=== PATIENT | male | born 1955 | race Caucasian/White ===

== ENCOUNTER 2020-03-30 03:39 | Inpatient (IN) | payer OTHER ==
[~2020-03-30] VITALS: Ht 182.9 cm; Wt 80.0 kg
[2020-03-30] MEDS ORDERED: MORPHINE SULFATE 4 MG/ML SYR/VIAL IV ONE ×2 (04:15→07:00)
[2020-03-30] MEDS ORDERED: ONDANSETRON HCL 4 MG/2 ML VIAL IV ONE ×2 (04:15→07:00)
[2020-03-30 04:54] LABS: Eosinophils # (auto) 0 10 ^3/uL (0-0.8); Eosinophils % (auto) 0.2 % (0.0-7.0); Hemoglobin 17.8 g/dL (13.5-17.5); Monocytes # (auto) 0.7 10 ^3/uL (0-1.3)
[2020-03-30 04:56] LABS: Basophils # (auto) 0 10 ^3/uL (0-0.2); Basophils % (auto) 0.3 % (0.0-2.0); Hematocrit 51.7 % (41.0-53.0); Lymphocytes % (auto) 6.1 % (10.0-50.0); Mean Corpuscular Hemoglobin 30.9 pg (28.0-32.0); Mean Corpuscular Hgb Conc. 34.5 g/dL (32.0-36.0); Mean Corpuscular Volume 89.6 fL (80.0-100.0); Monocytes % (auto) 4.6 % (0.0-12.0); Neutrophils # (auto) 14.4 10 ^3/uL (1.6-8.6); Neutrophils % (auto) 88.8 % (37.0-80.0); Nucleated Red Blood Cells % 0.1 %; Platelet Count (auto) 241 10^3/uL (140-450); Red Blood Cells 5.77 10^6/uL (4.5-5.90); Red Cell Distribution Width 14.4 % (11.8-14.3); White Blood Cell 16.2 10^3/uL (4.4-10.8)
[2020-03-30 05:17] LABS: Albumin 4.4 g/dL (3.4-5.0); Calcium 10.1 mg/dL (8.5-10.1); Potassium 4.3 mmol/L (3.5-5.1)
[2020-03-30 05:21] LABS: BUN/Creatinine Ratio 12.9
[2020-03-30 05:39] LABS: Bilirubin, Total 0.7 mg/dL (0.2-1.0); Total Protein 8.1 g/dL (6.4-8.2)
[2020-03-30] MEDS ORDERED: CLINDAMYCIN 900MG IV 50 ML IV ONE (09:30)
[2020-03-30] MEDS ORDERED: MORPHINE SULF INJ 2 MG/ML SYRINGE 1ML IV PRN ×3 (09:30→10:45)
[2020-03-30] MEDS ORDERED: PIPERACILLIN-TAZOB 3.375GM 100 ML IV ONE (09:30)
[2020-03-30] MEDS ORDERED: SODIUM CHLORIDE 0.9% 3,000 ML IV ONE (09:30)
[2020-03-30] MEDS ORDERED: NITROGLYCERIN 0.4 MG SL TAB SL PRN (09:30)
[2020-03-30] MEDS ORDERED: GASTROGRAFIN 120 ML SOL ONE (10:03)
[2020-03-30] MEDS ORDERED: DEXTROSE (50%) 50ML SYRG IV PRN (10:45)
[2020-03-30] MEDS ORDERED: cefTRIAXone 1GM/50ML D5W 50 ML IV ONE (10:45)
[2020-03-30] MEDS ORDERED: PROMETHAZINE HCL 25 MG/ML 1ML IV PRN (10:45)
[2020-03-30] MEDS ORDERED: BENZOCAINE (DENTAL) 20 % SPRAY 60ML MT ONE ×2 (10:50→11:00)
[2020-03-30] MEDS ORDERED: FAMOTIDINE (10MG/ML) 2ML VL IV ONE (11:15)
[2020-03-30] MEDS: FAMOTIDINE (10MG/ML) 2ML VL IV SCH ×2 (11:40→23:03)
[2020-03-30] MEDS: ACCU-CHEK COMFORT CURVE STRIP VI SCH ×2 (12:55→18:32)
[2020-03-30 15:09] VITALS: BP 130/73
--- NOTE | 2020-03-30 15:09 | NUR ---
Telemetry admit from ER ITZ WHITAKER admitted to Telemetry unit after SBAR received. Patient oriented to LASHAE GAMEZ RN primary RN, unit, room, bed, and unit policies regarding patient care.Patient now on continuous telemetry monitoring, tele box # 13 and telemetry reading on arrival to unit is 87. Patient placed on bedside oxygen 2L NC, respirations even and unlabored. Patient has NG tube to right nares, currently not on suction at this time. Reviewed plan of care with patient, patient verbalized understanding. Patient is NPO at this time. Bed in low and locked position, call light within reach. Will continue to monitor Q1 hour and PRN.
[2020-03-30] MEDS: metroNIDAZOLE 500MG/100ML 100 ML IV SCH ×2 (15:10→23:03)
[2020-03-30] MEDS: SODIUM CHLORIDE 0.9% 1,000 ML IV SCH ×5 (15:10→22:50)
--- NOTE | 2020-03-30 16:13 | NUR ---
Call from Dr. Nikia BANSAL instructed this RN to keep patient NPO, keep NG tube in place and off of suction. Will implement orders. Patient updated on plan of care, verbalized understanding. Will continue to monitor Q1 hour and PRN.
[2020-03-30 16:49] LABS: Urine Bacteria NONE SEEN /hpf (None Seen); Urine Blood 1+ /uL (Negative); Urine Mucus MANY (None Seen); Urine Specific Gravity 1.029 (1.001-1.035); Urine WBC 12 /hpf (0 - 3)
--- NOTE | 2020-03-30 18:50 | NUR ---
Bowel movements Patient has had multiple bowel movements, liquid brown stool. Patient denies pain at this time. Will continue to monitor Q1 hour and PRN.
--- NOTE | 2020-03-30 19:05 | NUR ---
Closing Note Report given to retail shift manager RN. No signs or symptoms of distress noted at this time.
--- NOTE | 2020-03-30 19:20 | NUR ---
Opening Shift Note Assumed care of patient after receiving report from EMMA Arizmendi. Patient awake and alert with no S/S of distress/SOB or pain. Call light within reach, bed in lowest position x2 side rails, HOB low fowlers Instructed on POC and to call for assist PRN, will continue to monitor for changes Q1hr and PRN.
[2020-03-30 21:30] VITALS: BP 114/64
[2020-03-31] MEDS: ACCU-CHEK COMFORT CURVE STRIP VI SCH ×4 (00:22→18:00)
[2020-03-31 04:30] VITALS: BP 111/54
[2020-03-31] MEDS: SODIUM CHLORIDE 0.9% 1,000 ML IV SCH ×4 (05:30→16:45)
[2020-03-31] MEDS: metroNIDAZOLE 500MG/100ML 100 ML IV SCH ×2 (05:52→14:00)
[2020-03-31 06:32] LABS: Basophils # (auto) 0 10 ^3/uL (0-0.2); Basophils % (auto) 0.4 % (0.0-2.0); Eosinophils # (auto) 0.2 10 ^3/uL (0-0.8); Eosinophils % (auto) 2.5 % (0.0-7.0); Hematocrit 41.8 % (41.0-53.0); Hemoglobin 14.1 g/dL (13.5-17.5); Lymphocytes # (auto) 1.5 10 ^3/uL (0.4-5.4); Lymphocytes % (auto) 18.1 % (10.0-50.0); Mean Corpuscular Hemoglobin 30.5 pg (28.0-32.0); Mean Corpuscular Hgb Conc. 33.8 g/dL (32.0-36.0); Mean Corpuscular Volume 90.1 fL (80.0-100.0); Monocytes # (auto) 0.6 10 ^3/uL (0-1.3); Monocytes % (auto) 7.7 % (0.0-12.0); Neutrophils # (auto) 5.9 10 ^3/uL (1.6-8.6); Neutrophils % (auto) 71.3 % (37.0-80.0); Platelet Count (auto) 173 10^3/uL (140-450); Red Blood Cells 4.64 10^6/uL (4.5-5.90); Red Cell Distribution Width 14.4 % (11.8-14.3); White Blood Cell 8.3 10^3/uL (4.4-10.8)
[2020-03-31 06:56] LABS: Potassium 3.9 mmol/L (3.5-5.1)
[2020-03-31 06:59] LABS: BUN/Creatinine Ratio 27.3
[2020-03-31 07:01] LABS: Bilirubin, Total 0.5 mg/dL (0.2-1.0); Total Protein 5.6 g/dL (6.4-8.2)
--- NOTE | 2020-03-31 07:30 | NUR ---
Opening Note Received report from forming tube selector RN. Patient is awake, alert and oriented x4. No signs or symptoms of distress noted at this time. Patient denies pain at this time. Patient has NG tube to right nares, clamped at this time. Patient is on 2L NC, respirations even and unlabored. Reviewed plan of care with patient, patient verbalized understanding. Bed in low and locked position, call light within reach. Will continue to monitor Q1 hour and PRN.
[2020-03-31 09:00] VITALS: BP 98/55
[2020-03-31] MEDS ORDERED: cefTRIAXone 1GM/50ML D5W 50 ML IV SCH (09:00)
--- NOTE | 2020-03-31 10:20 | NUR ---
Patient refusing NG Tube Patient requesting to have NG tube removed at this time. Patient educated on importance of having NG tube in place, patient continues to request to have it removed. NG tube removed. Patient tolerated well. Will continue to monitor Q1 hour and PRN.
[2020-03-31] MEDS: FAMOTIDINE (10MG/ML) 2ML VL IV SCH (10:24)
[2020-03-31 13:00] VITALS: BP 109/56
--- NOTE | 2020-03-31 13:08 | NUR ---
Dr. Nguyễn at bedside Discussing plan of care with patient and this RN. Instructed this RN to advanced diet, he can discharge home later today if he tolerates diet. Patient verbalized understanding. Will continue to monitor Q1 hour and PRN.
[2020-03-31] MEDS ORDERED: ATO40T PO (15:09)
[2020-03-31] MEDS ORDERED: TICA1TAB PO (15:11)
[2020-03-31 16:10] VITALS: BP 109/56
--- NOTE | 2020-03-31 18:48 | NUR ---
Discharge Discharge instructions given as ordered. Encourage to follow up with PMD as instructed. All questions and concerns addressed. Patient verbalized understanding. Medication reconciliation form completed and copy given to patient. IV removed with catheter intact, pressure dressing applied. Telemetry unit returned to ICU. Patient ambulated to private vehicle with all personal belongings. No signs or symptoms of distress noted at this time.
== END 2020-03-31 18:40 | disposition home or self-care (01) | DRG 390 ==
LOC: EDBD 03:39 → ER 03:42 → TELE 03:43 → TELE-EAST 15:25
PROVIDERS: ADMIT Internal Medicine; ATTEND Hospitalist
DX: K56.609 Unspecified intestinal obstruction, unspecified as to partial versus complete obstruction (principal); E66.9 Obesity, unspecified; R73.9 Hyperglycemia, unspecified; F17.210 Nicotine dependence, cigarettes, uncomplicated; I25.10 Atherosclerotic heart disease of native coronary artery without angina pectoris; Z83.3 Family history of diabetes mellitus; Z85.038 Personal history of other malignant neoplasm of large intestine; Z95.5 Presence of coronary angioplasty implant and graft; Z68.29 Body mass index [BMI] 29.0-29.9, adult; D72.829 Elevated white blood cell count, unspecified
CPT/HCPCS: 36415; 71045; 74176; 74250; 80053; 81001; 82962; 83036; 83690; 85025; 93005; 96365; 96367; 96368; 96375; 96376; G0378; J0696; J2405; J2543; J3490

== ENCOUNTER → 2022-12-16 | Outpatient (CLI) | payer OTHER ==
[~2022-12-16] MED LIST: ATO40T PO; TICA1TAB PO
[2022-12-16 10:31] LABS: Basophils # (auto) 0 10 ^3/uL (0-0.2); Basophils % (auto) 0.4 % (0.0-2.0); Eosinophils # (auto) 0.1 10 ^3/uL (0-0.8); Eosinophils % (auto) 1.6 % (0.0-7.0); Hematocrit 47.7 % (41.0-53.0); Hemoglobin 16.5 g/dL (13.5-17.5); Lymphocytes # (auto) 1.2 10 ^3/uL (0.4-5.4); Lymphocytes % (auto) 14.6 % (10.0-50.0); Mean Corpuscular Hemoglobin 30.8 pg (28.0-32.0); Mean Corpuscular Hgb Conc. 34.7 g/dL (32.0-36.0); Mean Corpuscular Volume 88.9 fL (80.0-100.0); Monocytes # (auto) 0.6 10 ^3/uL (0-1.3); Monocytes % (auto) 7.4 % (0.0-12.0); Neutrophils # (auto) 6.5 10 ^3/uL (1.6-8.6); Nucleated Red Blood Cells % 0.1 %; Red Blood Cells 5.36 10^6/uL (4.5-5.90); Red Cell Distribution Width 14.1 % (11.8-14.3); White Blood Cell 8.5 10^3/uL (4.4-10.8)
[2022-12-16 10:42] LABS: Urine Bacteria NONE SEEN /hpf (None Seen); Urine Blood TRACE /uL (Negative); Urine Hyaline Cast FEW /lpf (0 - 2); Urine Mucus FEW (None Seen); Urine Specific Gravity 1.021 (1.001-1.035); Urine WBC 2 /hpf (0 - 3)
[2022-12-16 12:18] LABS: Albumin 4.2 g/dL (3.4-5.0); BUN/Creatinine Ratio 18.1; Calcium 9.4 mg/dL (8.5-10.1); Potassium 4.7 mmol/L (3.5-5.1)
[2022-12-16 12:25] LABS: Bilirubin, Total 0.6 mg/dL (0.2-1.0); Total Protein 7.1 g/dL (6.4-8.2)
== END | disposition home or self-care (01) ==
LOC: LAB 09:47
PROVIDERS: ATTEND Internal Medicine
DX: E55.9 Vitamin D deficiency, unspecified (principal); E79.0 Hyperuricemia without signs of inflammatory arthritis and tophaceous disease; E61.2 Magnesium deficiency; R73.09 Other abnormal glucose; R94.6 Abnormal results of thyroid function studies; D51.9 Vitamin B12 deficiency anemia, unspecified; R82.79 Other abnormal findings on microbiological examination of urine; R82.90 Unspecified abnormal findings in urine
CPT/HCPCS: 36415; 80053; 80061; 81001; 82306; 82607; 83036; 83735; 84443; 84550; 85025

== ENCOUNTER 2023-11-12 09:45 | Emergency (ER) | payer OTHER ==
[~2023-11-12] VITALS: Ht 185.4 cm; Wt 87.5 kg
[2023-11-12 10:13] LABS: Basophils # (auto) 0 10 ^3/uL (0-0.2); Basophils % (auto) 0.1 % (0.0-2.0); Eosinophils # (auto) 0.2 10 ^3/uL (0-0.8); Eosinophils % (auto) 1.4 % (0.0-7.0); Hematocrit 48.2 % (41.0-53.0); Hemoglobin 16.3 g/dL (13.5-17.5); Lymphocytes # (auto) 1.6 10 ^3/uL (0.4-5.4); Lymphocytes % (auto) 13.9 % (10.0-50.0); Mean Corpuscular Hgb Conc. 33.7 g/dL (32.0-36.0); Mean Corpuscular Volume 91.9 fL (80.0-100.0); Monocytes # (auto) 0.9 10 ^3/uL (0-1.3); Monocytes % (auto) 7.4 % (0.0-12.0); Neutrophils # (auto) 8.9 10 ^3/uL (1.6-8.6); Neutrophils % (auto) 77.2 % (37.0-80.0); Nucleated Red Blood Cells % 0.1 %; Red Blood Cells 5.25 10^6/uL (4.5-5.90); Red Cell Distribution Width 14.7 % (11.8-14.3); White Blood Cell 11.5 10^3/uL (4.4-10.8)
[2023-11-12 10:19] VITALS: TEMP 98.1
[2023-11-12 10:20] VITALS: PULSE 63; RESP 15; O2SAT 97
[2023-11-12] MEDS ORDERED: NITROGLYCERIN 2% OINT 1GM PKG TD STA (10:22)
[2023-11-12] MEDS ORDERED: ASPirin 81 mg TAB PO ONE (10:30)
[2023-11-12 10:37] LABS: Alanine Aminotransferase 50 U/L (7-40); Albumin 4.6 g/dL (3.2-4.8); Alkaline Phosphatase 101 U/L (46-116); Anion Gap 6 (5-15); Aspartate Aminotransferase 28 U/L (13-40); BUN/Creatinine Ratio 18.4 (10.0-20.0); Blood Urea Nitrogen 19 mg/dL (9-23); Calcium 9.8 mg/dL (8.5-10.1); Carbon Dioxide 24 mmol/L (20-30); Chloride 108 mmol/L (98-107); Glucose 134 mg/dL (74-106); Potassium 4.6 mmol/L (3.5-5.1); Sodium 138 mmol/L (136-145)
[2023-11-12 10:38] LABS: Bilirubin, Total 0.6 mg/dL (0.2-1.0); Total Protein 6.8 g/dL (5.7-8.2)
[2023-11-12 11:11] LABS: INR 0.99 (0.9-1.15); Partial Thromboplastin Time 25.1 SEC (24.5-34.5); Prothrombin Time 10.4 sec (9.3-11.8)
[2023-11-12] MEDS ORDERED: IOHEXOL 350 MG/ML 100ML IJ ONE (11:28)
[2023-11-12 12:21] LABS: Urine Bacteria NONE SEEN /hpf (None Seen); Urine Blood Negative /uL (Negative); Urine Clarity Clear (Clear); Urine Color Yellow (Yellow); Urine Protein, UAD Negative (Negative); Urine Specific Gravity 1.015 (1.001-1.035); Urine Urobilinogen Normal (Negative); Urine WBC <1 /hpf (0 - 3)
[2023-11-12] MEDS ORDERED: MORPHINE SULFATE INJ 2 MG/ml SYRG IV ONE (13:45)
[2023-11-12] MEDS ORDERED: ONDANSETRON HCL 4 MG/2 ML VIAL IV ONE (13:45)
[2023-11-12 15:20] VITALS: BP 106/55; PULSE 66; RESP 15; O2SAT 96
== END 2023-11-12 15:17 | disposition left against medical advice (07) ==
LOC: ER 09:45
DX: R07.89 Other chest pain (principal); I25.2 Old myocardial infarction; I25.10 Atherosclerotic heart disease of native coronary artery without angina pectoris; F17.210 Nicotine dependence, cigarettes, uncomplicated; Z85.9 Personal history of malignant neoplasm, unspecified; Z79.899 Other long term (current) drug therapy
CPT/HCPCS: 36415; 71045; 71275; 80053; 81001; 83735; 83880; 84484; 85025; 85379; 85610; 85730; 93005; 99285; Q9967

== ENCOUNTER → 2024-02-27 | Day surgery (SDC) | payer OTHER ==
[2024-02-24 12:12] LABS: Basophils # (auto) 0 10 ^3/uL (0-0.2); Basophils % (auto) 0.3 % (0.0-2.0); Eosinophils # (auto) 0.1 10 ^3/uL (0-0.8); Hematocrit 50.5 % (41.0-53.0); Hemoglobin 16.7 g/dL (13.5-17.5); Lymphocytes # (auto) 1.4 10 ^3/uL (0.4-5.4); Lymphocytes % (auto) 13.8 % (10.0-50.0); Mean Corpuscular Hemoglobin 30.5 pg (28.0-32.0); Mean Corpuscular Hgb Conc. 33.1 g/dL (32.0-36.0); Mean Corpuscular Volume 92.3 fL (80.0-100.0); Monocytes # (auto) 0.8 10 ^3/uL (0-1.3); Monocytes % (auto) 7.7 % (0.0-12.0); Neutrophils # (auto) 7.9 10 ^3/uL (1.6-8.6); Neutrophils % (auto) 77.2 % (37.0-80.0); Nucleated Red Blood Cells % 0.3 %; Red Blood Cells 5.47 10^6/uL (4.5-5.90); Red Cell Distribution Width 14.7 % (11.8-14.3); White Blood Cell 10.3 10^3/uL (4.4-10.8)
[2024-02-24 12:27] LABS: INR 0.96 (0.9-1.15); Partial Thromboplastin Time 24.9 SEC (24.5-34.5); Prothrombin Time 10.2 sec (9.3-11.8)
[2024-02-24 12:32] LABS: Alanine Aminotransferase 57 U/L (7-40); Albumin 4.9 g/dL (3.2-4.8); Alkaline Phosphatase 106 U/L (46-116); Anion Gap 3 (5-15); Aspartate Aminotransferase 19 U/L (13-40); BUN/Creatinine Ratio 13.2 (10.0-20.0); Bilirubin, Total 0.7 mg/dL (0.2-1.0); Blood Urea Nitrogen 14 mg/dL (9-23); Calcium 10.6 mg/dL (8.5-10.1); Carbon Dioxide 28 mmol/L (20-30); Chloride 108 mmol/L (98-107); Glucose 104 mg/dL (74-106); Potassium 4.5 mmol/L (3.5-5.1); Sodium 139 mmol/L (136-145); Total Protein 7.2 g/dL (5.7-8.2)
[~2024-02-27] VITALS: Ht 188 cm; Wt 88.5 kg
[~2024-02-27] MED LIST changes: -ATO40T PO; +ATOR-507 PO; +DexAMETHasone SOD PHOS 10MG/1ML VIAL INJ ONE; +EZET10TA22 PO; +MEPERIDINE HCL (25 MG/ML) 1ML VIAL ONE; +MIDAZOLAM HCL 2MG/2ML 2ml VIAL (1mg/ml) ONE; +fentaNYL CITRATE 100 MCG/2 ML VL ONE
[2024-02-27 14:35] VITALS: PULSE 66; RESP 16; TEMP 97.8; O2SAT 98
[2024-02-27 15:20] VITALS: BP 130/67; PULSE 69; RESP 15; O2SAT 91
== END | disposition home or self-care (01) ==
LOC: GI 09:28
PROVIDERS: ATTEND Internal Medicine Gastroenterology
DX: R19.4 Change in bowel habit (principal); K44.9 Diaphragmatic hernia without obstruction or gangrene; K29.50 Unspecified chronic gastritis without bleeding; D12.3 Benign neoplasm of transverse colon; K25.9 Gastric ulcer, unspecified as acute or chronic, without hemorrhage or perforation; K63.5 Polyp of colon; K64.8 Other hemorrhoids; F17.210 Nicotine dependence, cigarettes, uncomplicated; J44.9 Chronic obstructive pulmonary disease, unspecified; I25.2 Old myocardial infarction; Z93.4 Other artificial openings of gastrointestinal tract status; Z86.010 Personal history of colon polyps; Z85.038 Personal history of other malignant neoplasm of large intestine; Z95.5 Presence of coronary angioplasty implant and graft; Z80.8 Family history of malignant neoplasm of other organs or systems; Z79.899 Other long term (current) drug therapy; Z98.890 Other specified postprocedural states
CPT/HCPCS: 36415; 43239; 45380; 80053; 85025; 85610; 85730; 88305; 88312; 88342; J1100; J2175; J2250; J3010; J7030

== ENCOUNTER → 2024-08-31 | Outpatient (CLI) | payer OTHER ==
[~2024-08-31] MED LIST changes: -DexAMETHasone SOD PHOS 10MG/1ML VIAL INJ ONE; -MEPERIDINE HCL (25 MG/ML) 1ML VIAL ONE; -MIDAZOLAM HCL 2MG/2ML 2ml VIAL (1mg/ml) ONE; -fentaNYL CITRATE 100 MCG/2 ML VL ONE
[2024-08-31 08:59] LABS: Urine Bacteria None Seen /hpf (None Seen)
[2024-08-31 10:06] LABS: Basophils # (auto) 0 10 ^3/uL (0-0.2); Basophils % (auto) 0.4 % (0.0-2.0); Eosinophils # (auto) 0.3 10 ^3/uL (0-0.8); Eosinophils % (auto) 4.1 % (0.0-7.0); Hematocrit 47.5 % (41.0-53.0); Hemoglobin 16.2 g/dL (13.5-17.5); Lymphocytes # (auto) 1.4 10 ^3/uL (0.4-5.4); Mean Corpuscular Hemoglobin 31.4 pg (28.0-32.0); Mean Corpuscular Hgb Conc. 34.2 g/dL (32.0-36.0); Mean Corpuscular Volume 91.8 fL (80.0-100.0); Monocytes # (auto) 0.6 10 ^3/uL (0-1.3); Monocytes % (auto) 8.3 % (0.0-12.0); Neutrophils % (auto) 68.2 % (37.0-80.0); Nucleated Red Blood Cells % 0.1 %; Platelet Count (auto) 189 10^3/uL (140-450); Red Blood Cells 5.18 10^6/uL (4.5-5.90); White Blood Cell 7.3 10^3/uL (4.4-10.8)
[2024-08-31 10:18] LABS: Urine Blood Negative /uL (Negative); Urine Clarity Clear (Clear); Urine Color Yellow (Yellow); Urine Protein, UAD Negative (Negative); Urine Specific Gravity 1.021 (1.001-1.035); Urine Urobilinogen Normal (Negative); Urine WBC 1 /hpf (0 - 3); Urine pH 5.5 (5.0-9.0)
[2024-08-31 10:25] LABS: Alanine Aminotransferase 50 U/L (7-40); Albumin 4.4 g/dL (3.2-4.8); Alkaline Phosphatase 99 U/L (46-116); Anion Gap 9 (5-15); BUN/Creatinine Ratio 16.5 (10.0-20.0); Blood Urea Nitrogen 17 mg/dL (9-23); Carbon Dioxide 24 mmol/L (20-31); Chloride 112 mmol/L (98-107); Glucose 111 mg/dL (74-106); LDL Cholesterol 52 mg/dL (< 100); Magnesium 2.1 mg/dL (1.6-2.6); Potassium 4.3 mmol/L (3.5-5.1); Sodium 145 mmol/L (136-145); Triglycerides 102 mg/dL (< 150)
[2024-08-31 10:26] LABS: Aspartate Aminotransferase 22 U/L (13-40)
[2024-08-31 10:27] LABS: Bilirubin, Total 0.6 mg/dL (0.2-1.0); Cholesterol 112 mg/dL (< 200); HDL Cholesterol 43 mg/dL (40-59); Total Protein 6.6 g/dL (5.7-8.2)
[2024-08-31 11:45] LABS: Uric Acid 5.7 mg/dL (3.7-9.2)
[2024-08-31 12:15] LABS: Folate (Folic Acid) 12.78 ng/mL (>5.38)
== END | disposition home or self-care (01) ==
LOC: LAB 08:33
PROVIDERS: ATTEND Internal Medicine
DX: C44.92 Squamous cell carcinoma of skin, unspecified (principal); E55.9 Vitamin D deficiency, unspecified; E78.2 Mixed hyperlipidemia; R73.03 Prediabetes; I25.118 Atherosclerotic heart disease of native coronary artery with other forms of angina pectoris; F17.200 Nicotine dependence, unspecified, uncomplicated; Z79.899 Other long term (current) drug therapy
CPT/HCPCS: 36415; 80053; 80061; 81001; 82306; 82607; 82746; 83036; 83735; 84443; 84550; 85025; 87086

== ENCOUNTER 2024-10-08 15:05 | Emergency (ER) | payer OTHER ==
[~2024-10-08] VITALS: Ht 185.4 cm; Wt 89.3 kg
--- NOTE | 2024-10-08 15:48 | ED.PDOC ---
General HPI Comments 68 y.o male presents to the ED for a chief complaint of ongoing chronic intermittent hematuria that started one year ago. Patient reports following up with multiple PCP's and Dr. Canada for evaluation and has had US and urine tests done which came out normal. Patient mentions he was scheduled for a cystogram on 09/27/24 but it got cancelled and is now experiencing suprapubic discomfort. No dysuria, fever, or chills reported. Vital signs were stable on arrival. Chief Complaint: Urinary Time Seen by MD: 15:26 Primary Care Provider: IBETH Reviewed notes: Nurses Notes, Medications, Allergies Allergies: Coded Allergies: NO KNOWN ALLERGIES (Unverified , 03/30/20) Home Meds Active Scripts Acetaminophen (Acetaminophen) 500 Mg Tab, 500 MG PO Q4HP PRN, #30 TAB Prov:DIONI CHEUNG PAC 10/08/24 Levofloxacin Hemihydrate (LEVAQUIN 500 MG) 500 Mg Tab, 1 TAB PO DAILY, #7 TAB Prov:DIONI CHEUNG PAC 10/08/24 Reported Medications Ezetimibe (Zetia) 10 Mg Tab, 10 MG PO DAILY, TAB 02/24/24 Ticagrelor Base (Brilinta) 60 Mg Tab, 60 MG PO BID, TAB 03/31/20 Atorvastatin Calcium (Lipitor) 40 Mg Tab, 1 TAB PO QPM, #90 TAB 1 Refill 03/31/20 Information Source: Patient Mode of Arrival: Ambulatory Severity: Moderate Timing: Other Onset: Spontaneous Symptoms: Hematuria History of: Kidney stone Location: Suprapubic Modifying factors: None associated signs and symptoms: Abdominal Pain, Hematuria Past Medical History PAST MEDICAL HISTORY: CAD, Cancer, Kidney Stones, [place] Surgical History: PTCA Family History Family History: Unknown Social History Smoker: Cigarettes Alcohol: Denies ETOH Use Drugs: Denies Drug Use Lives In: Home Constitutional: denies: chills, diaphoresis, fatigue, fever, malaise, sweats, weakness, others EENTM: denies: blurred vision, double vision, ear bleeding, ear discharge, ear drainage, ear pain, ear ringing, eye pain, eye redness, hearing loss, mouth pain, mouth swelling, nasal discharge, nose bleeding, nose congestion, nose pain, photophobia, tearing, throat pain, throat swelling, voice changes, others Respiratory: denies: cough, hemoptysis, orthopnea, SOB at rest, shortness of breath, SOB with excertion, stridor, wheezing, others Cardiovascular: denies: chest pain, dizzy spells, diaphoresis, Dyspnea on exertion, edema, irregular heart beat, left arm pain, lightheadedness, palpitations, PND, syncope, others Gastrointestinal: reports: abdominal pain; denies: abdomen distended, blood streaked bowels, constipated, diarrhea, dysphagia, difficulty swallowing, hematemesis, melena, nausea, poor appetite, poor fluid intake, rectal bleeding, rectal pain, vomiting, others Genitourinary: reports: hematuria; denies: burning, dysuria, flank pain, frequency, incontinence, penile discharge, penile sore, pain, testicle pain, testicle swelling, urgency, others Neurological: denies: dizziness, fainting, headache, left sided numbness, left sided weakness, numbness, paresthesia, pre-existing deficit, right sided numbness, right sided weakness, seizure, speech problems, tingling, tremors, weakness, others Musculoskeletal: denies: back pain, gout, joint pain, joint swelling, muscle pain, muscle stiffness, neck pain, others Integumetry: denies: bruises, change in color, change in hair/nails, dryness, laceration, lesions, lumps, rash, wounds, others Allergic/Immunocompromised: denies: Difficulty Healing, Frequent Infections, Hives, Itching, others Hematologic/Lymphatic: denies: anemia, blood clots, easy bleeding, easy bruising, swollen glands, others Endocrine: denies: excessive hunger, excessive sweating, excessive thirst, excessive urination, flushing, intolerance to cold, intolerance to heat, unexpl ained weight gain, unexplained weight loss, others Psychiatric: denies: anxiety, bipolar disorder, depression, hopeless, panic disorder, schizophrenia, sleepless, suicidal, others All Other Systems: Reviewed and Negative Physical Exam General Appearance: No Apparent Distress, Normal HEENT: Normal ENT Inspection, Pharynx Normal, TMs Normal Neck: Full Range of Motion, Non-Tender, Normal, Normal Inspection Respiratory: Chest Non-Tender, Lungs Clear, No Accessory Muscle Use, No Respiratory Distress, Normal Breath Sounds Cardiovascular: No Edema, No JVD, No Murmur, No Gallop, Normal Peripheral Pulses, Regular Rate/Rhythm Breast Exam: Deferred Gastrointestinal: Suprapubic, Tenderness Genitalia: Deferred Pelvic: Deferred Rectal: Deferred Extremities: No calf tenderness, Normal capillary refill, Normal inspection, Normal range of motion, Non-tender, No pedal edema Musculoskeletal : Apperance: Normal Neurologic: Alert, ct manager II-XII nml as Tested, No Motor Deficits, Normal Affect, Normal Mood, No Sensory Deficits Cerebellar Function: Normal Reflexes: Normal Skin: Dry, Normal Color, Warm Lymphatic: No Adenopathy Was a procedure done? Was a procedure done?: No Differential Diagnosis Kidney stone (Female): N/A Urinary Problem (Male): Prostatitis, Urethritis, Urolithiasis, UTI, Other (Bladder mass) X-Ray, Labs, Meds, VS Vital Signs Date Time Temp Pulse Resp B/P (MAP) Pulse Ox O2 Delivery O2 Flow Rate FiO2 10/08/24 17:36 97.5 80 20 114/69 (84) 99 97.5 10/08/24 17:36 20 98 Room Air 10/08/24 15:18 98.3 91 18 133/86 (102) 97 Lab Test 10/08/24 16:00 10/08/24 15:12 Range/Units White Blood Count 8.3 4.4-10.8 10^3/uL Red Blood Count 5.37 4.5-5.90 10^6/uL Hemoglobin 16.7 13.5-17.5 g/dL Hematocrit 49.7 41.0-53.0 % Mean Corpuscular Volume 92.5 80.0-100.0 fL Mean Corpuscular Hemoglobin 31.1 28.0-32.0 pg Mean Corpuscular Hemoglobin Concent 33.7 32.0-36.0 g/dL Red Cell Distribution Width 14.6 H 11.8-14.3 % Platelet Count 191 140-450 10^3/uL Mean Platelet Volume 8.1 6.9-10.8 fL Neutrophils (%) (Auto) 67.8 37.0-80.0 % Lymphocytes (%) (Auto) 21.1 10.0-50.0 % Monocytes (%) (Auto) 8.9 0.0-12.0 % Eosinophils (%) (Auto) 1.8 0.0-7.0 % Basophils (%) (Auto) 0.4 0.0-2.0 % Neutrophils # (Auto) 5.6 1.6-8.6 10 ^3/uL Lymphocytes # (Auto) 1.7 0.4-5.4 10 ^3/uL Monocytes # (Auto) 0.7 0-1.3 10 ^3/uL Eosinophils # (Auto) 0.2 0-0.8 10 ^3/uL Basophils # (Auto) 0 0-0.2 10 ^3/uL Nucleated Red Blood Cells 0.3 % Sodium Level 142 136-145 mmol/L Potassium Level 4.2 3.5-5.1 mmol/L Chloride Level 109 H 98-107 mmol/L Carbon Dioxide Level 27 20-31 mmol/L Anion Gap 6 5-15 Blood Urea Nitrogen 15 9-23 mg/dL Creatinine 1.06 0.700-1.30 mg/dL Glomerular Filtration Rate Calc 76 >90 mL/min BUN/Creatinine Ratio 14.2 10.0-20.0 Serum Glucose 91 74-106 mg/dL Lactic Acid Level 1.7 0.4-2.0 mmol/L Calcium Level 10.6 H 8.7-10.4 mg/dL Total Bilirubin 0.6 0.2-1.0 mg/dL Aspartate Amino Transferase (AST) 25 13-40 U/L Alanine Aminotransferase (ALT) 51 H 7-40 U/L Alkaline Phosphatase 120 H 46-116 U/L Total Protein 7.0 5.7-8.2 g/dL Albumin 4.7 3.2-4.8 g/dL Urine Color Colorless Yellow Urine Clarity Turbid H Clear Urine pH 6.5 5.0-9.0 Urine Specific Wynne 1.010 1.001-1.035 Urine Protein Trace H Negative Urine Ketones Negative Negative Urine Blood 3+ H Negative /uL Urine Nitrite Negative Negative Urine Bilirubin Negative Negative Urine Urobilinogen Normal Negative mg/dL Urine Leukocyte Esterase 1+ Negative /uL Urine RBC 2448 0 - 3 /hpf Urine WBC 12 0 - 3 /hpf Urine Squamous Epithelial Cells None seen <5 /hpf Urine Bacteria Few H None Seen /hpf Urine Mucus Few None Seen Urine Glucose Normal Normal mg/dL Current Medications Medications (Trade) Dose Ordered Sig/Jon Route Start Time Stop Time Status Last Admin Levofloxacin (Levaquin Tablet) 750 mg ONCE ONCE PO 10/08/24 18:00 10/08/24 18:01 DC 12/27/24 18:08 X-Ray, Labs, Meds, VS Comment All studies performed the ED today were evaluated by me personally. Laboratories showed a urinary tract infection with significant blood deposition in the urine. CT of the abdomen and pelvis with contrast revealed a 1.1 x 1.1 x 1.6 cm density within the left posterior urinary bladder at the level of the ureterovesicular junction concerning for mass. Punctate nonobstructing left renal calculus. 2.2 cm left renal cyst. Mild wall thickening of the proximal small bowel. Minimal wall edema of the ascending colon. Patient appears to have a bladder mass that is causing his hematuria event. Patient will need to be seen by a specialist and oncologist for long-term evaluation and management. Time of 1ST Reevaluation: 18:12 Reevaluation 1ST: Improved Consultation: PCP, Urology, Other (Oncology) Patient Education/Counseling: Diagnosis, Treatment, Prognosis Family Education/Counseling: Diagnosis, Treatment, Prognosis Departure 1 Departure Time of Disposition: 18:12 Impression: Primary Impression: UTI (urinary tract infection) Additional Impression: Bladder mass Disposition: 01 HOME / SELF CARE / HOMELESS Condition: Stable Additional Instructions: Advised patient utilize antibiotics as directed until completion additionally, patient will need to follow up with the primary care provider for urologic specialty as well as Oncology to address his bladder mass concerns. e-Prescriptions Acetaminophen (Acetaminophen) 500 Mg Tab 500 MG PO Q4HP PRN, #30 TAB Prov: DIONI CHEUNG PAC 10/08/24 Levofloxacin Hemihydrate (LEVAQUIN 500 MG) 500 Mg Tab 1 TAB PO DAILY, #7 TAB Prov: DIONI CHEUNG PAC 10/08/24 Discharged With: Self, Spouse Critical Care Note Critical Care Time?: No Stability Stability form required: No I personally scribed for DIONI CHEUNG PAC ([email or web address]) on 10/08/24 at 15:48. Electronically submitted by Lena Stafford ([facility]). DIONI CHEUNG PAC Oct 08, 2024 15:48 LASHANDA OWENS MD Oct 08, 2024 18:38
[2024-10-08 16:15] LABS: Basophils # (auto) 0 10 ^3/uL (0-0.2); Basophils % (auto) 0.4 % (0.0-2.0); Eosinophils # (auto) 0.2 10 ^3/uL (0-0.8); Eosinophils % (auto) 1.8 % (0.0-7.0); Hematocrit 49.7 % (41.0-53.0); Hemoglobin 16.7 g/dL (13.5-17.5); Lymphocytes # (auto) 1.7 10 ^3/uL (0.4-5.4); Lymphocytes % (auto) 21.1 % (10.0-50.0); Mean Corpuscular Hemoglobin 31.1 pg (28.0-32.0); Mean Corpuscular Hgb Conc. 33.7 g/dL (32.0-36.0); Mean Corpuscular Volume 92.5 fL (80.0-100.0); Monocytes # (auto) 0.7 10 ^3/uL (0-1.3); Monocytes % (auto) 8.9 % (0.0-12.0); Neutrophils # (auto) 5.6 10 ^3/uL (1.6-8.6); Neutrophils % (auto) 67.8 % (37.0-80.0); Nucleated Red Blood Cells % 0.3 %; Platelet Count (auto) 191 10^3/uL (140-450); Red Blood Cells 5.37 10^6/uL (4.5-5.90); Red Cell Distribution Width 14.6 % (11.8-14.3); White Blood Cell 8.3 10^3/uL (4.4-10.8)
[2024-10-08 16:24] LABS: Urine Bacteria FEW /hpf (None Seen); Urine Blood 3+ /uL (Negative); Urine Clarity Turbid (Clear); Urine Color Colorless (Yellow); Urine Mucus FEW (None Seen); Urine Protein, UAD TRACE (Negative); Urine Urobilinogen Normal (Negative); Urine WBC 12 /hpf (0 - 3); Urine pH 6.5 (5.0-9.0)
[2024-10-08 16:29] LABS: Albumin 4.7 g/dL (3.2-4.8); Anion Gap 6 (5-15); Aspartate Aminotransferase 25 U/L (13-40); BUN/Creatinine Ratio 14.2 (10.0-20.0); Blood Urea Nitrogen 15 mg/dL (9-23); Carbon Dioxide 27 mmol/L (20-31); Glucose 91 mg/dL (74-106); Potassium 4.2 mmol/L (3.5-5.1); Sodium 142 mmol/L (136-145)
[2024-10-08 16:30] LABS: Bilirubin, Total 0.6 mg/dL (0.2-1.0)
[2024-10-08 16:44] LABS: Alanine Aminotransferase 51 U/L (7-40); Alkaline Phosphatase 120 U/L (46-116); Calcium 10.6 mg/dL (8.7-10.4); Chloride 109 mmol/L (98-107)
[2024-10-08 17:36] VITALS: BP 114/69; PULSE 80; RESP 20; TEMP 97.5; O2SAT 98
--- NOTE | 2024-10-08 17:52 | DVH ---
Exam: CT CT AB PEL WITH IV CON ONLY History: Alberto hematuria Comparison Study: 03/30/2020 TECHNIQUE: Multidetector CT of the and pelvis with contrast. Axial, coronal and sagittal multiplanar reformats were obtained from the axial data set by the technologist. Radiation Dose Information: CT Dose: CTDI volume is 24.84 mGy. Dose-length product is 1303.58 mGy*cm FINDINGS: Bibasilar atelectasis. Partially visualized heart is unremarkable. Liver, spleen, gallbladder, pancreas and left adrenal gland are unremarkable. 2.2 x 1 cm right adrena l nodule measuring up to 26 Hounsfield units. Punctate nonobstructing left renal lower pole calculus. 2.2 cm left renal upper pole cyst. Mild bilat eral pelviectasis. Bilateral ureters unremarkable. There is 1.1 x 1.1 x 1.6 cm density within the lef t posterior urinary bladder level of the left ureteral vesicle junction. Prostate is normal in size w ith multiple coarse calcifications. Stomach is unremarkable. Mild wall thickening of proximal small bowel loops. The remainder of the sm all bowel loops unremarkable. Appendix is unremarkable. Minimal wall edema of the ascending colon. Mo derate amount of fecal material within the colon. No evidence of intraperitoneal free air or free fluid. Dilatation of the infrarenal aorta up to 3 cm. [id number] atherosclerotic calcification of the aorta and bilateral iliacs. No significant lymphadenopathy. Redemonstration of presacral soft tissue thickening and calcification ; relatively unchanged from chano or imaging of 03/30/2020. Small fat containing bilateral inguinal hernias. The soft tissues unremarkable. Diffuse demineraliza tion. No destructive osseous lesions are noted. Mild loss of vertebral body height of L5. 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 IMPRESSION: 1.1 x 1.1 x 1.6 cm density within the left posterior urinary bladder at the level of the ureterovesic al junction concerning for mass. Punctate nonobstructing left renal calculus. 2.2 cm left renal cyst. Mild wall thickening of proximal small bowel loops which may be due to inadequate distention with ent eritis not excluded. Minimal wall edema of the ascending colon. Correlate for mild colitis. Moderate amount of fecal mat erial within the colon. Additional findings as above.
[2024-10-08] MEDS: levoFLOXacin 250 MG TAB PO ONE (18:08)
[2024-10-08] MEDS ORDERED: LEVO500T91 PO (18:13)
[2024-10-08] MEDS ORDERED: ACET500T58 PO (18:13)
[2024-10-08] MEDS: IOHEXOL 300 MG/ML 100ML BOTTLE IJ ONE (18:27)
== END 2024-10-08 18:25 | disposition home or self-care (01) ==
LOC: ER 15:05
DX: N39.0 Urinary tract infection, site not specified (principal); N32.9 Bladder disorder, unspecified; F17.210 Nicotine dependence, cigarettes, uncomplicated; I25.10 Atherosclerotic heart disease of native coronary artery without angina pectoris; N28.1 Cyst of kidney, acquired; R31.0 Gross hematuria; Z98.890 Other specified postprocedural states
CPT/HCPCS: 36415; 74177; 80053; 81001; 83605; 85025; 99285; Q9967

== ENCOUNTER 2024-10-14 12:02 | Inpatient (IN) | payer OTHER ==
[2024-10-14] VITALS (8 sets, daily range): BP systolic 115–156; BP diastolic 50–61; PULSE 68–98; RESP 11–20; TEMP 97.3–98.1; O2SAT 94–100
[~2024-10-14] VITALS: Ht 185.4 cm; Wt 94.2 kg
[~2024-10-14 12:02] MED LIST changes: +ACET500T58 PO; +LEVO500T91 PO
[2024-10-14] MEDS ORDERED: MIDAZOLAM HCL 2MG/2ML 2ml VIAL (1mg/ml) ONE (13:15)
[2024-10-14] MEDS ORDERED: fentaNYL CITRATE 100 MCG/2 ML VL ONE (13:15)
[2024-10-14] MEDS ORDERED: PROPOFOL 10 MG/ML 20 ML IV ONE (13:15)
[2024-10-14] MEDS ORDERED: METOCLOPRAMIDE HCL 5MG/ml INJ 2ml VIAL ONE (13:17)
[2024-10-14] MEDS ORDERED: ONDANSETRON HCL 4 MG/2 ML VIAL ONE (13:17)
[2024-10-14] MEDS ORDERED: ONDANSETRON HCL 4 MG/2 ML VIAL IV ONE (13:30)
[2024-10-14] MEDS ORDERED: HYDROmorphone HCL 2 MG/ML VL/or syr IV PRN (13:30)
[2024-10-14] MEDS ORDERED: CIPROFLOXACIN 400MG/200ML 200 ML IV ONE (14:42)
[2024-10-14] MEDS ORDERED: MEPERIDINE HCL (25 MG/ML) 1ML VIAL ONE (15:01)
[2024-10-14] MEDS: HYDROmorphone HCL 2 MG/ML VL/or syr IV ONE ×2 (16:10→16:40)
[2024-10-14] MEDS ORDERED: MORPHINE SULFATE 4 MG/ML SYR/VIAL ONE (16:57)
--- NOTE | 2024-10-14 18:49 | POSTOP ---
Post-Operative Note Post-Operative Note Preop Diagnosis Gross hematuria Bladder mass on CT scan Positive smoking history Postop Diagnosis: Same Operation performed Trans urethral resection of bladder tumor Specimen Left trigone/posterior bladder mass Anesthesia: General Anesthesiologist: Dr. Dave Surgeon Yanci Goff Date 10/14/24 Time 18:47 YANCI GOFF MD Oct 14, 2024 18:49
[2024-10-14] MEDS: MORPHINE SULFATE 4 MG/ML SYR/VIAL IV PRN (21:13)
[2024-10-15] VITALS (7 sets, daily range): BP systolic 103–112; BP diastolic 43–62; PULSE 64–75; RESP 17–19; TEMP 97.8–98.1; O2SAT 90–94
--- NOTE | 2024-10-15 09:29 | DVHDS2 ---
New Physician D'charge PN Admitting Diagnosis Admitting Diagnosis Gross hematuria Bladder mass on CT scan Positive smoking history Discharge Diagnosis Same Operations or Procedures Trans urethral resection of bladder tumor Reason(s) For Hospitalization Surgery Treatment Plan Discharge Condition of Discharge Fair Disposition Home Discharge Instructions Diet: Regular Activity: Light activity Activity comment: as tolerated Avoid ASA and any other blood thinners Medications: given Follow Up Care Follow Up/Referral: 2 weeks Discharge Statement: "Patient was advised to return to the ER or call 911 if any headaches, dizziness, shortness of breath, chest pain, abdominal pain, bleeding, fevers, or worsening of medical condition. Patient was counseled about treatment plan, medications, possible side effects, patientverbalized understanding. All questions were answered to the best of my ability. This discharge took greater then 30 minutes in planning, reviewing documentation, counseling the patient, and discussing with other team members." YANCI GOFF MD Oct 15, 2024 09:29
--- NOTE | 2024-10-15 10:04 | ECG ---
[facility] Test Date: 2024-10-14 Test Time: 14:16:21 Pat Name: ITZ WHITAKER Department: Room: 0285 B Gender: M [employer] Lead: fernando : 1955 Requested By: YANCI GOFF Order Number: [id number] Reading MD: Ankit Gipson Measurements Intervals [place] Rate: 67 P: 62 NC: 205 QRS: -66 QRSD: 105 T: 58 QT: 414 QTc: 437 Interpretive Statements Sinus rhythm Multiple ventricular premature complexes Left anterior fascicular block Poor R wave progrssion, precordial leads Electronically Signed On 10-15-2024 10:49:37 PST by Ankit Gipson Please click the below link to view image of tracing.
== END 2024-10-15 14:00 | disposition home or self-care (01) | DRG 670 ==
LOC: OVERFLOW 12:02 → WEST WING 13:00
PROVIDERS: ADMIT Internal Medicine; ATTEND Internal Medicine
PROC: 0TBB8ZZ Excision of Bladder, Via Natural or Artificial Opening Endoscopic (ICD-10-PCS; principal; 2024-10-14 14:44)
DX: D49.4 Neoplasm of unspecified behavior of bladder (principal); R31.0 Gross hematuria; Z87.891 Personal history of nicotine dependence; Z79.899 Other long term (current) drug therapy
CPT/HCPCS: 93005; G0378; J2250; J2405; J2704

== ENCOUNTER → 2024-10-29 | Outpatient (CLI) | payer OTHER ==
[2024-10-29 08:34] LABS: Urine Bacteria None Seen /hpf (None Seen)
[2024-10-29 08:46] LABS: Urine Blood 1+ /uL (Negative); Urine Clarity Clear (Clear); Urine Color Light-Yellow (Yellow); Urine Mucus FEW (None Seen); Urine Protein, UAD TRACE (Negative); Urine Specific Gravity 1.019 (1.001-1.035); Urine Squamous Epithelial Cell FEW /hpf (<5); Urine Urobilinogen Normal (Negative); Urine WBC 24 /hpf (0 - 3)
[2024-10-29 09:21] LABS: Albumin 4.8 g/dL (3.2-4.8); Anion Gap 8 (5-15); Aspartate Aminotransferase 31 U/L (13-40); BUN/Creatinine Ratio 16.5 (10.0-20.0); Blood Urea Nitrogen 18 mg/dL (9-23); Carbon Dioxide 27 mmol/L (20-31); Cholesterol 126 mg/dL (< 200); HDL Cholesterol 43 mg/dL (40-59); LDL Cholesterol 69 mg/dL (< 100); Sodium 144 mmol/L (136-145); Triglycerides 109 mg/dL (< 150)
[2024-10-29 09:22] LABS: Alanine Aminotransferase 67 U/L (7-40); Alkaline Phosphatase 123 U/L (46-116); Bilirubin, Total 0.7 mg/dL (0.2-1.0); Calcium 10.5 mg/dL (8.7-10.4); Chloride 109 mmol/L (98-107); Glucose 116 mg/dL (74-106)
[2024-10-29 09:23] LABS: Folate (Folic Acid) 12.65 ng/mL (>5.38)
[2024-10-29 09:24] LABS: Free T4 (Free Thyroxine) 1.1 ng/dL (0.89-1.76)
[2024-10-29 10:23] LABS: Uric Acid 4.8 mg/dL (3.7-9.2)
== END | disposition home or self-care (01) ==
LOC: LAB 08:12
PROVIDERS: ATTEND Internal Medicine
DX: E61.2 Magnesium deficiency (principal); E79.0 Hyperuricemia without signs of inflammatory arthritis and tophaceous disease; D51.9 Vitamin B12 deficiency anemia, unspecified; E55.9 Vitamin D deficiency, unspecified; E78.49 Other hyperlipidemia; R73.09 Other abnormal glucose; R94.6 Abnormal results of thyroid function studies; R82.90 Unspecified abnormal findings in urine; R68.89 Other general symptoms and signs
CPT/HCPCS: 36415; 80053; 80061; 81001; 82306; 82607; 82746; 83036; 84439; 84550; 87086

== ENCOUNTER → 2025-01-03 | Outpatient (CLI) | payer OTHER | END | disposition home or self-care (01) | LOC: LAB 06:01 | PROVIDERS: ATTEND Urology | DX: C61 Malignant neoplasm of prostate (principal) | CPT/HCPCS: 87086; 87088; 87186 ==

== ENCOUNTER → 2025-01-04 | Outpatient (CLI) | payer OTHER ==
[2025-01-04 13:33] LABS: Urine Bacteria None Seen /hpf (None Seen)
[2025-01-04 13:48] LABS: Urine Blood TRACE /uL (Negative); Urine Clarity Clear (Clear); Urine Color Light-Yellow (Yellow); Urine Protein, UAD Negative (Negative); Urine Specific Gravity 1.011 (1.001-1.035); Urine Squamous Epithelial Cell FEW /hpf (<5); Urine Urobilinogen Normal (Negative); Urine WBC 50 /HPF (0-3); Urine pH 6.5 (5.0-9.0)
== END | disposition home or self-care (01) ==
LOC: LAB 13:30
PROVIDERS: ATTEND Urology
DX: C61 Malignant neoplasm of prostate (principal)
CPT/HCPCS: 81001; 87086

== ENCOUNTER → 2025-03-03 | Outpatient (CLI) | payer OTHER ==
[~2025-03-03] VITALS: Ht 185.4 cm; Wt 89.4 kg
[2025-03-03] MEDS: REGADENOSON 0.4 MG/5 ML SYRG IV ONE ×2 (11:44→11:48)
--- NOTE | 2025-03-03 14:53 | DVHSR ---
APPROVED REPORT Exam: Nuclear Stress Test BMI: 0 Stress Test Details HR Max Heart Rate (APMHR): 149.314879 bpm Target HR (85% APMHR): 126.153524 bpm BP ECG Stress ECG Conclusion lvef 65% inferior wall ischemia is noted LAD on ecg NM EXAM: Myocardial Perfusion REST/STRESS Imaging Protocol: Rest Tc-99m/Stress Tc-99m 1 day Resting Data Rest SPECT myocardial perfusion imaging was performed in supine position 60 minutes following the int ravenous injection of 14.2 mCi of Tc-99m Sestamibi. Time of rest injection: 10:30 Date: 03/03/2025 Time of rest imagin:30 Date: 03/03/2025 Administration Route: IV Administration Site: Right Hand Pharmacologic Stress Pharmacologic stress test was performed by injecting Regadenoson 0.4 mg IV push followed by the intra venous injection of 32.5 mCi of Tc-99m Sestamibi. Time of stress injection: 11:45 Date: 03/03/2025 Time of stress imagin:30 Date: 03/03/2025 Administration Route: IV Administration Site: Right Hand Gated Stress SPECT was performed 45 minutes after stress injection. The images were gated to evaluate regional wall motion and calculate left ventricular ejection fracti on. Stress only was performed in the Supine position. Nuclear Conclusion Nuclear Findings: positive for ischemia lvef 65% inferior wall ischemia is noted LAD on ecg
== END | disposition home or self-care (01) ==
LOC: XYW 10:02
PROVIDERS: ATTEND Student in an Organized Health Care Education/Training Program
DX: I25.110 Atherosclerotic heart disease of native coronary artery with unstable angina pectoris (principal); R06.02 Shortness of breath; R94.31 Abnormal electrocardiogram [ECG] [EKG]
CPT/HCPCS: 78452; 93017; A9500; J2785

== ENCOUNTER → 2025-04-04 | Outpatient (CLI) | payer OTHER ==
[~2025-04-04] VITALS: Ht 182.9 cm; Wt 88.5 kg
[~2025-04-04] MED LIST changes: +ATOR40TA52 PO; +CLOP75TA70 PO; +HYDR-4902 PO; +NAP500T GT; +NAP500T PO; +TAMS0.4C39 PO; +mitoMYcin 40 MG in STERILE WATER 80 ML IS ONE
== END | disposition home or self-care (01) ==
LOC: LAB 12:38 → EDSTATUS 04-05 13:15
PROVIDERS: ATTEND Urology
DX: C67.9 Malignant neoplasm of bladder, unspecified (principal); Z53.8 Procedure and treatment not carried out for other reasons
CPT/HCPCS: J9280

== ENCOUNTER 2025-04-06 07:08 | Day surgery (SDC) | payer OTHER ==
[2025-04-05 11:25] LABS: Urine Bacteria None Seen /hpf (None Seen)
[2025-04-05 11:30] LABS: Basophils # (auto) 0 10 ^3/uL (0-0.2); Basophils % (auto) 0.4 % (0.0-2.0); Eosinophils # (auto) 0.2 10 ^3/uL (0-0.8); Eosinophils % (auto) 2.4 % (0.0-7.0); Hematocrit 47.2 % (41.0-53.0); Hemoglobin 16.2 g/dL (13.5-17.5); Lymphocytes # (auto) 1.6 10 ^3/uL (0.4-5.4); Mean Corpuscular Hemoglobin 30.5 pg (28.0-32.0); Mean Corpuscular Hgb Conc. 34.3 g/dL (32.0-36.0); Mean Corpuscular Volume 88.8 fL (80.0-100.0); Monocytes # (auto) 0.8 10 ^3/uL (0-1.3); Monocytes % (auto) 9.6 % (0.0-12.0); Neutrophils # (auto) 5.5 10 ^3/uL (1.6-8.6); Neutrophils % (auto) 67.6 % (37.0-80.0); Nucleated Red Blood Cells % 0.2 %; Platelet Count (auto) 198 10^3/uL (140-450); Red Blood Cells 5.31 10^6/uL (4.5-5.90); Red Cell Distribution Width 14.5 % (11.8-14.3); White Blood Cell 8.1 10^3/uL (4.4-10.8)
[2025-04-05 11:34] LABS: Urine Blood Negative /uL (Negative); Urine Clarity Clear (Clear); Urine Color Light-Yellow (Yellow); Urine Protein, UAD Negative (Negative); Urine Squamous Epithelial Cell FEW /hpf (<5); Urine Urobilinogen Normal (Negative); Urine WBC 2 /HPF (0-3); Urine pH 5.5 (5.0-9.0)
[2025-04-05 11:49] LABS: INR 0.96 (0.9-1.15); Partial Thromboplastin Time 25.1 SEC (24.5-34.5); Prothrombin Time 10.2 sec (9.3-11.8)
[2025-04-05 11:53] LABS: Alanine Aminotransferase 38 U/L (7-40); Anion Gap 9 (5-15); Aspartate Aminotransferase 22 U/L (<34); BUN/Creatinine Ratio 16.5 (10.0-20.0); Bilirubin, Total 0.6 mg/dL (0.2-1.0); Blood Urea Nitrogen 18 mg/dL (9-23); Carbon Dioxide 27 mmol/L (20-31); Potassium 4.2 mmol/L (3.5-5.1); Sodium 145 mmol/L (136-145); Total Protein 7.1 g/dL (5.7-8.2)
[2025-04-05 11:54] LABS: Albumin 4.9 g/dL (3.2-4.8); Alkaline Phosphatase 119 U/L (46-116); Calcium 10.8 mg/dL (8.7-10.4); Chloride 109 mmol/L (98-107); Glucose 68 mg/dL (74-106)
[~2025-04-06] VITALS: Ht 185.4 cm; Wt 88.5 kg
[2025-04-06] VITALS (8 sets, daily range): BP systolic 106–131; BP diastolic 60–69; PULSE 61–68; RESP 14; TEMP 97.9; O2SAT 94–95
[~2025-04-06 07:08] MED LIST changes: -ACET500T58 PO; -ATOR40TA52 PO; -HYDR-4902 PO; -LEVO500T91 PO; -NAP500T PO; -TAMS0.4C39 PO; -TICA1TAB PO; -mitoMYcin 40 MG in STERILE WATER 80 ML IS ONE
[2025-04-06] MEDS: IODIXANOL 320MG/ML 100ML BTL IV ONE ×2 (12:11→12:17)
[2025-04-06] MEDS: LIDOCAINE 2%HCL (LOCAL ANESTH.) INJ 20ML MDV ONE (12:11)
[2025-04-06] MEDS: HEPARIN IN NS 1000Units/500mL 1,500 ML ONE (12:12)
[2025-04-06] MEDS: VERAPAMIL 2.5MG/ML INJ 2ML VIAL IV ONE (12:13)
[2025-04-06] MEDS: HEPARIN SODIUM (PORCINE) 5000 UNITS/ML 1ML VIAL ONE (12:13)
[2025-04-06] MEDS: ANGIOMAX 250 MG VIAL IV ONE (12:13)
[2025-04-06] MEDS: fentaNYL CITRATE 100 MCG/2 ML VL ONE (12:15)
[2025-04-06] MEDS: MIDAZOLAM HCL 2MG/2ML 2ml VIAL (1mg/ml) ONE (12:16)
[2025-04-06] MEDS: SODIUM CHL 0.9% 0 ML ONE (12:51)
--- NOTE | 2025-04-06 13:06 | DVHOP2 ---
Operative Report - 2 Report Details Date: 04/06/25 Preop Diagnosis: CAD Postop Diagnosis: Normal coronaries. Normal ejection fraction. Normal end-diastolic pressures at rest. Surgeon: Radha Estrella MD Anesthesiologist: Conscious sedation Anesthesia: Mac, Local Consent: The patient was informed of the risks and benefits of the procedure. These include but are not limited to complications of anesthesia, postoperative infection, incomplete relief of symptoms, recurrence of symptoms, damage to blood vessels, nerves and tendons, deep venous thrombosis, pulmonary embolism and possible need for repeat surgery in the future. Complications: No complications Findings: Normal coronaries. No CAD. Indications for Surgery: Chest pain. Abnormal stress test. Name of Procedure Performed Left heart catheterization. Bilateral cine coronary angiography. Left ventriculography. Procedure Details Procedure Details: Prior local anesthesia with 2% lidocaine to the right wrist and full informed consent obtained the patient was prepped and draped in usual fashion followed by placement of a six Occitan sheath into the radial artery through which six Occitan Blayne catheter was used to cannulate both right and left coronary ostia and ve ntriculography without complications. Hemodynamics aortic blood pressure was 110/70 end-diastolic pressure was 12. No gradient across the aortic valve on pullback. Coronary anatomy: The RCA is a large vessel it is nondominant. No stenosis in his proximal mid or distal segments. Left main is large and normal. Left anterior descending is a large vessel it is normal in its proximal mid and distal segments. The circumflex is a large vessel it is dominant. It is normal in its proximal and mid section. The marginals are normal. PDA and posterolateral branches are normal. Ventriculography in the ACOSTA projection shows an EF of 60% no significant anomaly present. Impression: Normal left ventricular end-diastolic pressure at rest. Normal ejection fraction. No CAD. Recommendations: Medical therapy is warranted continue risk factor modification. Condition Good Disposition Home Date of Service: Apr 06, 2025 Billing Provider: RADHA ESTRELLA Sr., MD Cardiology Common Codes: 04881-QRULJFL INP/OBS CARE (High) Cardiology Procedure Codes: 11331-BSBN HEART CATH W/INTRA INJ RADHA ESTRELLA Sr., MD Apr 06, 2025 13:06
== END 2025-04-06 15:16 | disposition home or self-care (01) ==
LOC: CATH 07:08
PROVIDERS: ATTEND Internal Medicine
DX: R94.39 Abnormal result of other cardiovascular function study (principal); J44.9 Chronic obstructive pulmonary disease, unspecified; F17.210 Nicotine dependence, cigarettes, uncomplicated; Z95.5 Presence of coronary angioplasty implant and graft; Z79.01 Long term (current) use of anticoagulants
CPT/HCPCS: 36415; 80053; 81001; 85025; 85610; 85730; 93458; C1887; C1894; J1644; J2250; J3010; Q9967; 99152

== ENCOUNTER → 2025-04-19 | Day surgery (SDC) | payer OTHER ==
[2025-04-18 14:15] LABS: Hematocrit 47.8 % (41.0-53.0); Hemoglobin 16.5 g/dL (13.5-17.5); Mean Corpuscular Hemoglobin 30.9 pg (28.0-32.0); Mean Corpuscular Volume 89.5 fL (80.0-100.0); Nucleated Red Blood Cells % 0.1 %
[2025-04-18 14:18] LABS: Urine Protein, UAD Negative (Negative)
[2025-04-18 14:26] LABS: INR 0.97 (0.9-1.15); Partial Thromboplastin Time 24.2 SEC (24.5-34.5); Prothrombin Time 10.3 sec (9.3-11.8)
[2025-04-18 14:34] LABS: Alkaline Phosphatase 113 U/L (46-116)
[2025-04-18 14:35] LABS: Anion Gap 8 (5-15); BUN/Creatinine Ratio 14.2 (10.0-20.0); Bilirubin, Total 0.7 mg/dL (0.2-1.0); Blood Urea Nitrogen 17 mg/dL (9-23); Carbon Dioxide 26 mmol/L (20-31); Potassium 4.0 mmol/L (3.5-5.1); Sodium 142 mmol/L (136-145); Total Protein 7.1 g/dL (5.7-8.2)
[2025-04-18 14:36] LABS: Alanine Aminotransferase 53 U/L (7-40); Albumin 4.9 g/dL (3.2-4.8); Calcium 11.1 mg/dL (8.7-10.4); Chloride 108 mmol/L (98-107); Glucose 139 mg/dL (74-106)
[~2025-04-19] VITALS: Ht 185.4 cm; Wt 88.5 kg
[~2025-04-19] MED LIST changes: +ATOR40TA52 PO; +CIPROFLOXACIN 400MG/200ML 200 ML IV ONE; +ETOMIDATE (2MG/ML) 10ML VIAL IV ONE; +HYDROmorphone HCL 2 MG/ML VL/or syr IV PRN; +MIDAZOLAM HCL 2MG/2ML 2ml VIAL (1mg/ml) IV PRN; +MIDAZOLAM HCL 2MG/2ML 2ml VIAL (1mg/ml) ONE; +MORPHINE SULFATE 4 MG/ML SYR/VIAL IV PRN; +NAP500T PO; +ONDANSETRON HCL 4 MG/2 ML VIAL IV ONE; +PROPOFOL 10 MG/ML 20 ML IV ONE; +TAMS0.4C39 PO; +fentaNYL CITRATE 100 MCG/2 ML VL ONE; +hydrALAZINE HCL 20 MG/ML VL IV PRN; +mitoMYcin 40 MG in STERILE WATER 80 ML IS ONE
[2025-04-19 09:47] VITALS: TEMP 98.6
[2025-04-19 12:15] VITALS: PULSE 69; RESP 12; O2SAT 95
--- NOTE | 2025-04-19 12:18 | DVHNC2 ---
Procedure - OPERATIVE REPORT Pre-op. Diagnosis: Bladder tumor/mass Post-op. Diagnosis: Urethral stricture Bladder stones Bladder tumors Operation: Transurethral resection of bladder tumor Intravesical instillation of Mitomycin C Urethral dilation Anesthesia: General Indications: Patient has recurrent bladder tumors/mass on recent ultrasound Indications, risks, complications, alternatives and benefits of transurethral resection of bladder tumor(s) are discusse with the patient. All questions were encouraged and answered. Patient is aware of risks/complications including but not limited to infection, bleeding, bladder injury requiring additional procedures, urinary incontinence and possible need for additional procedures. Patient consented to proceed. Details of Procedure: Patient is taken to the operating room and underwent appropriate anesthesia. After positioning in lithotomy, area of the genitalia is prepped and draped in usual sterile fashion. Resecting element on the resectoscope with 30 degree lens is used to access the bladder and remove the identified bladder tumors. Proximal urethral stricture is found and dilated with the resectoscope. There are bladder stones embedded on the prior tumor resection site. Stones are removed with Band Electrode. NS irrigation is used with bipolar cautery unit for hemostasis. The resecting element and resectoscope are removed in entirety. [address] catheter is inserted and Mitomycin C 40 mg in 80 ml Sterile water instillation is performed. Specimens: Bladder tumors on left trigone involving the left ureteral orifice Bladder stones remeoved Complications: None Findings: Notes: Unclamp Ward catheter after 30 minutes of instillation of chemotherapeutic agent. YANCI GOFF MD Apr 19, 2025 12:18
--- NOTE | 2025-04-19 12:20 | DVHDS2 ---
New Physician D'charge PN Admitting Diagnosis Admitting Diagnosis Bladder tumor Discharge Diagnosis Urethral stricture Bladder stone Bladder tumor Operations or Procedures Trans urethral resection of bladder tumor Bladder stone removal Urethral dilation Intravesical mitomycin C instillation Reason(s) For Hospitalization Surgery Treatment Plan Discharge Condition of Discharge Good Disposition Home Discharge Instructions Diet: Regular Activity: Light activity Activity comment: Ward care Medications: Given Follow Up Care Follow Up/Referral: Return to clinic in three days for voiding trial Discharge Statement: "Patient was advised to return to the ER or call 911 if any headaches, dizziness, shortness of breath, chest pain, abdominal pain, bleeding, fevers, or worsening of medical condition. Patient was counseled about treatment plan, medications, possible side effects, patientverbalized understanding. All questions were answered to the best of my ability. This discharge took greater then 30 minutes in planning, reviewing documentation, counseling the patient, and discussing with other team members." YANCI GOFF MD Apr 19, 2025 12:20
[2025-04-19 14:00] VITALS: BP 145/53; PULSE 65; RESP 14; O2SAT 95
== END | disposition home or self-care (01) ==
LOC: SUR 09:40
PROVIDERS: ATTEND Urology
DX: N21.0 Calculus in bladder (principal); C67.0 Malignant neoplasm of trigone of bladder; N32.89 Other specified disorders of bladder; N35.919 Unspecified urethral stricture, male, unspecified site; I10 Essential (primary) hypertension; I25.10 Atherosclerotic heart disease of native coronary artery without angina pectoris; J44.9 Chronic obstructive pulmonary disease, unspecified; F17.210 Nicotine dependence, cigarettes, uncomplicated; I25.119 Atherosclerotic heart disease of native coronary artery with unspecified angina pectoris; Z79.899 Other long term (current) drug therapy; Z95.5 Presence of coronary angioplasty implant and graft; Z98.890 Other specified postprocedural states; Z80.8 Family history of malignant neoplasm of other organs or systems
CPT/HCPCS: 36415; 51720; 52234; 80053; 81001; 85025; 85610; 85730; 87086; 88305; 88342; A4315; A4344; J0744; J1100; J2250; J2704; J3010; J9280

== ENCOUNTER 2025-04-28 15:54 | Inpatient (IN) | payer OTHER ==
[~2025-04-28] VITALS: Ht 185.4 cm; Wt 92.4 kg
[~2025-04-28 15:54] MED LIST changes: -ATOR40TA52 PO; -CIPROFLOXACIN 400MG/200ML 200 ML IV ONE; -ETOMIDATE (2MG/ML) 10ML VIAL IV ONE; -HYDROmorphone HCL 2 MG/ML VL/or syr IV PRN; -MIDAZOLAM HCL 2MG/2ML 2ml VIAL (1mg/ml) IV PRN; -MIDAZOLAM HCL 2MG/2ML 2ml VIAL (1mg/ml) ONE; -MORPHINE SULFATE 4 MG/ML SYR/VIAL IV PRN; -NAP500T PO; -ONDANSETRON HCL 4 MG/2 ML VIAL IV ONE; -PROPOFOL 10 MG/ML 20 ML IV ONE; -TAMS0.4C39 PO; -fentaNYL CITRATE 100 MCG/2 ML VL ONE; -hydrALAZINE HCL 20 MG/ML VL IV PRN; -mitoMYcin 40 MG in STERILE WATER 80 ML IS ONE
--- NOTE | 2025-04-28 16:31 | ED.PDOC ---
GI ASSESSMENT HPI Comments 69-year-old male presents with a chief complaint of abdominal pain x onset last night with associated nausea, vomiting, and diarrhea. Patient states that his pain is localized diffusely, nonradiating, nonexertional, describes as aching, and rates his pain a 7/10. Patient mentions that he ate a sandwich last night then had onset of symptoms. Patient reports that potentially it was spoiled. However, patient mentions that he has an extensive history of Bowel Cancer, Colon Cancer, and a bowel resection. No other symptoms or modifying factors present at this time. Vital signs were stable. Chief Complaint: Abdominal Pain Time Seen by MD: 16:25 Primary Care Provider: IBETH Reviewed Notes: Nurses Notes, Medications, Allergies Allergies: Coded Allergies: NO KNOWN ALLERGIES (Unverified , 03/30/20) Home Meds Reported Medications Clopidogrel Bisulfate (CLOPIDOGREL) 75 Mg Tab, 75 MG PO DAILY, TAB 04/04/25 Naproxen (NAPROSYN TABLET) 500 Mg Tb, 500 MG GT DAILYP PRN for prn, TAB 04/04/25 Ezetimibe (Zetia) 10 Mg Tab, 10 MG PO DAILY, TAB 02/24/24 Atorvastatin Calcium (Lipitor) 40 Mg Tab, 1 TAB PO QPM, #90 TAB 1 Refill 03/31/20 Information Source: Patient Mode of Arrival: Ambulatory Timing: Hours Duration: Since onset Prehospital treatment: None Quality: Aching, Cramping, Sharp Vomitus: Food Particles Stool: Watery, Brown Severity: Moderate Recent: Possible spoiled food Recent Hx of: Abdominal Surgery Pain Location: Diffuse Associated sign and symptoms: Nausea, Vomiting, Diarrhea, Abdominal Pain Past Medical History PAST MEDICAL HISTORY: CAD, Cancer, Kidney Stones, DC Surgical History: PTCA Surgical History (Other): Bowel resection Family History Family History: Unknown Social History Smoker: Cigarettes Alcohol: Denies ETOH Use Drugs: Denies Drug Use Lives In: Home Constitutional: denies: chills, diaphoresis, fatigue, fever, malaise, sweats, weakness, others EENTM: denies: blurred vision, double vision, ear bleeding, ear discharge, ear drainage, ear pain, ear ringing, eye pain, eye redness, hearing loss, mouth pain, mouth swelling, nasal discharge, nose bleeding, nose congestion, nose pain, photophobia, tearing, throat pain, throat swelling, voice changes, others Respiratory: denies: cough, hemoptysis, orthopnea, SOB at rest, shortness of breath, SOB with excertion, stridor, wheezing, others Cardiovascular: denies: chest pain, dizzy spells, diaphoresis, Dyspnea on exertion, edema, irregular heart beat, left arm pain, lightheadedness, palpitations, PND, syncope, others Gastrointestinal: reports: abdominal pain, diarrhea, nausea, vomiting; denies: abdomen distended, blood streaked bowels, constipated, dysphagia, difficulty swallowing, hematemesis, melena, poor appetite, poor fluid intake, rectal bleeding, rectal pain, others Genitourinary: denies: burning, dysuria, flank pain, frequency, hematuria, incontinence, penile discharge, penile sore, pain, testicle pain, testicle swelling, urgency, others Neurological: denies: dizziness, fainting, headache, left sided numbness, left sided weakness, numbness, paresthesia, pre-existing deficit, right sided numbness, right sided weakness, seizure, speech problems, tingling, tremors, weakness, others Musculoskeletal: denies: back pain, gout, joint pain, joint swelling, muscle pain, muscle stiffness, neck pain, others Integumetry: denies: bruises, change in color, change in hair/nails, dryness, laceration, lesions, lumps, rash, wounds, others Allergic/Immunocompromised: denies: Difficulty Healing, Frequent Infections, Hives, Itching, others Hematologic/Lymphatic: denies: anemia, blood clots, easy bleeding, easy bruising, swollen glands, others Endocrine: denies: excessive hunger, excessive sweating, excessive thirst, excessive urination, flushing, intolerance to cold, intolerance to heat, unexplained weight gain, unexplained weight loss, others Psychiatric: denies: anxiety, bipolar disorder, depression, hopeless, panic disorder, schizophrenia, sleepless, suicidal, others All Other Systems: Reviewed and Negative Physical Exam General Appearance: Moderate Distress (Moderate distress due to belly pain concerns. Patient was pale and appears to be in poor overall health.), Normal HEENT: Normal ENT Inspection, Pharynx Normal, TMs Normal Neck: Full Range of Motion, Non-Tender, Normal, Normal Inspection Respiratory: Chest Non-Tender, Lungs Clear, No Accessory Muscle Use, No Respiratory Distress, Normal Breath Sounds Cardiovascular: No Edema, No JVD, No Murmur, No Gallop, Normal Peripheral Pulses, Regular Rate/Rhythm Breast Exam: Deferred Gastrointestinal: Tenderness (Diffuse tenderness to palpation throughout the epigastric region extending into the lower abdomen. Reduced bowel sounds noted. No pulsatile masses. Abdomen was mildly rigid.) Genitalia: Deferred Pelvic: Deferred Rectal: Deferred Extremities: No calf tenderness, Normal capillary refill, Normal inspection, Normal range of motion, Non-tender, No pedal edema Musculoskeletal : Apperance: Normal Neurologic: Alert, No Motor Deficits, Normal Affect, Normal Mood, No Sensory Deficits Cerebellar Function: Normal Reflexes: Normal Skin: Dry, Normal Color, Warm Lymphatic: No Adenopathy Was a procedure done? Was a procedure done?: No GI differential Dx Differential Diagnosis: Appendicitis, Bowel Obstruction, Cholangitis, Cholecystitis, Constipation, Diverticular disease, Gastritis/PUD, Gastroenteritis, Pancreatitis X-Ray, Labs, Meds, VS Vital Signs Date Time Temp Pulse Resp B/P (MAP) Pulse Ox O2 Delivery O2 Flow Rate FiO2 04/28/25 20:30 69 17 142/70 04/28/25 20:00 Room Air* 0 21 04/28/25 20:00 98.0 68 24 141/73 (95) 95 98.0 04/28/25 19:30 71 20 136/64 04/28/25 18:55 75 19 133/63 (86) 89 04/28/25 17:27 72 20 95 Room Air* 0 21 04/28/25 17:05 96 18 112/80 04/28/25 16:52 97.7 89 16 112/80 (91) 89 97.7 04/28/25 16:52 89 16 96 Room Air 04/28/25 16:08 97.7 97 18 128/58 (81) 95 97.7 Lab Test 04/28/25 17:30 04/28/25 16:33 Range/Units Troponin I High Sensitivity < 3 L < 3 L </=54 ng/L White Blood Count 14.7 H 4.4-10.8 10^3/uL Red Blood Count 5.76 4.5-5.90 10^6/uL Hemoglobin 17.6 H 13.5-17.5 g/dL Hematocrit 54.5 H 41.0-53.0 % Mean Corpuscular Volume 94.5 80.0-100.0 fL Mean Corpuscular Hemoglobin 30.5 28.0-32.0 pg Mean Corpuscular Hemoglobin Concent 32.3 32.0-36.0 g/dL Red Cell Distribution Width 16.0 H 11.8-14.3 % Platelet Count 224 140-450 10^3/uL Mean Platelet Volume 8.3 6.9-10.8 fL Neutrophils (%) (Auto) 88.0 H 37.0-80.0 % Lymphocytes (%) (Auto) 6.5 L 10.0-50.0 % Monocytes (%) (Auto) 5.2 0.0-12.0 % Eosinophils (%) (Auto) 0.2 0.0-7.0 % Basophils (%) (Auto) 0.1 0.0-2.0 % Neutrophils # (Auto) 13.0 H 1.6-8.6 10 ^3/uL Lymphocytes # (Auto) 1.0 0.4-5.4 10 ^3/uL Monocytes # (Auto) 0.8 0-1.3 10 ^3/uL Eosinophils # (Auto) 0 0-0.8 10 ^3/uL Basophils # (Auto) 0 0-0.2 10 ^3/uL Nucleated Red Blood Cells 0.1 % Sodium Level 141 136-145 mmol/L Potassium Level 4.0 3.5-5.1 mmol/L Chloride Level 104 98-107 mmol/L Carbon Dioxide Level 25 20-31 mmol/L Anion Gap 12 5-15 Blood Urea Nitrogen 25 H 9-23 mg/dL Creatinine 1.16 0.700-1.30 mg/dL Glomerular Filtration Rate Calc 67 >90 mL/min BUN/Creatinine Ratio 21.6 H 10.0-20.0 Serum Glucose 137 H 74-106 mg/dL Calcium Level 10.1 8.7-10.4 mg/dL Lipase 26 12-53 U/L Current Medications Medications (Trade) Dose Ordered Sig/Jon Route Start Time Stop Time Status Last Admin Metoclopramide HCl (Reglan Injection) 10 mg ONCE ONCE IV 04/28/25 16:15 04/28/25 16:16 DC 04/28/25 17:04 Hydromorphone HCl (Dilaudid Injection) 0.5 mg ONCE ONCE IV 04/28/25 16:15 7/17/25 16:16 DC 04/28/25 17:05 Hydromorphone HCl (Dilaudid Injection) 0.5 mg ONCE ONCE IV 04/28/25 20:15 04/28/25 20:16 DC 04/28/25 20:30 Metoclopramide HCl (Reglan Injection) 10 mg ONCE ONCE IV 04/28/25 20:15 04/28/25 20:16 DC 04/28/25 20:28 X-Ray, Labs, Meds, VS Comment All studies performed the ED were evaluated by me personally. Serum laborat ories revealed a mild leukocytosis and what appears to be a macrocytic anemia. Imaging studies confirmed a fatty liver and more importantly, a small bowel obstruction. Patient will be admitted for pain management and possible surgical evaluation. Time of 1ST Reevaluation: 21:27 Reevaluation 1ST: Improved Consultation: PCP, Surgery Patient Education/Counseling: Diagnosis, Treatment, Need For Follow Up Family Education/Counseling: Diagnosis, Treatment, No Family Present SEPSIS Sepsis Screen Date sepsis recognized/suspect: Apr 28, 2025 Time Sepsis recognized/suspect: 1602 Recent Procedure: No On Antibiotic Therapy: No Respiratory Rate >20: No Heart Rate >90: Yes Temp<36 C (96.8 F) or >38.3 C: No SBP <90 or MAP <65 mmHG: No New Acute Mental Status Change: No Is the patient on CPAP, BIPAP,: No Physician Orders Troponin-I Hs (04/29/25 00:00) Troponin-I Hs (04/29/25 03:00) Urinalysis (04/28/25 16:10) Ct Ab Pel With Iv Con Only (04/28/25 16:10) Heplock Iv (04/28/25 16:10) Vital Signs Date Time Temp Pulse Resp B/P (MAP) Pulse Ox O2 Delivery O2 Flow Rate FiO2 04/28/25 20:30 69 17 142/70 04/28/25 20:00 Room Air* 0 21 04/28/25 20:00 98.0 68 24 141/73 (95) 95 98.0 04/28/25 19:30 71 20 136/64 04/28/25 18:55 75 19 133/63 (86) 89 04/28/25 17:27 72 20 95 Room Air* 0 21 04/28/25 17:05 96 18 112/80 04/28/25 16:52 97.7 89 16 112/80 (91) 89 97.7 04/28/25 16:52 89 16 96 Room Air 04/28/25 16:08 97.7 97 18 128/58 (81) 95 97.7 Laboratory Tests Test 04/28/25 16:33 White Blood Count 14.7 10^3/uL (4.4-10.8) H Medications Medications Dose Ordered Sig/Jon Route Start Time Stop Time Status Last Admin Dose Admin Hydromorphone HCl 0.5 mg ONCE ONCE IV 04/28/25 16:15 04/28/25 16:16 DC 04/28/25 17:05 Hydromorphone HCl 0.5 mg ONCE ONCE IV 04/28/25 20:15 04/28/25 20:16 DC 04/28/25 20:30 Metoclopramide HCl 10 mg ONCE ONCE IV 04/28/25 16:15 04/28/25 16:16 DC 04/28/25 17:04 Metoclopramide HCl 10 mg ONCE ONCE IV 04/28/25 20:15 04/28/25 20:16 DC 04/28/25 20:28 Departure 1 Departure Time of Disposition: 21:28 Impression: Primary Impression: Small bowel obstruction Additional Impressions: Hepatic steatosis Leukocytosis Disposition: 09 ADMITTED INPATIENT Condition: Fair Discharged With: Self Critical Care Note Critical Care Time?: No Stability Stability form required: No Heart Score Heart Score: Heart Score Response (Comments) Value History N/A 0 EKG N/A 0 Age N/A 0 Risk Factors N/A 0 Troponin N/A 0 Total 0 I personally scribed for DIONI CHEUNG PAC ([email or web address]) on 04/28/25 at 16:31. Electronically submitted by Kei Pavon ([email or web address]). DIONI CHEUNG PAC Apr 28, 2025 16:31
[2025-04-28 16:52] LABS: Hematocrit 54.5 % (41.0-53.0); Hemoglobin 17.6 g/dL (13.5-17.5); Mean Corpuscular Hemoglobin 30.5 pg (28.0-32.0); Mean Corpuscular Volume 94.5 fL (80.0-100.0); Nucleated Red Blood Cells % 0.1 %
[2025-04-28] MEDS: METOCLOPRAMIDE HCL 5MG/ml INJ 2ml VIAL IV ONE ×2 (17:04→20:28)
[2025-04-28] MEDS: HYDROmorphone HCL 2 MG/ML VL/or syr IV ONE ×2 (17:05→20:30)
[2025-04-28 17:27] VITALS: PULSE 72; RESP 20; O2SAT 95
[2025-04-28 18:38] LABS: Chloride 104 mmol/L (98-107); Potassium 4.0 mmol/L (3.5-5.1); Sodium 141 mmol/L (136-145)
[2025-04-28 18:39] LABS: Anion Gap 12 (5-15); Calcium 10.1 mg/dL (8.7-10.4); Carbon Dioxide 25 mmol/L (20-31)
[2025-04-28 18:44] LABS: BUN/Creatinine Ratio 21.6 (10.0-20.0); Lipase 26 U/L (12-53)
[2025-04-28 18:57] LABS: Blood Urea Nitrogen 25 mg/dL (9-23); Glucose 137 mg/dL (74-106)
[2025-04-28] MEDS: IOHEXOL 300 MG/ML 100ML BOTTLE IJ ONE (20:44)
--- NOTE | 2025-04-28 21:17 | DVH ---
Exam: CT CT AB PEL WITH IV CON ONLY History: Abdominal pain Comparison Study: CT CT AB PEL WITH IV CON ONLY on DOS: 10/08/24 TECHNIQUE: A digital sack sorter image was obtained. During the uneventful, intravenous administration of c ontrast material, multislice data acquisition was obtained through the abdomen and pelvis. The data s et was subsequently reconstructed into axial images. Images reviewed on a wrist examination is an exa mination of axial and multiplanar reformations using a variety of window levels and settings. RADIATION DOSE: DLP 696.69 mGy.cm; CTDI vol 11.16 mGy. Findings: Lungs: Bibasilar atelectasis. Heart: No cardiomegaly or pericardial effusion. Moderate to severe coronary atherosclerosis. Liver: Fatty infiltration of the liver. Gallbladder: Unremarkable. Spleen: Unremarkable Pancreas: Unremarkable Adrenals: 1.9 x 0.8 cm right adrenal nodule. Kidneys: Left renal cysts. Mild left hydroureteronephrosis. No definite evidence of ureterolithiasis . GI tract: Multiple dilated loops of small bowel with transition point in the right lower quadrant at the level of the distal ileum (axial image 75). Postsurgical changes of the bowel. : Unremarkable. Vasculature: Mild aortoiliac atherosclerosis. Lymphadenopathy: Absent Peritoneum: No ascites or pneumoperitoneum Musculoskeletal: Mild multilevel degenerative changes of the thoracolumbar spine. Bilateral pars defe cts of L5. Soft tissues: Unremarkable Impression: 1. Small bowel obstruction with transition point in the right lower quadrant at the distal ileum. 2. Hepatic steatosis. 3. Mild left hydroureteronephrosis without definite evidence of ureterolithiasis. Critical Result: Bowel obstruction Findings discussed with Dr. Castro, at 04/28/2025 09:14 PM, and acknowledged receipt and understanding of the findings.
[2025-04-28 22:12] LABS: Urine Protein, UAD 1+ (Negative)
[2025-04-28] MEDS ORDERED: ACETAMINOPHEN 325 MG TAB PO PRN (22:15)
[2025-04-28] MEDS ORDERED: HYDROcodone-ACET 5/325MG TAB PO PRN (22:15)
[2025-04-28] MEDS ORDERED: MORPHINE SULFATE INJ 2 MG/ml SYRG IV PRN (22:15)
[2025-04-28] MEDS ORDERED: NITROGLYCERIN 0.4 MG SL TAB SL PRN (22:15)
--- NOTE | 2025-04-28 22:23 | DVHHP2 ---
History of Present Illness Reason for Visit: Small-bowel obstruction History of Present Illness The patient is a 69-year-old male with past medical history of Coronary artery disease, cancer, kidney stones, and VA who presented to [facility] ED with complaint of abdominal pain. Patient reports he has been experiencing localized abdominal pain, nonradiating, aching, rating 7/10 numeric scale, associated with nausea, vomiting, diarrhea, getting worse that prompted this visit. Patient was seen and evaluated in the ED, laboratory data shows WBC 14.7, platelets 224, sodium 141, potassium 4.0, BUN 25, creatinine 1.16, glucose 137, calcium 10.1, troponin < 3, lipase 26, blood pressure 144/60, heart rate 70, temperature 98.0 F, O2 saturation 94% on oxygen. Abdomen/pelvis CT revealing small bowel obstruction. Patient was started on IV antibiotic regimen Rocephin, please see medication orders section in the computer. On my assessment, patient denied chest pain, no headache, no dizziness, no shortness of breaths, no abdominal pain, nausea, or vomiting at this moment, no fever, no chills. Patient was admitted for further evaluation and medical management. Past Medical History CAD, Cancer, Kidney Stones, VA Past Surgical History PTCA, Bowel resection Family History Reviewed, noncontributory to the management of this case. Past Social History The patient lives at home, denies smoking, alcohol or illicit drugs abuse. Review of Systems Constitutional: No: Fever, Chills, Sweats, Weakness, Malaise, Other Eyes: No: Pain, Vision change, Conjunctivae inflammation, Eyelid inflammation, Other, Redness ENT: No: Ear pain, Ear discharge, Nose pain, Nose discharge, Nose congestion, Mouth pain, Mouth swelling, Throat pain, Throat swelling, Other Respiratory: No: Cough, Dry, Shortness of breath, SOB with excertion, Wheezing, Hemoptysis, Pleuritic Pain, Sputum, Wheezing, Other Cardiovascular: No: Chest Pain, Palpitations, Orthopnea, Paroxysmal Noc. Dyspnea, Edema, Lt Headedness, Other Gastrointestinal: Nausea, Vomiting, Abdominal Pain, Diarrhea; No: Constipation, Melena, Hematochezia, Other Genitourinary: No Dysuria, No Frequency, No Incontinence, No Hematuria, No Ret ention, No Other Musculoskeletal: No: other, neck pain, shoulder pain, arm pain, back pain, hand pain, leg pain, foot pain Skin: No: Rash, Lesions, Jaundice, Bruising, Other Neurological: No: Weakness, Numbness, Incoordination, Change in speech, Confusion, Seizures, Other Allergies: Coded Allergies: NO KNOWN ALLERGIES (Unverified , 03/30/20) Medications Current Medications Medications Dose Ordered Sig/Jon Route Start Time Stop Time Status Last Admin Dose Admin Ceftriaxone Sodium 50 ml @ 100 mls/hr DAILY@09 IV 04/29/25 09:00 UNV Sodium Chloride 1,000 ml @ 60 mls/hr [id number] IV 04/28/25 22:15 UNV Acetaminophen/ Hydrocodone Bitart 1 tab Q4HP PRN PO 04/28/25 22:15 UNV Ondansetron HCl 4 mg Q4HP PRN IV 04/28/25 22:15 UNV Acetaminophen 650 mg Q6HP PRN PO 04/28/25 22:15 UNV Morphine Sulfate 2 mg Q4HPRN PRN IV 04/28/25 22:15 UNV Nitroglycerin 0.4 mg Q5MINP PRN SL 04/28/25 22:15 UNV Morphine Sulfate 2 mg Q30M PRN IV 04/28/25 22:15 UNV Exam Vital Signs Vital Signs Date Time Temp Pulse Resp B/P (MAP) Pulse Ox O2 Delivery O2 Flow Rate FiO2 04/28/25 21:02 20 93 04/28/25 21:00 70 144/60 (88) 04/28/25 20:00 Room Air* 0 21 04/28/25 20:00 98.0 98.0 General Appearance: Alert, Oriented X3, Cooperative, No acute distress HEENT: Atraumatic, PERRLA, EOMI, Mucous membr. moist/pink Respiratory: Clear to auscultation, Normal air movement Cardiovascular: Regular rate, Normal S1, Normal S2, No murmurs Abdominal: Normal bowel sounds, Soft, No hepatospenomegaly, No masses, Other (Reports tenderness) Extremities: No clubbing, No cyanosis, No edema, Normal pulses, No tenderness/swelling Skin: No rashes, No breakdown, No significant lesion Neuro: Normal speech, Normal tone, Sensation intact, Cranial nerves 3-12 NL, Reflexes 2+, Other (Generalized weakness) Psych/Mental Status: Mental status NL, Mood NL Labs/Xrays Labs Test 04/28/25 21:42 04/28/25 17:30 04/28/25 16:33 Range/Units Urine Color Yellow Yellow Urine Clarity Turbid H Clear Urine pH 7.5 5.0-9.0 Urine Specific [place] 1.025 1.001-1.035 Urine Protein 1+ H Negative Urine Ketones Negative Negative Urine Blood 2+ H Negative /uL Urine Nitrite Negative Negative Urine Bilirubin Negative Negative Urine Urobilinogen Normal Negative mg/dL Urine Leukocyte Esterase Trace Negative /uL Urine RBC 45 0 - 3 /hpf Urine Microscopic WBC 20 H 0-3 /HPF Urine Squamous Epithelial Cells Few <5 /hpf Urine Bacteria None seen None Seen /hpf Urine Mucus Few None Seen Urine Glucose Normal Normal mg/dL Troponin I High Sensitivity < 3 L </=54 ng/L White Blood Count 14.7 H 4.4-10.8 10^3/uL Red Blood Count 5.76 4.5-5.90 10^6/uL Hemoglobin 17.6 H 13.5-17.5 g/dL Hematocrit 54.5 H 41.0-53.0 % Mean Corpuscular Volume 94.5 80.0-100.0 fL Mean Corpuscular Hemoglobin 30.5 28.0-32.0 pg Mean Corpuscular Hemoglobin Concent 32.3 32.0-36.0 g/dL Red Cell Distribution Width 16.0 H 11.8-14.3 % Platelet Count 224 140-450 10^3/uL Mean Platelet Volume 8.3 6.9-10.8 fL Neutrophils (%) (Auto) 88.0 H 37.0-80.0 % Lymphocytes (%) (Auto) 6.5 L 10.0-50.0 % Monocytes (%) (Auto) 5.2 0.0-12.0 % Eosinophils (%) (Auto) 0.2 0.0-7.0 % Basophils (%) (Auto) 0.1 0.0-2.0 % Neutrophils # (Auto) 13.0 H 1.6-8.6 10 ^3/uL Lymphocytes # (Auto) 1.0 0.4-5.4 10 ^3/uL Monocytes # (Auto) 0.8 0-1.3 10 ^3/uL Eosinophils # (Auto) 0 0-0.8 10 ^3/uL Basophils # (Auto) 0 0-0.2 10 ^3/uL Nucleated Red Blood Cells 0.1 % Sodium Level 141 136-145 mmol/L Potassium Level 4.0 3.5-5.1 mmol/L Chloride Level 104 98-107 mmol/L Carbon Dioxide Level 25 20-31 mmol/L Anion Gap 12 5-15 Blood Urea Nitrogen 25 H 9-23 mg/dL Creatinine 1.16 0.700-1.30 mg/dL Glomerular Filtration Rate Calc 67 >90 mL/min BUN/Creatinine Ratio 21.6 H 10.0-20.0 Serum Glucose 137 H 74-106 mg/dL Calcium Level 10.1 8.7-10.4 mg/dL Lipase 26 12-53 U/L PATIENT: ITZ WHITAKER ACCT: [id number] UNIT: [id number] : 1955 LOC: ER ROOM / BED: / AGE / SEX: 69 / M ADM STATUS: REG ER SERVICE 1610 ORDERING PHYSICIAN: DIONI CHEUNG PAC PROCEDURE(s): ABPLIV - CT AB PEL WITH IV CON ONLY REASON: Abdominal pain ORDER NUMBER(s): [id number], ACCESSION NUMBER(s): [id number] Exam: CT CT AB PEL WITH IV CON ONLY History: Abdominal pain Comparison Study: CT CT AB PEL WITH IV CON ONLY on DOS: 10/08/24 TECHNIQUE: A digital campaign analyst image was obtained. During the uneventful, intravenous administration of contrast material, multislice data acquisition was obtained through the abdomen and pelvis. The data set was subsequently reconstructed into axial images. Images reviewed on a wrist examination is an examination of axial and multiplanar reformations using a variety of window levels and settings. RADIATION DOSE: DLP 696.69 mGy.cm; CTDI vol 11.16 mGy. Findings: Lungs: Bibasilar atelectasis. Heart: No cardiomegaly or pericardial effusion. Moderate to severe coronary atherosclerosis. Liver: Fatty infiltration of the liver. Gallbladder: Unremarkable. Spleen: Unremarkable Pancreas: Unremarkable Adrenals: 1.9 x 0.8 cm right adrenal nodule. Kidneys: Left renal cysts. Mild left hydroureteronephrosis. No definite evidence of ureterolithiasis. GI tract: Multiple dilated loops of small bowel with transition point in the right lower quadrant at the level of the distal ileum (axial image 75). Postsurgical changes of the bowel. : Unremarkable. Vasculature: Mild aortoiliac atherosclerosis. Lymphadenopathy: Absent Peritoneum: No ascites or pneumoperitoneum Musculoskeletal: Mild multilevel degenerative changes of the thoracolumbar spine. Bilateral pars defects of L5. Soft tissues: Unremarkable Impression: 1. Small bowel obstruction with transition point in the right lower quadrant at the distal ileum. 2. Hepatic steatosis. 3. Mild left hydroureteronephrosis without definite evidence of ureterolithiasis. Critical Result: Bowel obstruction SEPSIS Sepsis Screen Date sepsis recognized/suspect: Apr 28, 2025 Time Sepsis recognized/suspect: 1999 Recent Procedure: Yes On Antibiotic Therapy: No Respiratory Rate >20: Yes Heart Rate >90: No Temp<36 C (96.8 F) or >38.3 C: No SBP <90 or MAP <65 mmHG: No New Acute Mental Status Change: No Is the patient on CPAP, BIPAP,: No Physician Orders Troponin-I Hs (04/29/25 00:00) Troponin-I Hs (04/29/25 03:00) Ct Ab Pel With Iv Con Only (04/28/25 16:10) Heplock Iv (04/28/25 16:10) Lactic Acid W/ Reflex Order (04/28/25 22:11) * Surgical Consult (04/28/25 ) Ceftriaxone 1gm/50ml D5w (Rocephin) (04/29/25 09:00) Ceftriaxone 1gm/50ml D5w (Rocephin) (04/28/25 22:15) Blood Culture (04/28/25 22:15) Admit (04/28/25 22:15) Allergies (04/28/25 22:15) Code Status (04/28/25 22:15) Sodium Chloride 0.9% (04/28/25 22:15) Oxygen Per Hour (04/28/25 22:15) Hydrocodone-Acet 5/325mg Tab ([place] 5/32 (04/28/25 22:15) Ondansetron Hcl (Zofran) (04/28/25 22:15) Complete Blood Count (04/29/25 04:00) Comprehensive Metabolic Panel (04/29/25 04:00) Condition: Serious (04/28/25 22:15) Acetaminophen Tablet (Tylenol Tablet) (04/28/25 22:15) Bedrest With Bathroom Privileg (04/28/25 22:15) Morphine Sulfate Injection (04/28/25 22:15) Sequential Compression Device (04/28/25 ) Nitroglycerin Sublingual (Ntrostat Subli (04/28/25 22:15) Morphine Sulfate Injection (04/28/25 22:15) Stat Ekg For Chest Pain (04/28/25 22:15) Notify Md Of Changes From Base (04/28/25 22:15) Color Room Attendant For 24 Hours (04/28/25 22:15) Emergency Dysrhythmia Protocol (04/28/25 22:15) Rhythm Strips Once Every Shift (04/28/25 22:15) Oxygen By Nasal Cannula (04/28/25 22:15) Ng To Lis (04/28/25 22:15) Npo Except For Medications (04/28/25 22:21) Vital Signs Date Time Temp Pulse Resp B/P (MAP) Pulse Ox O2 Delivery O2 Flow Rate FiO2 04/28/25 21:02 20 93 04/28/25 21:00 70 24 144/60 (88) 88 04/28/25 21:00 70 24 144/60 04/28/25 20:30 69 17 142/70 04/28/25 20:00 Room Air* 0 21 04/28/25 20:00 98.0 68 24 141/73 (95) 95 98.0 04/28/25 19:30 71 20 136/64 04/28/25 18:55 75 19 133/63 (86) 89 04/28/25 17:27 72 20 95 Room Air* 0 21 04/28/25 17:05 96 18 112/80 04/28/25 16:52 97.7 89 16 112/80 (91) 89 97.7 04/28/25 16:52 89 16 96 Room Air 04/28/25 16:08 97.7 97 18 128/58 (81) 95 97.7 Laboratory Tests Test 04/28/25 16:33 White Blood Count 14.7 10^3/uL (4.4-10.8) H Medications Medications Dose Ordered Sig/Jon Route Start Time Stop Time Status Last Admin Dose Admin Hydromorphone HCl 0.5 mg ONCE ONCE IV 04/28/25 16:15 04/28/25 16:16 DC 04/28/25 17:05 0.5 MG Hydromorphone HCl 0.5 mg ONCE ONCE IV 04/28/25 20:15 04/28/25 20:16 DC 04/28/25 20:30 0.5 MG Metoclopramide HCl 10 mg ONCE ONCE IV 04/28/25 16:15 04/28/25 16:16 DC 04/28/25 17:04 10 MG Metoclopramide HCl 10 mg ONCE ONCE IV 04/28/25 20:15 04/28/25 20:16 DC 04/28/25 20:28 10 MG Assessment/Plan Assessment/Plan Acute abdominal pain Small bowel obstruction Hepatic steatosis Leukocytosis, unspecified Generalized weakness Plan 1. Admit to telemetry units 2. Breathing treatment 3. Pain control management 4. IV antibiotic management 5. Management of fluids and electrolytes 6. Consultation for surgery 7. Diagnostic test abdomen/pelvis CT 8. DVT prophylaxis-on SCDs 9. Repeat labs CBC, CMP in a.m. 10. Home medication reviewed and reconciled 11. Continue with current medical management 12. Treatment plan discussed with patient and RN. Patient verbalized understanding. Plan discussed with: Patient, Other (RN) My Orders Orders - ELMER MONET DNP Procedure Category Date Status Time * Surgical Consult CONS 04/28/25 Transmitted Ceftriaxone 1gm/50ml PHA 04/29/25 Logged D5w (Rocephin) 09:00 Ceftriaxone 1gm/50ml PHA 04/28/25 Logged D5w (Rocephin) 22:15 Blood Culture KAT 04/28/25 Logged 22:15 Admit ADMIT 04/28/25 Transmitted 22:15 Allergies WERO 04/28/25 In Process 22:15 Code Status CODE 04/28/25 Transmitted 22:15 Sodium Chloride 0.9% PHA 04/28/25 Logged 22:15 Oxygen Per Hour RT 04/28/25 Transmitted 22:15 Hydrocodone-Acet PHA 04/28/25 Logged 5/325mg Tab ([facility] 22:15 Ondansetron Hcl PHA 04/28/25 Logged (Zofran) 22:15 Complete Blood Count LAB 04/29/25 Verified 04:00 Comprehensive LAB 04/29/25 Verified Metabolic Panel 04:00 Condition: Serious WERO 04/28/25 In Process 22:15 Acetaminophen Tablet [facility] 04/28/25 Logged (Tylenol Tablet) 22:15 Bedrest With Bathroom [facility] 04/28/25 In Process Privileg 22:15 Morphine Sulfate [facility] 04/28/25 Logged Injection 22:15 Sequential [facility] 04/28/25 In Process Compression Device Nitroglycerin [facility] 04/28/25 Logged Sublingual (Ntrostat 22:15 Morphine Sulfate [facility] 04/28/25 Logged Injection 22:15 Stat Ekg For Chest [facility] 04/28/25 In Process Pain 22:15 Notify Md Of Changes [facility] 04/28/25 In Process From Base 22:15 Color Room Attendant For [facility] 04/28/25 In Process 24 Hours 22:15 Emergency Dysrhythmia [facility] 04/28/25 In Process Protocol 22:15 Rhythm Strips Once [facility] 04/28/25 In Process Every Shift 22:15 Oxygen By Nasal 04/28/25 Transmitted Cannula 22:15 Ng To Lis [facility] 04/28/25 In Process 22:15 Npo Except For [facility] 04/28/25 Verified Medications 22:21 Problem List: (1) Acute abdominal pain (2) Small bowel obstruction (3) Hepatic steatosis (4) Leukocytosis, unspecified (5) Generalized weakness Date of Service: Apr 28, 2025 Billing Provider: ELMER MONET DNP Common Visit Codes: [id number] INP/OBS CARE (HIGH) ELMER MONET DNP Apr 28, 2025 22:23
[2025-04-28] MEDS: cefTRIAXone 1GM/50ML D5W 50 ML IV SCH (22:37)
[2025-04-28] MEDS: SODIUM CHLORIDE 0.9% 1,000 ML IV SCH (22:46)
[2025-04-28] MEDS: cefTRIAXone 1GM/50ML D5W 50 ML IV ONE (23:02)
[2025-04-28] MEDS: MORPHINE SULFATE INJ 2 MG/ml SYRG IV PRN (23:11)
[2025-04-28] MEDS: ONDANSETRON HCL 4 MG/2 ML VIAL IV PRN (23:11)
[2025-04-29] VITALS (8 sets, daily range): BP systolic 110–146; BP diastolic 50–94; PULSE 69–93; RESP 16–19; TEMP 97.2–98.5; O2SAT 90–97
[2025-04-29] MEDS ORDERED: ATOR40TA52 PO (01:02)
[2025-04-29] MEDS ORDERED: TAMS0.4C39 PO (01:02)
[2025-04-29] MEDS ORDERED: NAP500T PO (01:03)
[2025-04-29 07:56] LABS: Albumin 4.6 g/dL (3.2-4.8); Alkaline Phosphatase 108 U/L (46-116); Anion Gap 11 (5-15); BUN/Creatinine Ratio 22.0 (10.0-20.0); Bilirubin, Total 0.7 mg/dL (0.2-1.0); Blood Urea Nitrogen 22 mg/dL (9-23); Carbon Dioxide 26 mmol/L (20-31); Chloride 105 mmol/L (98-107); Potassium 3.7 mmol/L (3.5-5.1); Sodium 142 mmol/L (136-145); Total Protein 6.6 g/dL (5.7-8.2)
[2025-04-29 08:01] LABS: Alanine Aminotransferase 47 U/L (7-40); Calcium 10.6 mg/dL (8.7-10.4); Glucose 121 mg/dL (74-106)
[2025-04-29 11:49] LABS: Hematocrit 49.4 % (41.0-53.0); Hemoglobin 16.7 g/dL (13.5-17.5); Mean Corpuscular Hemoglobin 30.7 pg (28.0-32.0); Mean Corpuscular Volume 90.6 fL (80.0-100.0); Nucleated Red Blood Cells % 0.1 %
--- NOTE | 2025-04-29 16:35 | DVH ---
CHEST RADIOGRAPH Indication: NGT PLACEMENT Technique: Single frontal view of the chest was obtained COMPARISON: XY CHEST XRAY 1 VIEW on DOS: 11/12/23, CHEST PORTABLE on DOS: 03/30/20 FINDINGS: Lines and Tubes: Enteric catheter in satisfactory position. Lungs: Mild increased interstitial prominence Pleura: No effusion. No pneumothorax. Cardiomediastinal contours: Unremarkable Bones: Unremarkable IMPRESSION: Enteric catheter in satisfactory position.
--- NOTE | 2025-04-29 18:45 | DVHPN2 ---
Subjective Has NGT in place Reviewed: H&P, Labs Changes from previous H/P or p: No Changes Eyes: No Pain, No Vision change, No Conjunctivae inflammation, No Eyelid inflammation, No Other, No Redness ENT: No Ear pain, No Ear discharge, No Nose pain, No Nose discharge, No Nose congestion, No Mouth pain, No Mouth swelling, No Throat pain, No Throat swelling, No Other Cardiovascular: No Chest Pain, No Palpitations, No Orthopnea, No Paroxysmal Noc. Dyspnea, No Edema, No Lt Headedness, No Other Respiratory: No Cough, No Dry, No Shortness of breath, No SOB with excertion, No Wheezing, No Hemoptysis, No Pleuritic Pain, No Sputum, No Other Gastrointestinal: Nausea, Vomiting, Abdominal Pain, Diarrhea; No Constipation, No Melena, No Hematochezia, No Other Genitourinary: No Dysuria, No Frequency, No Incontinence, No Hematuria, No Retention, No Other Musculoskeletal: No other, No neck pain, No shoulder pain, No arm pain, No back pain, No hand pain, No leg pain, No foot pain Skin: No Rash, No Lesions, No Jaundice, No Bruising, No Other Objective Vitals Vital Signs Date Time Temp Pulse Resp B/P (MAP) Pulse Ox O2 Delivery O2 Flow Rate FiO2 04/29/25 17:41 73 18 136/67 04/29/25 17:02 98.2 90 98.2 04/29/25 08:00 Room Air* 0 21 Intake/Output Intake and Output 04/29/25 07:00 Intake Total 480 ml Output Total 750 ml Balance -270 ml Intake Oral 0 ml IV Total 480 ml Output Urine Total 100 ml Gastric Drainage Total 650 ml General Appearance: Alert, Oriented X3 HEENT: Atraumatic, PERRLA Cardiovascular: Regular rate, Normal S1, Normal S2 Abdomen: Normal bowel sounds Medications Current Medications Medications Dose Ordered Sig/Jon Route Start Time Stop Time Status Last Admin Dose Admin Ceftriaxone Sodium 50 ml @ 100 mls/hr DAILY@2100 IV 04/29/25 21:00 Sodium Chloride 1,000 ml @ 60 mls/hr [id number] IV 04/28/25 22:15 04/29/25 16:51 60 MLS/HR Acetaminophen/ Hydrocodone Bitart 1 tab Q4HP PRN PO 04/28/25 22:15 Ondansetron HCl 4 mg Q4HP PRN IV 04/28/25 22:15 04/28/25 23:11 4 MG Acetaminophen 650 mg Q6HP PRN PO 04/28/25 22:15 Morphine Sulfate 2 mg Q4HPRN PRN IV 04/28/25 22:15 04/29/25 17:41 2 MG Nitroglycerin 0.4 mg Q5MINP PRN SL 04/28/25 22:15 Morphine Sulfate 2 mg Q30M PRN IV 04/28/25 22:15 Laboratory Results Laboratory Tests 04/29/25 03:20 04/29/25 11:00 Chemistry Test 04/29/25 03:20 Albumin 4.6 g/dL (3.2-4.8) Calcium Level 10.6 mg/dL (8.7-10.4) H Total Protein 6.6 g/dL (5.7-8.2) LFT Test 04/29/25 03:20 Alanine Aminotransferase (ALT) 47 U/L (7-40) H Alkaline Phosphatase 108 U/L (46-116) Aspartate Amino Transferase (AST) 27 U/L (13-40) Total Bilirubin 0.7 mg/dL (0.2-1.0) Urinalysis Test 04/28/25 21:42 Urine Color Yellow (Yellow) Urine Clarity Turbid (Clear) H Urine pH 7.5 (5.0-9.0) Urine Specific [place] 1.025 (1.001-1.035) Urine Protein 1+ (Negative) H Urine Ketones Negative (Negative) Urine Blood 2+ /uL (Negative) H Urine Nitrite Negative (Negative) Urine Bilirubin Negative (Negative) Urine Urobilinogen Normal mg/dL (Negative) Urine Leukocyte Esterase Trace /uL (Negative) Urine RBC 45 /hpf (0 - 3) Urine Microscopic WBC 20 /HPF (0-3) H Urine Squamous Epithelial Cells Few /hpf (<5) Urine Bacteria None seen /hpf (None Seen) Urine Mucus Few (None Seen) Urine Glucose Normal mg/dL (Normal) Microbiology Microbiology Date/Time Source Procedure Growth Status 04/29/25 06:48 Nose MRSA Screen - Final Complete Assessment/Plan Assessment/Plan Acute abdominal pain Small bowel obstruction Hepatic steatosis Leukocytosis, unspecified Generalized weakness Continue NGT IVF Surgery on consult labs daily Plan discussed with: Patient Date of Service: Apr 29, 2025 Billing Provider: REBECCA NEGRETE MD Common Visit Codes: [id number] INP/OBS CARE(HIGH) REBECCA NEGRETE MD Apr 29, 2025 18:45
[2025-04-30] VITALS (8 sets, daily range): BP systolic 122–141; BP diastolic 61–83; PULSE 64–91; RESP 17–18; TEMP 97.6–98.2; O2SAT 89–100
[2025-04-30] MEDS: SODIUM CHLORIDE 0.9% 1,000 ML IV SCH (11:49)
--- NOTE | 2025-04-30 11:54 | DVHINCON2 ---
Date of service: Apr 30, 2025 History of Present Illness 69-year-old male with a history of colon cancer status post partial colectomy 25 years ago with multiple episodes of partial small bowel obstruction all resolved with conservative treatment now complaining of four day history of diffuse abdominal pain associated with nausea. Past Medical History CAD with a history of RI. history of kidney stones. Past Surgical History Colon cancer status post partial colectomy. Bladder cancer status post TURP Family History: FH: cancer G8 MOTHER G8 FATHER Family History Noncontributory Social History Still smokes half a pack a day. Denies any alcohol or tobacco. Allergies: Coded Allergies: NO KNOWN ALLERGIES (Unverified , 03/30/20) Home Meds Reported Medications Naproxen (NAPROSYN TABLET) 500 Mg Tb, 1 TAB PO BID, #60 TAB 1 Refill 04/29/25 Tamsulosin Hcl (Tamsulosin Hcl) 0.4 Mg Cap, 1 CAP PO DAILY 04/29/25 Atorvastatin Calcium (ATORVASTATIN CALCIUM) 40 Mg Tab, 1 TAB PO DAILY 04/29/25 Clopidogrel Bisulfate (CLOPIDOGREL) 75 Mg Tab, 75 MG PO DAILY, TAB 04/04/25 Naproxen (NAPROSYN TABLET) 500 Mg Tb, 500 MG GT DAILYP PRN for prn, TAB 04/04/25 Ezetimibe (Zetia) 10 Mg Tab, 10 MG PO DAILY, TAB 02/24/24 Atorvastatin Calcium (Lipitor) 40 Mg Tab, 1 TAB PO QPM, #90 TAB 1 Refill 03/31/20 Current Medications Current Medications Medications (Trade) Dose Ordered Sig/Jon Route PRN Reason Start Time Stop Time Status Last Admin Ceftriaxone Sodium 50 ml @ 100 mls/hr DAILY@2100 IV 04/29/25 21:00 Sodium Chloride 1,000 ml @ 75 mls/hr [id number] IV 04/30/25 11:00 Vital Signs Vital Signs Date Time Temp Pulse Resp B/P (MAP) Pulse Ox O2 Delivery O2 Flow Rate FiO2 04/30/25 10:17 75 12 125/80 04/30/25 09:00 97.7 92 97.7 04/30/25 08:00 Room Air* 0 21 Physical Exam GEN: Age-appropriate male in no acute distress. Alert. HEENT: Normocephalic atraumatic. Moist mucous membranes. Anicteric sclerae. CV: RRR RESP: CTAB ABD: Large midline incisional scar. Diffuse tenderness to palpation with minimal guarding. Moderate distention. CT of the abdomen and pelvis: Small bowel obstruction with transition point in the right lower quadrant at the distal ileum. Labs/Diagnostic Data Labs Test 04/29/25 11:00 04/29/25 03:20 04/28/25 22:23 04/28/25 21:42 Range/Units White Blood Count 13.4 H 4.4-10.8 10^3/uL Red Blood Count 5.45 4.5-5.90 10^6/uL Hemoglobin 16.7 13.5-17.5 g/dL Hematocrit 49.4 41.0-53.0 % Mean Corpuscular Volume 90.6 # 80.0-100.0 fL Mean Corpuscular Hemoglobin 30.7 28.0-32.0 pg Mean Corpuscular Hemoglobin Concent 33.8 32.0-36.0 g/dL Red Cell Distribution Width 14.9 H 11.8-14.3 % Platelet Count 177 140-450 10^3/uL Mean Platelet Volume 8.6 6.9-10.8 fL Neutrophils (%) (Auto) 77.6 37.0-80.0 % Lymphocytes (%) (Auto) 11.5 10.0-50.0 % Monocytes (%) (Auto) 9.9 0.0-12.0 % Eosinophils (%) (Auto) 0.3 0.0-7.0 % Basophils (%) (Auto) 0.7 0.0-2.0 % Neutrophils # (Auto) 10.4 H 1.6-8.6 10 ^3/uL Lymphocytes # (Auto) 1.5 0.4-5.4 10 ^3/uL Monocytes # (Auto) 1.3 0-1.3 10 ^3/uL Eosinophils # (Auto) 0 0-0.8 10 ^3/uL Basophils # (Auto) 0.1 0-0.2 10 ^3/uL Nucleated Red Blood Cells 0.1 % Sodium Level 142 136-145 mmol/L Potassium Level 3.7 3.5-5.1 mmol/L Chloride Level 105 98-107 mmol/L Carbon Dioxide Level 26 20-31 mmol/L Anion Gap 11 5-15 Blood Urea Nitrogen 22 9-23 mg/dL Creatinine 1.00 0.700-1.30 mg/dL Glomerular Filtration Rate Calc 80 >90 mL/min BUN/Creatinine Ratio 22.0 H 10.0-20.0 Serum Glucose 121 H 74-106 mg/dL Calcium Level 10.6 H 8.7-10.4 mg/dL Total Bilirubin 0.7 0.2-1.0 mg/dL Aspartate Amino Transferase (AST) 27 13-40 U/L Alanine Aminotransferase (ALT) 47 H 7-40 U/L Alkaline Phosphatase 108 46-116 U/L Troponin I High Sensitivity < 3 L </=54 ng/L Total Protein 6.6 5.7-8.2 g/dL Albumin 4.6 3.2-4.8 g/dL Lactic Acid Level 1.4 0.4-2.0 mmol/L Urine Color Yellow Yellow Urine Clarity Turbid H Clear Urine pH 7.5 5.0-9.0 Urine Specific [place] 1.025 1.001-1.035 Urine Protein 1+ H Negative Urine Ketones Negative Negative Urine Blood 2+ H Negative /uL Urine Nitrite Negative Negative Urine Bilirubin Negative Negative Urine Urobilinogen Normal Negative mg/dL Urine Leukocyte Esterase Trace Negative /uL Urine RBC 45 0 - 3 /hpf Urine Microscopic WBC 20 H 0-3 /HPF Urine Squamous Epithelial Cells Few <5 /hpf Urine Bacteria None seen None Seen /hpf Urine Mucus Few None Seen Urine Glucose Normal Normal mg/dL Test 04/28/25 16:33 Range/Units Lipase 26 12-53 U/L Microbiology Date/Time Source Procedure Growth Status 04/29/25 06:48 Nose MRSA Screen - Final Complete 04/28/25 22:43 Blood Blood Culture - Preliminary NO GROWTH AFTER 24 HOURS OF INCUBATION. Resulted Assessment 1. Small-bowel obstruction Plan/Recommendation 1. Small-bowel follow-through with Gastrografin Plan discussed with: Patient, Spouse, Son DEXPRANEETH BobPaulino Arenas MD Apr 30, 2025 11:54
[2025-04-30] MEDS: GASTROGRAFIN 120 ML SOL ONE (12:01)
--- NOTE | 2025-04-30 16:00 | DVHPN2 ---
Subjective Has NGT in place Reviewed: H&P, Labs Changes from previous H/P or p: No Changes Eyes: No Pain, No Vision change, No Conjunctivae inflammation, No Eyelid inflammation, No Other, No Redness ENT: No Ear pain, No Ear discharge, No Nose pain, No Nose discharge, No Nose congestion, No Mouth pain, No Mouth swelling, No Throat pain, No Throat swelling, No Other Cardiovascular: No Chest Pain, No Palpitations, No Orthopnea, No Paroxysmal Noc. Dyspnea, No Edema, No Lt Headedness, No Other Respiratory: No Cough, No Dry, No Shortness of breath, No SOB with excertion, No Wheezing, No Hemoptysis, No Pleuritic Pain, No Sputum, No Other Gastrointestinal: Nausea, Vomiting, Abdominal Pain, Diarrhea; No Constipation, No Melena, No Hematochezia, No Other Genitourinary: No Dysuria, No Frequency, No Incontinence, No Hematuria, No Retention, No Other Musculoskeletal: No other, No neck pain, No shoulder pain, No arm pain, No back pain, No hand pain, No leg pain, No foot pain Skin: No Rash, No Lesions, No Jaundice, No Bruising, No Other Objective Vitals Vital Signs Date Time Temp Pulse Resp B/P (MAP) Pulse Ox O2 Delivery O2 Flow Rate FiO2 04/30/25 15:50 79 20 131/96 04/30/25 13:00 97.9 100 97.9 04/30/25 08:00 Room Air* 0 21 Intake/Output Intake and Output 04/30/25 07:00 Intake Total 0 ml Output Total 960 ml Balance -960 ml Intake Oral 0 ml Output Urine Total 450 ml Gastric Drainage Total 510 ml General Appearance: Alert, Oriented X3 HEENT: Atraumatic, PERRLA Cardiovascular: Regular rate, Normal S1, Normal S2 Abdomen: Normal bowel sounds Medications Current Medications Medications Dose Ordered Sig/Jon Route Start Time Stop Time Status Last Admin Dose Admin Ceftriaxone Sodium 50 ml @ 100 mls/hr DAILY@2100 IV 04/29/25 21:00 Acetaminophen/ Hydrocodone Bitart 1 tab Q4HP PRN PO 04/28/25 22:15 Ondansetron HCl 4 mg Q4HP PRN IV 04/28/25 22:15 04/30/25 15:49 4 MG Acetaminophen 650 mg Q6HP PRN PO 04/28/25 22:15 Morphine Sulfate 2 mg Q4HPRN PRN IV 04/28/25 22:15 04/30/25 15:50 2 MG Nitroglycerin 0.4 mg Q5MINP PRN SL 04/28/25 22:15 Morphine Sulfate 2 mg Q30M PRN IV 04/28/25 22:15 Sodium Chloride 1,000 ml @ 75 mls/hr [id number] IV 04/30/25 11:00 04/30/25 11:49 75 MLS/HR Laboratory Results Laboratory Tests 04/29/25 03:20 04/29/25 11:00 Urinalysis Test 04/28/25 21:42 Urine Color Yellow (Yellow) Urine Clarity Turbid (Clear) H Urine pH 7.5 (5.0-9.0) Urine Specific [place] 1.025 (1.001-1.035) Urine Protein 1+ (Negative) H Urine Ketones Negative (Negative) Urine Blood 2+ /uL (Negative) H Urine Nitrite Negative (Negative) Urine Bilirubin Negative (Negative) Urine Urobilinogen Normal mg/dL (Negative) Urine Leukocyte Esterase Trace /uL (Negative) Urine RBC 45 /hpf (0 - 3) Urine Microscopic WBC 20 /HPF (0-3) H Urine Squamous Epithelial Cells Few /hpf (<5) Urine Bacteria None seen /hpf (None Seen) Urine Mucus Few (None Seen) Urine Glucose Normal mg/dL (Normal) Microbiology Microbiology Date/Time Source Procedure Growth Status 04/29/25 06:48 Nose MRSA Screen - Final Complete 04/28/25 22:43 Blood Blood Culture - Preliminary NO GROWTH AFTER 24 HOURS OF INCUBATION. Resulted Assessment/Plan Assessment/Plan Acute abdominal pain Small bowel obstruction Hepatic steatosis Leukocytosis, unspecified Generalized weakness Continue NGT IVF Surgery on consult labs daily Plan discussed with: Patient Date of Service: Apr 30, 2025 Billing Provider: REBECCA NEGRETE MD Common Visit Codes: [id number] INP/OBS CARE(HIGH) REBECCA NEGRETE MD Apr 30, 2025 16:00
--- NOTE | 2025-04-30 16:45 | DVH ---
Procedure: XY SMALL BOWEL SERIES-W GASTROGRA Reason for study/Clinical History: SBO patient has history of bowel resection 25 years ago Comparison Study: SMALL BOWEL SERIES-W GASTROGRA on DOS: 03/30/20 Technique: Single contrast small bowel series performed. 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 Otherwise, no acute process identified. On early films contrast is seen within dilated small bowel loops. On later films small amount of cont rast is seen within the colon. IMPRESSION: 1. Findings suggest partial distal small-bowel obstruction, probably in the ileum
[2025-05-01] VITALS (7 sets, daily range): BP systolic 124–143; BP diastolic 74–86; PULSE 53–72; RESP 16–18; TEMP 97.2–98.3; O2SAT 86–93
--- NOTE | 2025-05-01 11:48 | DVH ---
ABDOMINAL RADIOGRAPH Indication: SBO Technique: Single frontal view of the abdomen was obtained Comparison: None FINDINGS: Lines and tubes: None There there are multiple dilated small bowel loops throughout the abdomen. There is colon seen throug hout the entire colon down to the rectum. IMPRESSION: 1. Dilated small bowel loops. 2. Enteric contrast seen throughout the entire colon down to the rectum.
--- NOTE | 2025-05-01 13:06 | DVHPN2 ---
Progress Note - Dictate Date Seen: May 01, 2025 Medical Necessity Reason Pt with a Central, PICC or Fol: No Subjective E: no major events o/n. feels much better. +BM vital signs Vital Sign Date Time Temp Pulse Resp B/P (MAP) Pulse Ox O2 Delivery O2 Flow Rate FiO2 05/01/25 09:00 97.2 53 16 124/78 (93) 86 97.2 05/01/25 08:00 Room Air* 0 21 Total Intake and Output 04/30/25 04/30/25 05/01/25 15:00 23:00 07:00 Intake Total 50 ml 0 ml Output Total 600 ml 220 ml Balance -550 ml -220 ml medications Current Medications Medications Dose Ordered Sig/Jon Route Start Time Stop Time Status Last Admin Dose Admin Ceftriaxone Sodium 50 ml @ 100 mls/hr DAILY@2100 IV 04/29/25 21:00 04/30/25 20:24 100 MLS/HR Acetaminophen/ Hydrocodone Bitart 1 tab Q4HP PRN PO 04/28/25 22:15 Ondansetron HCl 4 mg Q4HP PRN IV 04/28/25 22:15 04/30/25 15:49 4 MG Acetaminophen 650 mg Q6HP PRN PO 04/28/25 22:15 Morphine Sulfate 2 mg Q4HPRN PRN IV 04/28/25 22:15 05/01/25 01:25 2 MG Nitroglycerin 0.4 mg Q5MINP PRN SL 04/28/25 22:15 Morphine Sulfate 2 mg Q30M PRN IV 04/28/25 22:15 Sodium Chloride 1,000 ml @ 75 mls/hr [id number] IV 04/30/25 11:00 05/01/25 04:27 75 MLS/HR objective GEN: NAD ABD: soft. much less TTP. no G/R. KUB: contrast in colon. laboratory and microbiology Laboratory Tests 04/29/25 11:00 04/29/25 03:20 Test 04/29/25 03:20 Range/Units Serum Glucose 121 H 74-106 mg/dL Assessment/Plan A: 1. resolving pSBO P: 1. dc NGT and start clear liquid diet. if jaqueline, ok for DC from surgery POV on liquid diet for next day or 2. Plan discussed with: Patient MACIEL KOWALSKI MD May 01, 2025 13:06
--- NOTE | 2025-05-01 15:52 | DVHPN2 ---
Subjective Has NGT in place Reviewed: H&P, Labs Changes from previous H/P or p: No Changes Eyes: No Pain, No Vision change, No Conjunctivae inflammation, No Eyelid inflammation, No Other, No Redness ENT: No Ear pain, No Ear discharge, No Nose pain, No Nose discharge, No Nose congestion, No Mouth pain, No Mouth swelling, No Throat pain, No Throat swelling, No Other Cardiovascular: No Chest Pain, No Palpitations, No Orthopnea, No Paroxysmal Noc. Dyspnea, No Edema, No Lt Headedness, No Other Respiratory: No Cough, No Dry, No Shortness of breath, No SOB with excertion, No Wheezing, No Hemoptysis, No Pleuritic Pain, No Sputum, No Other Gastrointestinal: Nausea, Vomiting, Abdominal Pain, Diarrhea; No Constipation, No Melena, No Hematochezia, No Other Genitourinary: No Dysuria, No Frequency, No Incontinence, No Hematuria, No Retention, No Other Musculoskeletal: No other, No neck pain, No shoulder pain, No arm pain, No back pain, No hand pain, No leg pain, No foot pain Skin: No Rash, No Lesions, No Jaundice, No Bruising, No Other Objective Vitals Vital Signs Date Time Temp Pulse Resp B/P (MAP) Pulse Ox O2 Delivery O2 Flow Rate FiO2 05/01/25 09:00 97.2 53 16 124/78 (93) 86 97.2 05/01/25 08:00 Room Air* 0 21 Intake/Output Intake and Output 05/01/25 07:00 Intake Total 50 ml Output Total 820 ml Balance -770 ml Intake Oral 0 ml IV Total 50 ml Output Urine Total 820 ml General Appearance: Alert, Oriented X3 HEENT: Atraumatic, PERRLA Cardiovascular: Regular rate, Normal S1, Normal S2 Abdomen: Normal bowel sounds Medications Current Medications Medications Dose Ordered Sig/Jon Route Start Time Stop Time Status Last Admin Dose Admin Ceftriaxone Sodium 50 ml @ 100 mls/hr DAILY@2100 IV 04/29/25 21:00 04/30/25 20:24 100 MLS/HR Acetaminophen/ Hydrocodone Bitart 1 tab Q4HP PRN PO 04/28/25 22:15 Ondansetron HCl 4 mg Q4HP PRN IV 04/28/25 22:15 04/30/25 15:49 4 MG Acetaminophen 650 mg Q6HP PRN PO 04/28/25 22:15 Morphine Sulfate 2 mg Q4HPRN PRN IV 04/28/25 22:15 05/01/25 01:25 2 MG Nitroglycerin 0.4 mg Q5MINP PRN SL 04/28/25 22:15 Morphine Sulfate 2 mg Q30M PRN IV 04/28/25 22:15 Sodium Chloride 1,000 ml @ 75 mls/hr [id number] IV 04/30/25 11:00 05/01/25 04:27 75 MLS/HR Laboratory Results Laboratory Tests 04/29/25 03:20 04/29/25 11:00 Urinalysis Test 04/28/25 21:42 Urine Color Yellow (Yellow) Urine Clarity Turbid (Clear) H Urine pH 7.5 (5.0-9.0) Urine Specific [place] 1.025 (1.001-1.035) Urine Protein 1+ (Negative) H Urine Ketones Negative (Negative) Urine Blood 2+ /uL (Negative) H Urine Nitrite Negative (Negative) Urine Bilirubin Negative (Negative) Urine Urobilinogen Normal mg/dL (Negative) Urine Leukocyte Esterase Trace /uL (Negative) Urine RBC 45 /hpf (0 - 3) Urine Microscopic WBC 20 /HPF (0-3) H Urine Squamous Epithelial Cells Few /hpf (<5) Urine Bacteria None seen /hpf (None Seen) Urine Mucus Few (None Seen) Urine Glucose Normal mg/dL (Normal) Microbiology Microbiology Date/Time Source Procedure Growth Status 04/29/25 06:48 Nose MRSA Screen - Final Complete 04/28/25 22:43 Blood Blood Culture - Preliminary NO GROWTH AFTER 48 HOURS OF INCUBATION. Resulted Assessment/Plan Assessment/Plan Acute abdominal pain Small bowel obstruction Hepatic steatosis Leukocytosis, unspecified Generalized weakness Continue NGT IVF Small bowel follow through results with contrast up to rectum Surgery on consult labs daily Plan discussed with: Patient Date of Service: May 01, 2025 Billing Provider: REBECCA NEGRETE MD Common Visit Codes: [id number] INP/OBS CARE(HIGH) REBECCA NEGRETE MD May 01, 2025 15:52
[2025-05-02 01:00] VITALS: BP 110/72; RESP 20; TEMP 97.4; O2SAT 90
[2025-05-02 05:00] VITALS: BP 135/87; PULSE 64; RESP 16; TEMP 96.8; O2SAT 87
[2025-05-02 08:00] VITALS: PULSE 80
[2025-05-02 08:56] VITALS: BP 112/72; PULSE 76; RESP 17; TEMP 97.6; O2SAT 94
--- NOTE | 2025-05-02 09:16 | DVHPN2 ---
Progress Note - Dictate Date Seen: May 02, 2025 Medical Necessity Reason Pt with a Central, PICC or Fol: No Subjective E: no major events o/n. no complaints. jaqueline po well. wants to go home. vital signs Vital Sign Date Time Temp Pulse Resp B/P (MAP) Pulse Ox O2 Delivery O2 Flow Rate FiO2 05/02/25 08:56 97.6 76 17 112/72 (85) 94 97.6 05/02/25 08:00 Room Air* 0 21 Total Intake and Output 05/01/25 05/01/25 05/02/25 14:59 22:59 06:59 Intake Total 575 ml Output Total 575 ml Balance 0 ml medications Current Medications Medications Dose Ordered Sig/Jon Route Start Time Stop Time Status Last Admin Dose Admin Ceftriaxone Sodium 50 ml @ 100 mls/hr DAILY@2100 IV 04/29/25 21:00 04/30/25 20:24 100 MLS/HR Acetaminophen/ Hydrocodone Bitart 1 tab Q4HP PRN PO 04/28/25 22:15 Ondansetron HCl 4 mg Q4HP PRN IV 04/28/25 22:15 04/30/25 15:49 4 MG Acetaminophen 650 mg Q6HP PRN PO 04/28/25 22:15 Morphine Sulfate 2 mg Q4HPRN PRN IV 04/28/25 22:15 05/01/25 01:25 2 MG Nitroglycerin 0.4 mg Q5MINP PRN SL 04/28/25 22:15 Morphine Sulfate 2 mg Q30M PRN IV 04/28/25 22:15 Sodium Chloride 1,000 ml @ 75 mls/hr [id number] IV 04/30/25 11:00 05/01/25 04:27 75 MLS/HR objective GEN: NAD ABD: soft. less TTP. no G/R. laboratory and microbiology Laboratory Tests 04/29/25 11:00 04/29/25 03:20 Test 04/29/25 03:20 Range/Units Serum Glucose 121 H 74-106 mg/dL Assessment/Plan A: 1. resolved pSBO P: 1. stable from surgery POV 2. DC plan per hospitalist. 3. advance diet slowly once at home. Plan discussed with: Patient MACIEL KOWALSKI MD May 02, 2025 09:16
[2025-05-02 13:16] VITALS: BP 124/69; PULSE 59; RESP 18; TEMP 97.4; O2SAT 95
== END 2025-05-02 13:53 | disposition home or self-care (01) | DRG 390 ==
LOC: ER 15:54 → OVERFLOW 22:15 → TELE-WESTW 23:43
PROVIDERS: ADMIT Hospitalist; ATTEND Hospitalist
PROC: 0D9670Z Drainage of Stomach with Drainage Device, Via Natural or Artificial Opening (ICD-10-PCS; principal; 2025-04-29)
DX: K56.600 Partial intestinal obstruction, unspecified as to cause (principal); K76.0 Fatty (change of) liver, not elsewhere classified; I25.10 Atherosclerotic heart disease of native coronary artery without angina pectoris; F17.210 Nicotine dependence, cigarettes, uncomplicated; D72.829 Elevated white blood cell count, unspecified; Z85.038 Personal history of other malignant neoplasm of large intestine; Z90.49 Acquired absence of other specified parts of digestive tract; Z79.899 Other long term (current) drug therapy; I25.2 Old myocardial infarction; Z87.442 Personal history of urinary calculi; Z85.51 Personal history of malignant neoplasm of bladder; Z90.79 Acquired absence of other genital organ(s); Z80.8 Family history of malignant neoplasm of other organs or systems; Z95.5 Presence of coronary angioplasty implant and graft
CPT/HCPCS: 36415; 71045; 74018; 74177; 74250; 80048; 80053; 81001; 83605; 83690; 84484; 85025; 87040; 87081; 96374; 96375; G0378; J2405

== ENCOUNTER 2025-05-05 11:07 | Inpatient (IN) | payer OTHER ==
[2025-05-05] VITALS (7 sets, daily range): BP systolic 104–106; BP diastolic 55; PULSE 65–84; RESP 16–19; TEMP 97.7–97.9; O2SAT 95–98
[~2025-05-05] VITALS: Ht 182.9 cm; Wt 90.0 kg
[~2025-05-05 11:07] MED LIST changes: +ATOR40TA52 PO; +NAP500T PO; +TAMS0.4C39 PO
--- NOTE | 2025-05-05 11:20 | ED.PDOC ---
GI ASSESSMENT HPI Comments 69-year-old male presents with a chief complaint of abdominal pain, nausea, and vomiting. Patient states that he was recently seen here and admitted last x 1 week ago and was discharged this past Friday x 3 days ago. Patient reports that he had a small bowel obstruction and believes that he has it again. Patient reports nausea and vomiting, but is not actively vomiting at this time. Patient also mentions that his urine is orange in color. PMHx: Bladder Cancer, HLD, CAD, Renal Stones, [place] PSHx: Bladder Surgery, Coronary Stents DANCE: HPI: Poor Historian. Past Medical History: Past Surgical History: REVIEW OF SYSTEMS: CONSTITUTIONAL: Denies acute: fever, diaphoresis, chills, generalized weakness. HEAD: Denies acute: headache, photophobia Eyes: Denies acute: Double vision, vision loss, eye pain, eye discharge. EARS: Denies acute: tinnitus, hearing loss, ear discharge, ear pain, THROAT: Denies acute: sore throat, swelling, difficulty swallowing , pain with swallowing, change in voice. NECK: Denies acute: neck pain, neck swelling, stiff neck. HEART: Denies acute : chest pain, palpitations, LUNGS: Denies acute: SOB, wheezing, cough, hemoptysis ABDOMEN: Denies acute: diarrhea, melena , hematemesis, hematochezia SKIN: Denies acute: rash, redness, lesions, itchiness. EXTREMITIES: Denies acute: calf pain, numbness, tingling, weakness, denies pain in extremity. Denies acute: Low back pain. Neuro: Denies acute: focal neurological deficit, motor or sensory focal neurological deficit, tremors, seizure like activity, confusion, dizziness, change in mental status, loss of bowel or bladder function, cauda equina like symptoms. : Denies acute: dysuria, hematuria, flank pain, increase in urinary frequency. PSYCH: Denies acute: hallucination, suicidal ideation, homicidal ideation. PHYSICAL EXAM: General: ----[id number]----acute distress, awake and alert. Head: normocephalic, atraumatic. Neck: supple, trachea is midline, no swelling. Throat: Normal phonation. Eyes:, no erythema, no purulent discharge, no proptosis, no icterus. Heart: regular rate, regular rhythm, no significant murmur appreciated. Lungs: no apparent respiratory distress, Able to speak in full sentences. No wheezing, no rhonchi, no crackles. No stridors Clear to auscultation bilaterally. Abdomen: Generalized lower tender to palpation, slightly distended, soft, no guarding, no rebound, + bowel sounds. Neuro: Awake, Alert, oriented to name, self, situation, follows commands GCS=15. Speech is normal. Skin: no petechia, no purpura, no cyanosis, non-pale, not jaundice. Lower extremities: --no - Pitting edema no deformity, no focal swelling, no calf TTP. Makes eye contact. moves all four extremities. Face: no apparent facial droop. Ambulating in the ED independently. ED COURSE: DISCLAIMER: This medical document was created using an electronic medical record system with voice recognition software and computerized dictation system. Although this document has been carefully reviewed, there might still be some phonetic and typographical errors. Occasional wrong-word or "sound-alike" substitutions may have occurred due to the inherent limitations of voice recognition software. These areas are purely typographical due to imperfections of the software programs and do not reflect any compromise in the patient's medical care. Please read the chart carefully and recognize, using context, where these substitutions have occurred. Time Seen by MD: 11:16 Primary Care Provider: IBETH Reviewed Notes: Allergies Allergies: Coded Allergies: NO KNOWN ALLERGIES (Unverified , 03/30/20) Home Meds Reported Medications Naproxen (NAPROSYN TABLET) 500 Mg Tb, 1 TAB PO BID, #60 TAB 1 Refill 04/29/25 Tamsulosin Hcl (Tamsulosin Hcl) 0.4 Mg Cap, 1 CAP PO DAILY 04/29/25 Atorvastatin Calcium (ATORVASTATIN CALCIUM) 40 Mg Tab, 1 TAB PO DAILY 04/29/25 Clopidogrel Bisulfate (CLOPIDOGREL) 75 Mg Tab, 75 MG PO DAILY, TAB 04/04/25 Ezetimibe (Zetia) 10 Mg Tab, 10 MG PO DAILY, TAB 02/24/24 Discontinued Reported Medications Atorvastatin Calcium (Lipitor) 40 Mg Tab, 1 TAB PO QPM, #90 TAB 1 Refill 03/31/20 Information Source: Patient Past Medical History PAST MEDICAL HISTORY: CAD, Cancer, High Lipids, Kidney Stones, [place] Surgical History: PTCA Family History Family History: Unknown Social History Smoker: Cigarettes Alcohol: Denies ETOH Use Drugs: Denies Drug Use Lives In: Home Was a procedure done? Was a procedure done?: No GI differential Dx Differential Diagnosis: Other (DDX include but not limited to diverticulitis, colitis, gastroenteritis, acute abdomen, SBO, enteritis, constipation, volvulus, appendicitis, Gallbladder disease, choledocolithiasis, ascending cholangitis, pancreatitis, intraAbdominal mass/neoplasm, hepatitis, UTI, pylonephritis, kidney stone, aneurysm, dissection, Inflammatory bowel disease, gastroparesis, ischemic bowel.) X-Ray, Labs, Meds, VS Vital Signs Date Time Temp Pulse Resp B/P (MAP) Pulse Ox O2 Delivery O2 Flow Rate FiO2 05/05/25 16:10 75 15 103/60 (74) 92 05/05/25 15:10 72 18 115/66 (82) 92 05/05/25 14:10 78 17 110/58 (75) 98 05/05/25 13:10 97.9 84 19 112/58 (76) 97.9 05/05/25 13:10 84 19 97 Room Air* 0 21 05/05/25 11:48 74 16 98 Room Air* 0 21 05/05/25 11:24 98 05/05/25 11:11 97.4 107 18 134/63 (86) 95 97.4 Lab Test 05/05/25 14:41 05/05/25 12:43 05/05/25 11:40 Range/Units Lactic Acid Level 1.4 3.3 *H 0.4-2.0 mmol/L Troponin I High Sensitivity 4 3 L < 3 L </=54 ng/L White Blood Count 11.1 H 4.4-10.8 10^3/uL Red Blood Count 5.29 4.5-5.90 10^6/uL Hemoglobin 16.4 13.5-17.5 g/dL Hematocrit 46.5 41.0-53.0 % Mean Corpuscular Volume 88.0 80.0-100.0 fL Mean Corpuscular Hemoglobin 31.0 28.0-32.0 pg Mean Corpuscular Hemoglobin Concent 35.2 32.0-36.0 g/dL Red Cell Distribution Width 14.5 H 11.8-14.3 % Platelet Count 213 140-450 10^3/uL Mean Platelet Volume 8.4 6.9-10.8 fL Neutrophils (%) (Auto) 74.2 37.0-80.0 % Lymphocytes (%) (Auto) 13.1 10.0-50.0 % Monocytes (%) (Auto) 10.3 0.0-12.0 % Eosinophils (%) (Auto) 2.0 0.0-7.0 % Basophils (%) (Auto) 0.4 0.0-2.0 % Neutrophils # (Auto) 8.2 1.6-8.6 10 ^3/uL Lymphocytes # (Auto) 1.5 0.4-5.4 10 ^3/uL Monocytes # (Auto) 1.1 0-1.3 10 ^3/uL Eosinophils # (Auto) 0.2 0-0.8 10 ^3/uL Basophils # (Auto) 0 0-0.2 10 ^3/uL Nucleated Red Blood Cells 0.2 % Urine Color Yellow Yellow Urine Clarity Turbid H Clear Urine pH 5.5 5.0-9.0 Urine Specific [place] 1.031 1.001-1.035 Urine Protein 1+ H Negative Urine Ketones Negative Negative Urine Blood 2+ H Negative /uL Urine Nitrite Negative Negative Urine Bilirubin Negative Negative Urine Urobilinogen Normal Negative mg/dL Urine Leukocyte Esterase Trace Negative /uL Urine RBC 17 0 - 3 /hpf Urine Microscopic WBC 30 H 0-3 /HPF Urine Squamous Epithelial Cells Few <5 /hpf Urine Bacteria None seen None Seen /hpf Urine Mucus Few None Seen Urine Glucose Normal Normal mg/dL Sodium Level 141 136-145 mmol/L Potassium Level 3.1 L 3.5-5.1 mmol/L Chloride Level 99 98-107 mmol/L Carbon Dioxide Level 31 20-31 mmol/L Anion Gap 11 5-15 Blood Urea Nitrogen 28 H 9-23 mg/dL Creatinine 1.18 0.700-1.30 mg/dL Glomerular Filtration Rate Calc 66 >90 mL/min BUN/Creatinine Ratio 23.7 H 10.0-20.0 Serum Glucose 133 H 74-106 mg/dL Calcium Level 9.8 8.7-10.4 mg/dL Total Bilirubin 1.5 H 0.2-1.0 mg/dL Aspartate Amino Transferase (AST) 206 H 13-40 U/L Alanine Aminotransferase (ALT) 428 H 7-40 U/L Alkaline Phosphatase 122 H 46-116 U/L Total Protein 6.8 5.7-8.2 g/dL Albumin 4.6 3.2-4.8 g/dL Lipase 49 12-53 U/L Microbiology Date/Time Source Procedure Growth Status 05/05/25 12:55 Blood Blood Culture - Preliminary NO GROWTH AFTER 24 HOURS OF INCUBATION. Resulted 05/05/25 12:40 Blood Blood Culture - Preliminary NO GROWTH AFTER 24 HOURS OF INCUBATION. Resulted [place] [address] Ph: [phone] DIAGNOSTIC IMAGING Diagnostic Imaging Report : [id number] Signed PATIENT: ITZ WHITAKER ACCT: [id number] UNIT: [id number] : 1955 LOC: ER ROOM / BED: / AGE / SEX: 69 / M ADM STATUS: REG ER SERVICE 1115 ORDERING PHYSICIAN: SHWETA YAN DO PROCEDURE(s): ABPL - CT AB PEL WO CON-NO ORAL OR IV REASON: abd pain n/v ORDER NUMBER(s): [id number], ACCESSION NUMBER(s): [id number] Exam: CT CT AB PEL WO CON-NO ORAL OR IV History: abd pain n/v Comparison Study: CT ABD PELVIS WO CONTRAST on DOS: 03/30/20 TECHNIQUE: Multidetector CT of the abdomen was performed from lung bases to pubic symphysis. Imaging was performed without IV contrast. Axial, coronal and sagittal multiplanar reformats were obtained from the axial data set by the technologist. Radiation Dose Information: CT Dose: CTDI volume is 11.04 mGy. Dose-length product is mGy*cm FINDINGS: Evaluation of solid organs is limited due to lack of intravenous contrast use. Findings: Diffuse bronchial wall thickening with scattered atelectasis- scarring within th e image lower lungs. The liver, gallbladder, spleen, pancreas, and adrenal glands are within normal limits. Moderate left-sided hydronephrosis. Punctate left lower pole renal stone. The right kidney and urinary bladder are within normal limits. 1.5 cm left upper pole renal cyst. There is redemonstration of small bowel dilatation of the jejunum and mid- distal ilium. There is no definite sharp transition point; However, the small bowel appears more dilated proximal to the small bowel anastomosis within the right lower abdomen. There is no pneumatosis or free air. Terminal ileum is decompressed. The colon contains contrast though appears decompressed. There is mild presacral thickening with sequela of prior low anterior resection. The bones are demineralized. Mild- moderate degenerative changes within the spine. IMPRESSION: 1. Redemonstration of small bowel dilatation without obvious transition point, though the small bowel appears to be more dilated proximal to the right lower abdominal small bowel anastomosis. Findings appear somewhat similar to 2020 which may be indicative of slow transit as opposed to true obstruction. Correl ate with clinical symptoms. 2. Moderate left-sided hydronephrosis of unknown etiology, unchanged. Recommend urology consultation and evaluation for obstruction at the level of the left UPJ. 3. Chronic large airways disease - Bronchitis Radiation optimization: All CT scans at this facility use at least one of these dose optimization techniques: automated exposure control mA and/or kV adjustment per patient size (includes targeted exams where dose is matched to clinical indication) or iterative reconstruction. ATED BY: MICHELLE BURROWS MD DICTATED DATE/TIME: 05/05/251214 SIGNED BY: MICHELLE BURROWS MD SIGNED DATE/TIME: 05/05/251214 Time of 1ST Reevaluation: 11:46 Reevaluation 1ST: Unchanged Patient Education/Counseling: Diagnosis, Treatment Family Education/Counseling: No Family Present Comments MDM: patient presented with the above HPI.--abdominal pain---workup was initiated. patient was found with the above mentioned diagnosis. the following medications were ordered: please refer to order lists of meds and tests obtained by myself Dr. Yan. Patient ED course and VS have been stabilized. Patient has been reassessed in the ED and remained in a stable condition. Pertinent incidental findings were discussed with the patient and/or family. Patient/family voices understanding and is agreeable with plan. Patient has been observed in the ED adequate length of time to insure improvement/stability. Escalation of care considered: Patient was made NPO. Potassium was replaced. Empiric antibiotics Zosyn was initiated. Patient has no active vomiting here in the ED. Consideration of escalation to observation or admission General surgery consult was placed. Patient was ADMITTED to the medicine team for further evaluation and treatment of their presentation. All the reports of any imaging studies that were ordered by myself were reviewed by myself. Departure 1 Departure Time of Disposition: 12:42 Impression: Primary Impression: SBO (small bowel obstruction) Additional Impressions: Hydroureteronephrosis UTI (urinary tract infection) Elevated LFTs Hypokalemia Disposition: ADMITTED INPATIENT Admit to: Tele Condition: Guarded Discharged With: Self Critical Care Note Critical Care Time?: Yes (45 min-critical care time only) I personally scribed for SHWETA YAN DO ([email or web address]) on 05/05/25 at 11:20. Electronically submitted by Kei Pavon ([email or web address]). I personally scribed for SHWETA YAN DO ([email or web address]) on 05/05/25 at 13:19. Electronically submitted by Kei Pavon ([email or web address]). SHWETA YAN DO May 05, 2025 11:20
[2025-05-05] MEDS: SODIUM CHLORIDE 0.9% 1,000 ML IV ONE (11:47)
[2025-05-05 11:52] LABS: Urine Protein, UAD 1+ (Negative)
[2025-05-05 12:04] LABS: Hematocrit 46.5 % (41.0-53.0); Hemoglobin 16.4 g/dL (13.5-17.5); Mean Corpuscular Hemoglobin 31.0 pg (28.0-32.0); Mean Corpuscular Volume 88.0 fL (80.0-100.0); Nucleated Red Blood Cells % 0.2 %
[2025-05-05 12:14] LABS: Alanine Aminotransferase 428 U/L (7-40); Albumin 4.6 g/dL (3.2-4.8); Alkaline Phosphatase 122 U/L (46-116); Anion Gap 11 (5-15); BUN/Creatinine Ratio 23.7 (10.0-20.0); Bilirubin, Total 1.5 mg/dL (0.2-1.0); Blood Urea Nitrogen 28 mg/dL (9-23); Calcium 9.8 mg/dL (8.7-10.4); Carbon Dioxide 31 mmol/L (20-31); Chloride 99 mmol/L (98-107); Glucose 133 mg/dL (74-106); Lipase 49 U/L (12-53); Potassium 3.1 mmol/L (3.5-5.1); Sodium 141 mmol/L (136-145); Total Protein 6.8 g/dL (5.7-8.2)
--- NOTE | 2025-05-05 12:17 | DVH ---
Exam: CT CT AB PEL WO CON-NO ORAL OR IV History: abd pain n/v Comparison Study: CT ABD PELVIS WO CONTRAST on DOS: 03/30/20 TECHNIQUE: Multidetector CT of the abdomen was performed from lung bases to pubic symphysis. Imaging was performed without IV contrast. Axial, coronal and sagittal multiplanar reformats were obtained fr om the axial data set by the technologist. Radiation Dose Information: CT Dose: CTDI volume is 11.04 mGy. Dose-length product is mGy*cm FINDINGS: Evaluation of solid organs is limited due to lack of intravenous contrast use. Findings: Diffuse bronchial wall thickening with scattered atelectasis- scarring within the image lower lungs. The liver, gallbladder, spleen, pancreas, and adrenal glands are within normal limits. Moderate left-sided hydronephrosis. Punctate left lower pole renal stone. The right kidney and urinar y bladder are within normal limits. 1.5 cm left upper pole renal cyst. There is redemonstration of small bowel dilatation of the jejunum and mid- distal ilium. There is no definite sharp transition point; However, the small bowel appears more dilated proximal to the small bowel anastomosis within the right lower abdomen. There is no pneumatosis or free air. Terminal ileum is decompressed. The colon contains contrast though appears decompressed. There is mild presacral thickening with sequela of prior low anterior resection. The bones are demine ralized. Mild- moderate degenerative changes within the spine. IMPRESSION: 1. Redemonstration of small bowel dilatation without obvious transition point, though the small bowel appears to be more dilated proximal to the right lower abdominal small bowel anastomosis. Findings a ppear somewhat similar to 2020 which may be indicative of slow transit as opposed to true obstruction . Correlate with clinical symptoms. 2. Moderate left-sided hydronephrosis of unknown etiology, unchanged. Recommend urology consultation and evaluation for obstruction at the level of the left UPJ. 3. Chronic large airways disease - Bronchitis Radiation optimization: All CT scans at this facility use at least one of these dose optimization diann hniques: automated exposure control mA and/or kV adjustment per patient size (includes targeted exam s where dose is matched to clinical indication) or iterative reconstruction.
--- NOTE | 2025-05-05 12:17 | ECG ---
Test Date: 2025-05-05 Test Time: 11:24:51 Pat Name: ITZ WHITAKER Department: ER Room: 0218 Gender: M Nurse Leader: DANIELLE : 1955 Requested By: SHWETA YAN Order Number: [id number] Reading MD: Jordi Estrella Measurements Intervals [place] Rate: 98 P: 44 MO: 166 QRS: -59 QRSD: 102 T: 66 QT: 366 QTc: 468 Interpretive Statements Sinus tachycardia Multiple premature complexes, vent & supraven Incomplete RBBB and LAFB Probable lateral infarct, old ST elevation, consider inferior injury Baseline wander in lead(s) I Electronically Signed On 05-11-2025 17:41:34 PDT by Jordi Estrella Please click the below link to view image of tracing.
[2025-05-05 12:34] LABS: Lactic Acid w/Reflex 3.3 mmol/L (0.4-2.0)
[2025-05-05] MEDS: PIPERACILLIN-TAZOB 3.375GM 100 ML IV ONE (13:45)
[2025-05-05] MEDS: POTASSIUM CHL 20MEQ/100ML 100 ML IV ONE (14:09)
--- NOTE | 2025-05-05 16:19 | DVHHP2 ---
History of Present Illness Reason for Visit: Abdominal pain with nausea and vomiting History of Present Illness Chano James is a 69-year-old male with past medical history of colon cancer, bowel resection, [place], CAD status post PTCA in 2012, renal stones, hyperlipidemia, and bladder cancer surgery 3 weeks ago who presents to the ED with abdominal pain that started 1 week ago. He states that he was here a week ago and then discharged on Friday. Reports that his pain is 3/10 sharp and intermittent nature. He states that the pain is worse when there is pressure applied. Patient reports that he has not been on his medications for the last 2 weeks due to all the surgeries he has required and had including his Plavix. Patient denies any chest pain, shortness of breath, fever, chills, lightheadedness, weakness, dizziness, urinary symptoms, diarrhea, chest pain, shortness of breath, recent trauma or injury, recent sick contacts, recent travels, or recent ingestion of spoiled food. Cardiovascular: CAD, [place], hyperipidemia Past Medical History Colon cancer Nephrolithiasis Past Surgical History: Other (Bowel resection, PTCA in 2012, and bladder cancer surgery 3 weeks ago) Family History: Cancer, Other (Mom of colon cancer and dad of unknown cancer per patient) Smoke: <1 pack per day ALCOHOL: none Lives: with Family Domestic Violence: Neg Review of Systems Gastrointestinal: Nausea, Vomiting, Abdominal Pain Allergies: Coded Allergies: NO KNOWN ALLERGIES (Unverified , 03/30/20) Medications Current Medications Medications Dose Ordered Sig/Jon Route Start Time Stop Time Status Last Admin Dose Admin Sodium Chloride 1,000 ml @ 120 mls/hr Q8H20M IV 05/05/25 16:30 UNV Acetaminophen/ Hydrocodone Bitart 1 tab Q4HP PRN PO 05/05/25 16:30 UNV Ondansetron HCl 4 mg Q4HP PRN IV 05/05/25 16:30 UNV Acetaminophen 650 mg Q6HP PRN PO 05/05/25 16:30 UNV Morphine Sulfate 2 mg Q4HPRN PRN IV 05/05/25 16:30 UNV Piperacillin Sod/ Tazobactam Sod 100 ml @ 25 mls/hr Q8HR IV 05/05/25 22:00 UNV Exam Vital Signs Vital Signs Date Time Temp Pulse Resp B/P (MAP) Pulse Ox O2 Delivery O2 Flow Rate FiO2 05/05/25 16:10 75 15 103/60 (74) 92 05/05/25 13:10 97.9 97.9 05/05/25 13:10 Room Air* 0 21 General Appearance: Alert, Oriented X3, Cooperative, No acute distress HEENT: Atraumatic, PERRLA, EOMI, Mucous membr. moist/pink Respiratory: Clear to auscultation, Normal air movement Cardiovascular: Normal S1, Normal S2, No murmurs Abdominal: Normal bowel sounds, Soft Extremities: No cyanosis, No edema, Normal pulses Skin: No significant lesion Neuro: Normal speech, Strength at 5/5 X4 ext, Normal tone, Sensation intact Psych/Mental Status: Mental status NL, Mood NL Labs/Xrays Labs Test 05/05/25 14:41 05/05/25 11:40 Range/Units Lactic Acid Level 1.4 0.4-2.0 mmol/L Troponin I High Sensitivity 4 </=54 ng/L White Blood Count 11.1 H 4.4-10.8 10^3/uL Red Blood Count 5.29 4.5-5.90 10^6/uL Hemoglobin 16.4 13.5-17.5 g/dL Hematocrit 46.5 41.0-53.0 % Mean Corpuscular Volume 88.0 80.0-100.0 fL Mean Corpuscular Hemoglobin 31.0 28.0-32.0 pg Mean Corpuscular Hemoglobin Concent 35.2 32.0-36.0 g/dL Red Cell Distribution Width 14.5 H 11.8-14.3 % Platelet Count 213 140-450 10^3/uL Mean Platelet Volume 8.4 6.9-10.8 fL Neutrophils (%) (Auto) 74.2 37.0-80.0 % Lymphocytes (%) (Auto) 13.1 10.0-50.0 % Monocytes (%) (Auto) 10.3 0.0-12.0 % Eosinophils (%) (Auto) 2.0 0.0-7.0 % Basophils (%) (Auto) 0.4 0.0-2.0 % Neutrophils # (Auto) 8.2 1.6-8.6 10 ^3/uL Lymphocytes # (Auto) 1.5 0.4-5.4 10 ^3/uL Monocytes # (Auto) 1.1 0-1.3 10 ^3/uL Eosinophils # (Auto) 0.2 0-0.8 10 ^3/uL Basophils # (Auto) 0 0-0.2 10 ^3/uL Nucleated Red Blood Cells 0.2 % Urine Color Yellow Yellow Urine Clarity Turbid H Clear Urine pH 5.5 5.0-9.0 Urine Specific [place] 1.031 1.001-1.035 Urine Protein 1+ H Negative Urine Ketones Negative Negative Urine Blood 2+ H Negative /uL Urine Nitrite Negative Negative Urine Bilirubin Negative Negative Urine Urobilinogen Normal Negative mg/dL Urine Leukocyte Esterase Trace Negative /uL Urine RBC 17 0 - 3 /hpf Urine Microscopic WBC 30 H 0-3 /HPF Urine Squamous Epithelial Cells Few <5 /hpf Urine Bacteria None seen None Seen /hpf Urine Mucus Few None Seen Urine Glucose Normal Normal mg/dL Sodium Level 141 136-145 mmol/L Potassium Level 3.1 L 3.5-5.1 mmol/L Chloride Level 99 98-107 mmol/L Carbon Dioxide Level 31 20-31 mmol/L Anion Gap 11 5-15 Blood Urea Nitrogen 28 H 9-23 mg/dL Creatinine 1.18 0.700-1.30 mg/dL Glomerular Filtration Rate Calc 66 >90 mL/min BUN/Creatinine Ratio 23.7 H 10.0-20.0 Serum Glucose 133 H 74-106 mg/dL Calcium Level 9.8 8.7-10.4 mg/dL Total Bilirubin 1.5 H 0.2-1.0 mg/dL Aspartate Amino Transferase (AST) 206 H 13-40 U/L Alanine Aminotransferase (ALT) 428 H 7-40 U/L Alkaline Phosphatase 122 H 46-116 U/L Total Protein 6.8 5.7-8.2 g/dL Albumin 4.6 3.2-4.8 g/dL Lipase 49 12-53 U/L Exam: CT CT AB PEL WO CON-NO ORAL OR IV History: abd pain n/v Comparison Study: CT ABD PELVIS WO CONTRAST on DOS: 03/30/20 TECHNIQUE: Multidetector CT of the abdomen was performed from lung bases to pubic symphysis. Imaging was performed without IV contrast. Axial, coronal and sagittal multiplanar reformats were obtained from the axial data set by the technologist. Radiation Dose Information: CT Dose: CTDI volume is 11.04 mGy. Dose-length product is mGy*cm FINDINGS: Evaluation of solid organs is limited due to lack of intravenous contrast use. Findings: Diffuse bronchial wall thickening with scattered atelectasis- scarring within the image lower lungs. The liver, gallbladder, spleen, pancreas, and adrenal glands are within normal limits. Moderate left-sided hydronephrosis. Punctate left lower pole renal stone. The right kidney and urinary bladder are within normal limits. 1.5 cm left upper pole renal cyst. There is redemonstration of small bowel dilatation of the jejunum and mid- distal ilium. There is no definite sharp transition point; However, the small bowel appears more dilated proximal to the small bowel anastomosis within the right lower abdomen. There is no pneumatosis or free air. Terminal ileum is decompressed. The colon contains contrast though appears decompressed. There is mild presacral thickening with sequela of prior low anterior resection. The bones are demineralized. Mild- moderate degenerative changes within the spine. IMPRESSION: 1. Redemonstration of small bowel dilatation without obvious transition point, though the small bowel appears to be more dilated proximal to the right lower abdominal small bowel anastomosis. Findings appear somewhat similar to 2020 which may be indicative of slow transit as opposed to true obstruction. Correlate with clinical symptoms. 2. Moderate left-sided hydronephrosis of unknown etiology, unchanged. Recommend urology consultation and evaluation for obstruction at the level of the left U PJ. 3. Chronic large airways disease - Bronchitis SEPSIS Sepsis Screen Date sepsis recognized/suspect: May 05, 2025 Time Sepsis recognized/suspect: 1310 Recent Procedure: No On Antibiotic Therapy: No Respiratory Rate >20: No Heart Rate >90: No Temp<36 C (96.8 F) or >38.3 C: No SBP <90 or MAP <65 mmHG: No New Acute Mental Status Change: No Is the patient on CPAP, BIPAP,: No Physician Orders Ct Ab Pel Wo Con-No Oral Or Iv (05/05/25 11:15) Stem Frazer (05/05/25 ) Npo Except For Medications (05/05/25 11:15) Npo (Nothing By Mouth) Diet (05/05/25 Lunch) Saline Lock (05/05/25 11:26) * Surgical Consult (05/05/25 ) Blood Culture (05/05/25 12:43) Admit (05/05/25 16:16) Allergies (05/05/25 16:16) Code Status (05/05/25 16:16) 0.9% Ns 1000 Ml (05/05/25 16:30) Hydrocodone-Acet 5/325mg Tab ([place] 32 (05/05/25 16:30) Ondansetron Hcl (Zofran) (05/05/25 16:30) Complete Blood Count (05/06/25 04:00) Comprehensive Metabolic Panel (05/06/25 04:00) Npo (Nothing By Mouth) Diet (05/05/25 Dinner) Acetaminophen Tablet (Tylenol Tablet) (05/05/25 16:30) Morphine Sulfate Injection (05/05/25 16:30) Sequential Compression Device (05/05/25 ) Zosyn Extended Infusion (05/05/25 22:00) Vital Signs Date Time Temp Pulse Resp B/P (MAP) Pulse Ox O2 Delivery O2 Flow Rate FiO2 05/05/25 16:10 75 15 103/60 (74) 92 05/05/25 15:10 72 18 115/66 (82) 92 05/05/25 14:10 78 17 110/58 (75) 98 05/05/25 13:10 97.9 84 19 112/58 (76) 97.9 05/05/25 13:10 84 19 97 Room Air* 0 21 05/05/25 11:48 74 16 98 Room Air* 0 21 05/05/25 11:24 98 05/05/25 11:11 97.4 107 18 134/63 (86) 95 97.4 Laboratory Tests Test 05/05/25 11:40 05/05/25 14:41 Lactic Acid Level 3.3 mmol/L (0.4-2.0) *H 1.4 mmol/L (0.4-2.0) White Blood Count 11.1 10^3/uL (4.4-10.8) H Medications Medications Dose Ordered Sig/Jon Route Start Time Stop Time Status Last Admin Dose Admin Piperacillin Sod/ Tazobactam Sod 100 ml @ 100 mls/hr ONCE ONCE IV 05/05/25 12:30 05/05/25 13:29 DC 05/05/25 13:45 100 MLS/HR Potassium Chloride 100 ml @ 50 mls/hr ONCE ONCE IV 05/05/25 12:30 05/05/25 14:29 DC 05/05/25 14:09 50 MLS/HR Sodium Chloride 1,000 ml @ 1,000 mls/hr Q1H ONCE IV 05/05/25 11:15 05/05/25 12:14 DC 05/05/25 11:47 1,000 MLS/HR Assessment/Plan Assessment/Plan Assessment Intractable abdominal pain with possible small bowel obstruction Leukocytosis likely due to moderate left-sided hydronephrosis versus UTI Lactic acidosis rule out sepsis Possible bronchitis Hypokalemia Hyperbilirubinemia Transaminitis Tobacco use History of colon cancer History of bladder cancer with tumor removal 3 weeks ago History of hyperlipidemia History of CAD status post PTCA in 2012 History of renal stones History of [place] History of bowel resection Plan Admit to med surge Antiemetics Pain management IV antibiotics-Zosyn Replete lytes UA Blood culture NS 1 L given ED NPO Troponin noted negative x2 Lipase Lactic noted CT abdomen and pelvis noted Kidney ultrasound Consider Urology consult if obstruction noted IV fluids Home medications reconciled DVT prophylaxis-SCDs PUD prophylaxis-PPIs Discussed plan of care with patient nurse General surgery consulted by ED Resume anti coags once cleared by General surgery if no surgery indicated Counseled patient on cessation of tobacco use [id number] Behavior change smoking greater than 10 minutes about use of other options also gave option of nicotine patch [id number] Preventive counseling healthy eating habits, physical activity, and regular checkups Plan discussed with: Patient My Orders Orders - OLVIN SHETH [employer] Procedure Category Date Status Time Admit ADMIT 05/05/25 Transmitted 16:16 Allergies WERO 05/05/25 Transmitted 16:16 Code Status CODE 05/05/25 Transmitted 16:16 0.9% Ns 1000 Ml PHA 05/05/25 Transmitted 16:30 Hydrocodone-Acet PHA 05/05/25 Transmitted 5/325mg Tab ([place] 16:30 Ondansetron Hcl PHA 05/05/25 Transmitted (Zofran) 16:30 Complete Blood Count LAB 05/06/25 Verified 04:00 Comprehensive LAB 05/06/25 Verified Metabolic Panel 04:00 Npo (Nothing By DIET 05/05/25 Transmitted Mouth) Diet Dinner Acetaminophen Tablet PHA 05/05/25 Transmitted (Tylenol Tablet) 16:30 Morphine Sulfate PHA 7/24/25 Transmitted Injection 16:30 Sequential WERO 05/05/25 Transmitted Compression Device Zosyn Extended PHA 05/05/25 Transmitted Infusion 22:00 Date of Service: May 05, 2025 Billing Provider: OLVIN SHETH Common Visit Codes: 75756-[id number] INP/OBS CARE (HIGH) Secondary Visit Codes: [id number] COUNSELING IND, 96752-YCMFT CHNG SMO KATIE >10MIN OLVIN SHETH May 05, 2025 16:19
[2025-05-05] MEDS ORDERED: MORPHINE SULFATE INJ 2 MG/ml SYRG IV PRN (16:30)
[2025-05-05] MEDS ORDERED: ACETAMINOPHEN 325 MG TAB PO PRN (16:30)
[2025-05-05] MEDS ORDERED: HYDROcodone-ACET 5/325MG TAB PO PRN (16:30)
[2025-05-05] MEDS: SODIUM CHLORIDE 0.9% 1,000 ML IV SCH (17:59)
--- NOTE | 2025-05-05 19:16 | DVH ---
RENAL ULTRASOUND REASON FOR EXAM: kidney stone. Left hydronephrosis seen on CT. COMPARISON: None TECHNIQUE: Real-time sector scans in multiple planes were obtained over the kidneys, ureters and lizzy dder. FINDINGS: The right kidney measures 10.9 cm. The left kidney measures 11.3 cm. There is an anechoic 1.3 x 1.3 x 1.2 cm cortical cyst at the superior pole of the left kidney. No solid mass is identifie d. There is no hydronephrosis of the right kidney. There is severe left hydronephrosis.. The urinary bladder is within normal limits. The ureteral jets are not visualized during this study. Incidental note is made of increased echogenicity of the hepatic parenchyma. IMPRESSION: Severe left hydronephrosis. No calculus is identified in either kidney or renal pelvis. Consider CT urogram. Incidental note of increased echogenicity of the hepatic parenchyma. This may be secondary to steatos is or another diffuse hepatic process. Correlate clinically and with liver function tests.
[2025-05-05] MEDS: PIPERACILLIN-TAZOB 3.375GM 100 ML IV SCH (22:04)
[2025-05-05] MEDS: ATORVASTATIN 20 MG TAB PO SCH (22:04)
[2025-05-06] VITALS (8 sets, daily range): BP systolic 104–130; BP diastolic 51–74; PULSE 61–83; RESP 17–20; TEMP 97.3–98.5; O2SAT 92–95
[2025-05-06] MEDS: EZETIMIBE 10 MG TAB PO SCH (10:00)
--- NOTE | 2025-05-06 13:07 | DVH ---
INDICATION: elevated LFTs + N/V TECHNIQUE: Multiple real-time sonographic images were obtained of the right upper quadrant. COMPARISON: None FINDINGS: The liver demonstrates increased echotexture without focal mass lesions. The liver measure s 17 cm. There is no intrahepatic or extrahepatic ductal dilatation. The common duct measures 0.7 cm. Gallbladder sludge is present. The gallbladder wall measures 0.3 cm and is within normal limits. The right kidney measures 11.2 cm. The right kidney is normal in contour, size, and shape. The echoge nicity is normal. There is no hydronephrosis. The pancreas is not well visualized due to overlying bowel gas. IMPRESSION: Hepatic steatosis. Hepatomegaly. Gallbladder sludge is present.
--- NOTE | 2025-05-06 15:33 | DVHPN2 ---
Subjective Patient improving symptoms. Reviewed: H&P Changes from previous H/P or p: No Changes General: Per HPI Gastrointestinal: Nausea, Vomiting, Abdominal Pain Objective Vitals Vital Signs Date Time Temp Pulse Resp B/P (MAP) Pulse Ox O2 Delivery O2 Flow Rate FiO2 05/06/25 13:05 98.4 75 17 113/55 (74) 94 98.4 05/06/25 08:00 Nasal Cannula* 2 28 Intake/Output Intake and Output 05/06/25 07:00 Intake Total 2300 ml Balance 2300 ml Intake Oral 0 ml IV Total 2300 ml # Voids 1 Exam GEN: Healthy appearing, well-developed, NAD. HEENT: NC/AT; MMM. CV: RRR, no m/r/g. LUNGS: CTAB, no w/r/c. ABD: Soft, NT/ND, NBS, no masses or organomegaly. EXT: skin Warm, well perfused. no rashes. No clubbing, cyanosis, or edema. NEURO: Ambulating with no limitations. No focal deficits. Medications Current Medications Medications Dose Ordered Sig/Jon Route Start Time Stop Time Status Last Admin Dose Admin Sodium Chloride 1,000 ml @ 120 mls/hr Q8H20M IV 05/05/25 16:30 05/06/25 06:13 120 MLS/HR Acetaminophen/ Hydrocodone Bitart 1 tab Q4HP PRN PO 05/05/25 16:30 Ondansetron HCl 4 mg Q4HP PRN IV 05/05/25 16:30 Acetaminophen 650 mg Q6HP PRN PO 05/05/25 16:30 Morphine Sulfate 2 mg Q4HPRN PRN IV 05/05/25 16:30 Piperacillin Sod/ Tazobactam Sod 100 ml @ 25 mls/hr Q8HR IV 05/05/25 22:00 05/06/25 14:28 25 MLS/HR EZETIMIBE 10 mg DAILY PO 05/06/25 10:00 Tamsulosin HCl 0.4 mg QPM PO 05/06/25 18:00 Atorvastatin Calcium 40 mg HS PO 05/05/25 22:00 05/05/25 22:04 40 MG Laboratory Results Laboratory Tests 05/05/25 11:40 Urinalysis Test 05/05/25 11:40 Urine Color Yellow (Yellow) Urine Clarity Turbid (Clear) H Urine pH 5.5 (5.0-9.0) Urine Specific [place] 1.031 (1.001-1.035) Urine Protein 1+ (Negative) H Urine Ketones Negative (Negative) Urine Blood 2+ /uL (Negative) H Urine Nitrite Negative (Negative) Urine Bilirubin Negative (Negative) Urine Urobilinogen Normal mg/dL (Negative) Urine Leukocyte Esterase Trace /uL (Negative) Urine RBC 17 /hpf (0 - 3) Urine Microscopic WBC 30 /HPF (0-3) H Urine Squamous Epithelial Cells Few /hpf (<5) Urine Bacteria None seen /hpf (None Seen) Urine Mucus Few (None Seen) Urine Glucose Normal mg/dL (Normal) Microbiology Microbiology Date/Time Source Procedure Growth Status 05/05/25 12:55 Blood Blood Culture - Preliminary NO GROWTH AFTER 24 HOURS OF INCUBATION. Resulted Labs and/or images reviewed: Labs reviewed by me, Image(s) reviewed by me Assessment/Plan Assessment/Plan HPI: Chano James is a 69-year-old male with past medical history of colon cancer, bowel resection, [place], CAD status post PTCA in 2012, renal stones, hyperlipidemia, and bladder cancer surgery 3 weeks ago who presents to the ED with abdominal pain that started 1 week ago. He states that he was here a week ago and then discharged on Friday. Reports that his pain is 3/10 sharp and intermittent nature. He states that the pain is worse when there is pressure applied. Patient reports that he has not been on his medications for the last 2 weeks due to all the surgeries he has required and had including his Plavix. Patient denies any chest pain, shortness of breath, fever, chills, lightheadedness, weakness, dizziness, urinary symptoms, diarrhea, chest pain, shortness of breath, recent trauma or injury, recent sick contacts, recent travels, or recent ingestion of spoiled food. 05/06- CT abdomen and pelvis was concerning for possible acute worsening of chronic transition point. Currently patient complains of left lower quadrant pain near the groin. CT also showed severe hydronephrosis which was confirmed by ultrasound on the left side. Patient recently had a procedure with Urology for bladder mass/stones on left side. patient was given Gastrografin which appears to have cleared out obstruction. UA has mild concerns of possible infection, urine culture pending. Blood cultures are negative. We also note a LFT rise surgery is consulted and they have ordered right upper quadrant ultrasound which shows hepatic steatosis and hepatomegaly with some gallbladder sludge. We will have to trend LFTs. Currently no bile duct dilatation. Patient is now able to tolerate p.o. and endorses test surgery wants to escalate diet. Appears that Urology is likely going to put a nephrostomy tube on left as radiologist is consulted. - 05/06 update: Patient is irritable and upset when approached with consent/discussion for left nephrostomy. He does not want nephrostomy tube right now. Patient is advised to stay 1 night. Today patient will have discussion with neurology. Tomorrow we need to trend LFTs, possibly repeat renal ultrasound to reassess left hydronephrosis. And tomorrow we need to assess p.o. tolerance. If all these are cleared patient could possibly be discharged tomorrow (? Possible Outpatient nephrostomy, pending/defer to Urology). If for any reason patient needs to stay (LFTs rising, SBO recurs/not passing gas, worsening Left hydronephrosis+ssx), if he wants to leave it we will have to be AMA. Intractable abdominal pain with possible partial acute on chronic small bowel obstruction Leukocytosis likely due to moderate left-sided hydronephrosis Acute complicated UTI, possible Lactic acidosis, due to above, resolving Possible bronchitis Hypokalemia , resolved Hyperbilirubinemia Transaminitis Tobacco use History of colon cancer History of bladder cancer with tumor removal 3 weeks ago History of hyperlipidemia History of CAD status post PTCA in 2012 History of renal stones History of [place] History of bowel resection Plan: - IV antibiotics- Zosyn - surgical consult -right upper quadrant ultrasound -urology consult -radiologist consulted-possible left nephrostomy -advancing diet from clear liquid to regular -maintenance IV fluids -continuing home meds- Lipitor, Zetia, Flomax Diet soft DVT prophylaxis Lovenox GI prophylaxis tolerating diet Med surge Full code Plan discussed with: Patient My Orders Orders - YOLIE CRAWFORD MD Procedure Category Date Status Time * Surgical Consult CONS 05/06/25 Transmitted 12:52 * Urology Consult CONS 05/06/25 Transmitted 12:52 Date of Service: May 06, 2025 Billing Provider: YOLIE CRAWFORD MD Common Visit Codes: [id number] INP/OBS CARE(HIGH) YOLIE CRAWFORD MD May 06, 2025 15:33
[2025-05-06] MEDS: SODIUM CHLORIDE 0.9% 1,000 ML IV SCH (15:45)
--- NOTE | 2025-05-06 16:03 | DVHINCON2 ---
Date of service: May 06, 2025 History of Present Illness 69-year-old male with a history of colon cancer status post partial colectomy 25 years ago with multiple episodes of partial small bowel obstruction all resolved with conservative treatment with the last hospitalization earlier this month that also resolved with conservative treatment now complaining of one day history of abdominal pain and nausea and vomiting. Currently patient denies any abdominal pain or nausea. Also had a small bowel movement today. Past Medical History CAD with a history of [place]. history of kidney stones. Past Surgical History Colon cancer status post partial colectomy. Bladder cancer status post TURP Family History: FH: cancer G8 MOTHER G8 FATHER Family History Noncontributory Social History Smokes tobacco. Denies any alcohol or IV drug use. Allergies: Coded Allergies: NO KNOWN ALLERGIES (Unverified , 03/30/20) Home Meds Reported Medications Naproxen (NAPROSYN TABLET) 500 Mg Tb, 1 TAB PO BID, #60 TAB 1 Refill 04/29/25 Tamsulosin Hcl (Tamsulosin Hcl) 0.4 Mg Cap, 1 CAP PO DAILY 04/29/25 Atorvastatin Calcium (ATORVASTATIN CALCIUM) 40 Mg Tab, 1 TAB PO DAILY 04/29/25 Clopidogrel Bisulfate (CLOPIDOGREL) 75 Mg Tab, 75 MG PO DAILY, TAB 04/04/25 Ezetimibe (Zetia) 10 Mg Tab, 10 MG PO DAILY, TAB 02/24/24 Discontinued Reported Medications Atorvastatin Calcium (Lipitor) 40 Mg Tab, 1 TAB PO QPM, #90 TAB 1 Refill 03/31/20 Current Medications Current Medications Medications (Trade) Dose Ordered Sig/Jon Route PRN Reason Start Time Stop Time Status Last Admin Sodium Chloride 1,000 ml @ 120 mls/hr Q8H20M IV 05/05/25 16:30 05/06/25 15:33 DC 05/06/25 06:13 Acetaminophen/ Hydrocodone Bitart ([place]man 5/325MG Tab) 1 tab Q4HP PRN PO MODERATE PAIN (4-6 PAIN SCALE) 05/05/25 16:30 Ondansetron HCl (Zofran) 4 mg Q4HP PRN IV NAUSEA / VOMITING 05/05/25 16:30 Acetaminophen (Tylenol Tablet) 650 mg Q6HP PRN PO PAIN SCALE 1-3 OR TEMP>100.4 05/05/25 16:30 Morphine Sulfate 2 mg Q4HPRN PRN IV SEVERE PAIN (7-10 PAIN SCALE) 05/05/25 16:30 Piperacillin Sod/ Tazobactam Sod 100 ml @ 25 mls/hr Q8HR IV 05/05/25 22:00 05/06/25 14:28 EZETIMIBE (Zetia) 10 mg DAILY PO 05/06/25 10:00 Tamsulosin HCl (Flomax) 0.4 mg QPM PO 05/06/25 18:00 Atorvastatin Calcium (Lipitor) 40 mg HS PO 05/05/25 22:00 05/05/25 22:04 Sodium Chloride 1,000 ml @ 60 mls/hr [id number] IV 05/06/25 15:45 Vital Signs Vital Signs Date Time Temp Pulse Resp B/P (MAP) Pulse Ox O2 Delivery O2 Flow Rate FiO2 05/06/25 13:05 98.4 75 17 113/55 (74) 94 98.4 05/06/25 08:00 Nasal Cannula* 2 28 Physical Exam GEN: Age-appropriate male in no acute distress. Alert. HEENT: Normocephalic atraumatic. Moist mucous membranes. Anicteric sclerae. CV: RRR Respiratory: CTAB ABD: Soft. Nontender nondistended. CT of the abdomen and pelvis: Re demonstration of small bowel dilatation without obvious transition point. Moderate left-sided hydronephrosis of unclear etiology. Bronchitis. Abdominal ultrasound: Hepatic steatosis. Gallbladder sludge. Labs/Diagnostic Data Labs Test 05/05/25 14:41 05/05/25 11:40 Range/Units Lactic Acid Level 1.4 0.4-2.0 mmol/L Troponin I High Sensitivity 4 </=54 ng/L White Blood Count 11.1 H 4.4-10.8 10^3/uL Red Blood Count 5.29 4.5-5.90 10^6/uL Hemoglobin 16.4 13.5-17.5 g/dL Hematocrit 46.5 41.0-53.0 % Mean Corpuscular Volume 88.0 80.0-100.0 fL Mean Corpuscular Hemoglobin 31.0 28.0-32.0 pg Mean Corpuscular Hemoglobin Concent 35.2 32.0-36.0 g/dL Red Cell Distribution Width 14.5 H 11.8-14.3 % Platelet Count 213 140-450 10^3/uL Mean Platelet Volume 8.4 6.9-10.8 fL Neutrophils (%) (Auto) 74.2 37.0-80.0 % Lymphocytes (%) (Auto) 13.1 10.0-50.0 % Monocytes (%) (Auto) 10.3 0.0-12.0 % Eosinophils (%) (Auto) 2.0 0.0-7.0 % Basophils (%) (Auto) 0.4 0.0-2.0 % Neutrophils # (Auto) 8.2 1.6-8.6 10 ^3/uL Lymphocytes # (Auto) 1.5 0.4-5.4 10 ^3/uL Monocytes # (Auto) 1.1 0-1.3 10 ^3/uL Eosinophils # (Auto) 0.2 0-0.8 10 ^3/uL Basophils # (Auto) 0 0-0.2 10 ^3/uL Nucleated Red Blood Cells 0.2 % Urine Color Yellow Yellow Urine Clarity Turbid H Clear Urine pH 5.5 5.0-9.0 Urine Specific [place] 1.031 1.001-1.035 Urine Protein 1+ H Negative Urine Ketones Negative Negative Urine Blood 2+ H Negative /uL Urine Nitrite Negative Negative Urine Bilirubin Negative Negative Urine Urobilinogen Normal Negative mg/dL Urine Leukocyte Esterase Trace Negative /uL Urine RBC 17 0 - 3 /hpf Urine Microscopic WBC 30 H 0-3 /HPF Urine Squamous Epithelial Cells Few <5 /hpf Urine Bacteria None seen None Seen /hpf Urine Mucus Few None Seen Urine Glucose Normal Normal mg/dL Sodium Level 141 136-145 mmol/L Potassium Level 3.1 L 3.5-5.1 mmol/L Chloride Level 99 98-107 mmol/L Carbon Dioxide Level 31 20-31 mmol/L Anion Gap 11 5-15 Blood Urea Nitrogen 28 H 9-23 mg/dL Creatinine 1.18 0.700-1.30 mg/dL Glomerular Filtration Rate Calc 66 >90 mL/min BUN/Creatinine Ratio 23.7 H 10.0-20.0 Serum Glucose 133 H 74-106 mg/dL Calcium Level 9.8 8.7-10.4 mg/dL Total Bilirubin 1.5 H 0.2-1.0 mg/dL Aspartate Amino Transferase (AST) 206 H 13-40 U/L Alanine Aminotransferase (ALT) 428 H 7-40 U/L Alkaline Phosphatase 122 H 46-116 U/L Total Protein 6.8 5.7-8.2 g/dL Albumin 4.6 3.2-4.8 g/dL Lipase 49 12-53 U/L Microbiology Date/Time Source Procedure Growth Status 05/05/25 12:55 Blood Blood Culture - Preliminary NO GROWTH AFTER 24 HOURS OF INCUBATION. Resulted Assessment 1. Clinically improving partial small bowel obstruction. Patient does not want an NG tube wants to try p.o. diet. Plan/Recommendation 1. We will try p.o. challenge. Plan discussed with: Patient MACIEL KOWALSKI MD May 06, 2025 16:03
[2025-05-06] MEDS: TAMSULOSIN HYDROCHLORIDE 0.4 MG CAP PO SCH (19:12)
--- NOTE | 2025-05-06 21:16 | DVHINCON2 ---
Date of service: May 06, 2025 Referring Physician Hospitalist Reason for Consultation Abdominal pain History of Present Illness 69-year-old male with a history bladder cancer and is status post TURBT [address] [place]. Patient reports that he has not been on his medications for the last 2 weeks due to all the surgeries he has required and had including his Plavix. He reports urinary frequency and urgency but denies any visible blood in the urine. Currently, he denies abdominal pain or nausea. He is tolerating oral hydration. CT showed severe hydronephrosis which was confirmed by ultrasound on the left side and he is waiting for IR to place left nephrostomy. Past Medical History CAD, CA,kidney stones Past Surgical History colon cancer with partial colectomy, s/p TURBT 3 weeks ago Family History: FH: cancer G8 MOTHER G8 FATHER Family History Cancer, Other (Mom of colon cancer and dad of unknown cancer per patient) Social History smokes < 1 pack per day Allergies: Coded Allergies: NO KNOWN ALLERGIES (Unverified , 03/30/20) Home Meds Reported Medications Naproxen (NAPROSYN TABLET) 500 Mg Tb, 1 TAB PO BID, #60 TAB 1 Refill 04/29/25 Tamsulosin Hcl (Tamsulosin Hcl) 0.4 Mg Cap, 1 CAP PO DAILY 04/29/25 Atorvastatin Calcium (ATORVASTATIN CALCIUM) 40 Mg Tab, 1 TAB PO DAILY 04/29/25 Clopidogrel Bisulfate (CLOPIDOGREL) 75 Mg Tab, 75 MG PO DAILY, TAB 04/04/25 Ezetimibe (Zetia) 10 Mg Tab, 10 MG PO DAILY, TAB 02/24/24 Discontinued Reported Medications Atorvastatin Calcium (Lipitor) 40 Mg Tab, 1 TAB PO QPM, #90 TAB 1 Refill 03/31/20 Current Medications Current Medications Medications (Trade) Dose Ordered Sig/Jon Route PRN Reason Start Time Stop Time Status Last Admin Piperacillin Sod/ Tazobactam Sod 100 ml @ 25 mls/hr Q8HR IV 05/05/25 22:00 05/06/25 14:28 EZETIMIBE (Zetia) 10 mg DAILY PO 05/06/25 10:00 Tamsulosin HCl (Flomax) 0.4 mg QPM PO 05/06/25 18:00 05/06/25 19:12 Atorvastatin Calcium (Lipitor) 40 mg HS PO 05/05/25 22:00 05/05/25 22:04 Sodium Chloride 1,000 ml @ 60 mls/hr [id number] IV 05/06/25 15:45 Vital Signs Vital Signs Date Time Temp Pulse Resp B/P (MAP) Pulse Ox O2 Delivery O2 Flow Rate FiO2 05/06/25 20:32 97.3 83 20 121/63 (82) 92 97.3 05/06/25 08:00 Nasal Cannula* 2 28 Test 05/05/25 11:40 Urine Color Yellow (Yellow) Urine Clarity Turbid (Clear) H Urine pH 5.5 (5.0-9.0) Urine Specific [place] 1.031 (1.001-1.035) Urine Protein 1+ (Negative) H Urine Ketones Negative (Negative) Urine Blood 2+ /uL (Negative) H Urine Nitrite Negative (Negative) Urine Bilirubin Negative (Negative) Urine Urobilinogen Normal mg/dL (Negative) Urine Leukocyte Esterase Trace /uL (Negative) Urine RBC 17 /hpf (0 - 3) Urine Microscopic WBC 30 /HPF (0-3) H Urine Squamous Epithelial Cells Few /hpf (<5) Urine Bacteria None seen /hpf (None Seen) Urine Mucus Few (None Seen) Urine Glucose Normal mg/dL (Normal) Microbiology Microbiology Date/Time Source Procedure Growth Status 05/05/25 12:55 Blood Blood Culture - Preliminary NO GROWTH AFTER 24 HOURS OF INCUBATION. Resulted Physical Exam Gen: Alert, Oriented X3. Cooperative. In no acute distress Skin: Warm, dry, normal color and texture, no rash. HEENT: Mucous membranes moist and pink. Lungs: Clear to auscultation, Normal air movement Cardiac: Regular rate and rhythm. No murmur Abdomen: Soft, nondistended, mild suprapubic tenderness without rebound or guarding. No CVA tenderness.Pain improved and well controlled. : No scrotal swelling or tenderness. Bladder not palpable [place] [id number] Ph: [phone] DIAGNOSTIC IMAGING Diagnostic Imaging Report : [id number] Signed PATIENT: CHANO WHITAKER ACCT: [id number] UNIT: [id number] : 1955 LOC: ER ROOM / BED: / AGE / SEX: 69 / M ADM STATUS: REG ER SERVICE 1115 ORDERING PHYSICIAN: SHWETA YAN DO PROCEDURE(s): ABPL - CT AB PEL WO CON-NO ORAL OR IV REASON: abd pain n/v ORDER NUMBER(s): [id number], ACCESSION NUMBER(s): [id number] Exam: CT CT AB PEL WO CON-NO ORAL OR IV History: abd pain n/v Comparison Study: CT ABD PELVIS WO CONTRAST on DOS: 03/30/20 TECHNIQUE: Multidetector CT of the abdomen was performed from lung bases to pubic symphysis. Imaging was performed without IV contrast. Axial, coronal and sagittal multiplanar reformats were obtained from the axial data set by the technologist. Radiation Dose Information: CT Dose: CTDI volume is 11.04 mGy. Dose-length product is mGy*cm FINDINGS: Evaluation of solid organs is limited due to lack of intravenous contrast use. Findings: Diffuse bronchial wall thickening with scattered atelectasis- scarring within the image lower lungs. The liver, gallbladder, spleen, pancreas, and adrenal glands are within normal limits. Moderate left-sided hydronephrosis. Punctate left lower pole renal stone. The right kidney and urinary bladder are within normal limits. 1.5 cm left upper pole renal cyst. There is redemonstration of small bowel dilatation of the jejunum and mid- distal ilium. There is no definite sharp transition point; However, the small bowel appears more dilated proximal to the small bowel anastomosis within the right lower abdomen. There is no pneumatosis or free air. Terminal ileum is decompressed. The colon contains contrast though appears decompressed. There is mild presacral thickening with sequela of prior low anterior resection. The bones are demineralized. Mild- moderate degenerative changes within the spine. IMPRESSION: 1. Redemonstration of small bowel dilatation without obvious transition point, though the small bowel appears to be more dilated proximal to the right lower abdominal small bowel anastomosis. Findings appear somewhat similar to 2020 which may be indicative of slow transit as opposed to true obstruction. Correlate with clinical symptoms. 2. Moderate left-sided hydronephrosis of unknown etiology, unchanged. Recommend urology consultation and evaluation for obstruction at the level of the left UPJ. 3. Chronic large airways disease - Bronchitis Radiation optimization: All CT scans at this facility use at least one of these dose optimization techniques: automated exposure control mA and/or kV adjustment per patient size (includes targeted exams where dose is matched to clinical indication) or iterative reconstruction. ATED BY: MICHELLE BURROWS MD DICTATED DATE/TIME: 05/05/251214 SIGNED BY: MICHELLE BURROWS MD SIGNED DATE/TIME: 05/05/251214 CC: [place] [id number] Ph: [phone] DIAGNOSTIC IMAGING Diagnostic Imaging Report : [id number] Signed PATIENT: CHANO WHITAKER ACCT: [id number] UNIT: [id number] : 1955 LOC: CENTRAL ROOM / BED: [facility] / A AGE / SEX: 69 / M ADM STATUS: ADM IN SERVICE 164 ORDERING PHYSICIAN: OLVIN SHETH PROCEDURE(s): KIDUS - KIDNEY REASON: kidney stone ORDER NUMBER(s): [id number], ACCESSION NUMBER(s): [id number] RENAL ULTRASOUND REASON FOR EXAM: kidney stone. Left hydronephrosis seen on CT. COMPARISON: None TECHNIQUE: Real-time sector scans in multiple planes were obtained over the kidneys, ureters and bladder. FINDINGS: The right kidney measures 10.9 cm. The left kidney measures 11.3 cm. There is an anechoic 1.3 x 1.3 x 1.2 cm cortical cyst at the superior pole of the left kidney. No solid mass is identified. There is no hydronephrosis of the right kidney. There is severe left hydronephrosis.. The urinary bladder is with in normal limits. The ureteral jets are not visualized during this study. Incidental note is made of increased echogenicity of the hepatic parenchyma. IMPRESSION: Severe left hydronephrosis. No calculus is identified in either kidney or renal pelvis. Consider CT urogram. Incidental note of increased echogenicity of the hepatic parenchyma. This may be secondary to steatosis or another diffuse hepatic process. Correlate clinically and with liver function tests. ATED BY: CHANO SHEPHERD MD DICTATED DATE/TIME: 05/05/251913 SIGNED BY: CHANO SHEPHERD MD SIGNED DATE/TIME: 05/05/251913 Labs/Diagnostic Data Labs Test 05/05/25 14:41 05/05/25 11:40 Range/Units Lactic Acid Level 1.4 0.4-2.0 mmol/L Troponin I High Sensitivity 4 </=54 ng/L White Blood Count 11.1 H 4.4-10.8 10^3/uL Red Blood Count 5.29 4.5-5.90 10^6/uL Hemoglobin 16.4 13.5-17.5 g/dL Hematocrit 46.5 41.0-53.0 % Mean Corpuscular Volume 88.0 80.0-100.0 fL Mean Corpuscular Hemoglobin 31.0 28.0-32.0 pg Mean Corpuscular Hemoglobin Concent 35.2 32.0-36.0 g/dL Red Cell Distribution Width 14.5 H 11.8-14.3 % Platelet Count 213 140-450 10^3/uL Mean Platelet Volume 8.4 6.9-10.8 fL Neutrophils (%) (Auto) 74.2 37.0-80.0 % Lymphocytes (%) (Auto) 13.1 10.0-50.0 % Monocytes (%) (Auto) 10.3 0.0-12.0 % Eosinophils (%) (Auto) 2.0 0.0-7.0 % Basophils (%) (Auto) 0.4 0.0-2.0 % Neutrophils # (Auto) 8.2 1.6-8.6 10 ^3/uL Lymphocytes # (Auto) 1.5 0.4-5.4 10 ^3/uL Monocytes # (Auto) 1.1 0-1.3 10 ^3/uL Eosinophils # (Auto) 0.2 0-0.8 10 ^3/uL Basophils # (Auto) 0 0-0.2 10 ^3/uL Nucleated Red Blood Cells 0.2 % Urine Color Yellow Yellow Urine Clarity Turbid H Clear Urine pH 5.5 5.0-9.0 Urine Specific [place] 1.031 1.001-1.035 Urine Protein 1+ H Negative Urine Ketones Negative Negative Urine Blood 2+ H Negative /uL Urine Nitrite Negative Negative Urine Bilirubin Negative Negative Urine Urobilinogen Normal Negative mg/dL Urine Leukocyte Esterase Trace Negative /uL Urine RBC 17 0 - 3 /hpf Urine Microscopic WBC 30 H 0-3 /HPF Urine Squamous Epithelial Cells Few <5 /hpf Urine Bacteria None seen None Seen /hpf Urine Mucus Few None Seen Urine Glucose Normal Normal mg/dL Sodium Level 141 136-145 mmol/L Potassium Level 3.1 L 3.5-5.1 mmol/L Chloride Level 99 98-107 mmol/L Carbon Dioxide Level 31 20-31 mmol/L Anion Gap 11 5-15 Blood Urea Nitrogen 28 H 9-23 mg/dL Creatinine 1.18 0.700-1.30 mg/dL Glomerular Filtration Rate Calc 66 >90 mL/min BUN/Creatinine Ratio 23.7 H 10.0-20.0 Serum Glucose 133 H 74-106 mg/dL Calcium Level 9.8 8.7-10.4 mg/dL Total Bilirubin 1.5 H 0.2-1.0 mg/dL Aspartate Amino Transferase (AST) 206 H 13-40 U/L Alanine Aminotransferase (ALT) 428 H 7-40 U/L Alkaline Phosphatase 122 H 46-116 U/L Total Protein 6.8 5.7-8.2 g/dL Albumin 4.6 3.2-4.8 g/dL Lipase 49 12-53 U/L Microbiology Date/Time Source Procedure Growth Status 05/05/25 12:55 Blood Blood Culture - Preliminary NO GROWTH AFTER 24 HOURS OF INCUBATION. Resulted Assessment Bladder cancer with TURBT 3 weeks ago Severe left hydronephrosis, likely due to obstructive uropathy Severe abdominal pain on admission, now well controlled with medical management Preserved renal function, no evidence of infection Urologic obstruction requiring decompression Problems(with codes): (1) Hydroureteronephrosis (2) Bladder mass (3) UTI (urinary tract infection) (4) Hematuria Plan/Recommendation Obtain TURBT pathology report once available to determine tumor grade, stage, and need for further treatment Nephrostomy placement by IR for decompression and follow-up with urology as outpatient Continue pain management as needed Monitor urine output, Creatinine, and electrolyte status Plan discussed with: Patient BRYAN BUCKNER [employer] OFFICER May 06, 2025 21:16
[2025-05-06] MEDS: ONDANSETRON HCL 4 MG/2 ML VIAL IV PRN (22:01)
[2025-05-07] VITALS (7 sets, daily range): BP systolic 105–131; BP diastolic 42–66; PULSE 64–78; RESP 16–20; TEMP 97.3–98.3; O2SAT 90–95
--- NOTE | 2025-05-07 11:57 | DVHPN2 ---
Subjective Patient improving symptoms. Reviewed: H&P Changes from previous H/P or p: No Changes General: Per HPI Gastrointestinal: Nausea, Vomiting, Abdominal Pain Objective Vitals Vital Signs Date Time Temp Pulse Resp B/P (MAP) Pulse Ox O2 Delivery O2 Flow Rate FiO2 05/07/25 08:41 97.3 69 17 131/63 (85) 90 97.3 05/07/25 08:05 Room Air* 0 21 Intake/Output Intake and Output 05/07/25 07:00 Intake Total 1040 ml Balance 1040 ml Intake Oral 240 ml IV Total 800 ml # Voids 4 # Bowel Movements 3 Exam GEN: Healthy appearing, well-developed, NAD. HEENT: NC/AT; MMM. CV: RRR, no m/r/g. LUNGS: CTAB, no w/r/c. ABD: Soft, NT/ND, NBS, no masses or organomegaly. EXT: skin Warm, well perfused. no rashes. No clubbing, cyanosis, or edema. NEURO: Ambulating with no limitations. No focal deficits. Medications Current Medications Medications Dose Ordered Sig/Jon Route Start Time Stop Time Status Last Admin Dose Admin Acetaminophen/ Hydrocodone Bitart 1 tab Q4HP PRN PO 05/05/25 16:30 Ondansetron HCl 4 mg Q4HP PRN IV 05/05/25 16:30 05/06/25 22:01 4 MG Acetaminophen 650 mg Q6HP PRN PO 05/05/25 16:30 Morphine Sulfate 2 mg Q4HPRN PRN IV 05/05/25 16:30 Piperacillin Sod/ Tazobactam Sod 100 ml @ 25 mls/hr Q8HR IV 05/05/25 22:00 05/07/25 05:52 25 MLS/HR EZETIMIBE 10 mg DAILY PO 05/06/25 10:00 Tamsulosin HCl 0.4 mg QPM PO 05/06/25 18:00 05/06/25 19:12 0.4 MG Atorvastatin Calcium 40 mg HS PO 05/05/25 22:00 05/06/25 22:01 40 MG Sodium Chloride 1,000 ml @ 60 mls/hr [id number] IV 05/06/25 15:45 Laboratory Results Laboratory Tests 05/05/25 11:40 Urinalysis Test 05/05/25 11:40 Urine Color Yellow (Yellow) Urine Clarity Turbid (Clear) H Urine pH 5.5 (5.0-9.0) Urine Specific [place] 1.031 (1.001-1.035) Urine Protein 1+ (Negative) H Urine Ketones Negative (Negative) Urine Blood 2+ /uL (Negative) H Urine Nitrite Negative (Negative) Urine Bilirubin Negative (Negative) Urine Urobilinogen Normal mg/dL (Negative) Urine Leukocyte Esterase Trace /uL (Negative) Urine RBC 17 /hpf (0 - 3) Urine Microscopic WBC 30 /HPF (0-3) H Urine Squamous Epithelial Cells Few /hpf (<5) Urine Bacteria None seen /hpf (None Seen) Urine Mucus Few (None Seen) Urine Glucose Normal mg/dL (Normal) Microbiology Microbiology Date/Time Source Procedure Growth Status 05/05/25 12:55 Blood Blood Culture - Preliminary NO GROWTH AFTER 24 HOURS OF INCUBATION. Resulted Labs and/or images reviewed: Labs reviewed by me, Image(s) reviewed by me Assessment/Plan Assessment/Plan HPI: Chano James is a 69-year-old male with past medical history of colon cancer, bowel resection, MA, CAD status post PTCA in 2012, renal stones, hyperlipidemia, and bladder cancer surgery 3 weeks ago who presents to the ED with abdominal pain that started 1 week ago. He states that he was here a week ago and then discharged on Friday. Reports that his pain is 3/10 sharp and intermittent nature. He states that the pain is worse when there is pressure applied. Patient reports that he has not been on his medications for the last 2 weeks due to all the surgeries he has required and had including his Plavix. Patient denies any chest pain, shortness of breath, fever, chills, lightheadedness, weakness, dizziness, urinary symptoms, diarrhea, chest pain, shortness of breath, recent trauma or injury, recent sick contacts, recent travels, or recent ingestion of spoiled food. 05/06- CT abdomen and pelvis was concerning for possible acute worsening of chronic transition point. Currently patient complains of left lower quadrant pain near the groin. CT also showed severe hydronephrosis which was confirmed by ultrasound on the left side. Patient recently had a procedure with Urology for bladder mass/stones on left side. patient was given Gastrografin which appears to have cleared out obstruction. UA has mild concerns of possible infection, urine culture pending. Blood cultures are negative. We also note a LFT rise surgery is consulted and they have ordered right upper quadrant ultrasound which shows hepatic steatosis and hepatomegaly with some gallbladder sludge. We will have to trend LFTs. Currently no bile duct dilatation. Patient is now able to tolerate p.o. and endorses test surgery wants to escalate diet. Appears that Urology is likely going to put a nephrostomy tube on left as radiologist is consulted. - 05/06 update: Patient is irritable and upset when approached with consent/discussion for left nephrostomy. He does not want nephrostomy tube right now. Patient is advised to stay 1 night. Today patient will have discussion with neurology. Tomorrow we need to trend LFTs, possibly repeat renal ultrasound to reassess left hydronephrosis. And tomorrow we need to assess p.o. tolerance. If all these are cleared patient could possibly be discharged tomorrow (? Possible Outpatient nephrostomy, pending/defer to Urology). If for any reason patient needs to stay (LFTs rising, SBO recurs/not passing gas, worsening Left hydronephrosis+ssx), if he wants to leave it we will have to be AMA. 05/07: Appears that urology plan is to keep patient for left nephrostomy until Friday. If patient wants to AMA we will have no choice but let him go. No further efforts to for sway decision. Intractable abdominal pain with possible partial acute on chronic small bowel obstruction Leukocytosis likely due to moderate left-sided hydronephrosis Acute complicated UTI, possible Lactic acidosis, due to above, resolving Possible bronchitis Hypokalemia , resolved Hyperbilirubinemia Transaminitis Tobacco use History of colon cancer History of bladder cancer with tumor removal 3 weeks ago History of hyperlipidemia History of CAD status post PTCA in 2013 History of renal stones History of MA History of bowel resection Plan: - IV antibiotics- Zosyn - surgical consult -right upper quadrant ultrasound -urology consult -radiologist consulted-possible left nephrostomy -advancing diet from clear liquid to regular -maintenance IV fluids -continuing home meds- Lipitor, Zetia, Flomax Diet soft DVT prophylaxis Lovenox GI prophylaxis tolerating diet Med surge Full code Plan discussed with: Patient My Orders Orders - YOLIE CRAWFORD MD Procedure Category Date Status Time * Surgical Consult CONS 05/06/25 Transmitted 12:52 * Urology Consult CONS 05/06/25 Transmitted 12:52 Sodium Chloride 0.9% PHA 05/06/25 In Process 15:45 Complete Blood Count LAB 05/07/25 Logged 04:00 Comprehensive LAB 05/07/25 Logged Metabolic Panel 04:00 Mrsa Screen KAT 05/06/25 In Process 06:20 Date of Service: May 07, 2025 Billing Provider: YOLIE CRAWFORD MD Common Visit Codes: [id number] INP/OBS CARE(HIGH) YOLIE CRAWFORD MD May 07, 2025 11:57
[2025-05-07] MEDS: LOPERAMIDE HCL 2 MG CAP/TAB PO ONE (13:11)
--- NOTE | 2025-05-07 14:11 | DVHPN2 ---
Progress Note - Dictate Date Seen: May 07, 2025 Medical Necessity Reason Pt with a Central, PICC or Fol: No Subjective E: no major events o/n. c/o diarrhea. jaqueline po. vital signs Vital Sign Date Time Temp Pulse Resp B/P (MAP) Pulse Ox O2 Delivery O2 Flow Rate FiO2 05/07/25 13:16 97.8 75 16 106/58 (74) 93 97.8 05/07/25 08:05 Room Air* 0 21 Total Intake and Output 05/06/25 05/06/25 05/07/25 15:00 23:00 07:00 Intake Total 100 ml 100 ml 840 ml Balance 100 ml 100 ml 840 ml medications Current Medications Medications Dose Ordered Sig/Jon Route Start Time Stop Time Status Last Admin Dose Admin Acetaminophen/ Hydrocodone Bitart 1 tab Q4HP PRN PO 05/05/25 16:30 Ondansetron HCl 4 mg Q4HP PRN IV 05/05/25 16:30 05/06/25 22:01 4 MG Acetaminophen 650 mg Q6HP PRN PO 05/05/25 16:30 Morphine Sulfate 2 mg Q4HPRN PRN IV 05/05/25 16:30 Piperacillin Sod/ Tazobactam Sod 100 ml @ 25 mls/hr Q8HR IV 05/05/25 22:00 05/07/25 13:11 25 MLS/HR EZETIMIBE 10 mg DAILY PO 05/06/25 10:00 Tamsulosin HCl 0.4 mg QPM PO 05/06/25 18:00 05/06/25 19:12 0.4 MG Atorvastatin Calcium 40 mg HS PO 05/05/25 22:00 05/06/25 22:01 40 MG Sodium Chloride 1,000 ml @ 60 mls/hr [id number] IV 05/06/25 15:45 Cholestyramine Resin 4 gm Q12HR@11,23 GT 05/07/25 23:00 05/09/25 22:59 objective GEN: NAD ABD: soft. NT/ND laboratory and microbiology Laboratory Tests 05/05/25 11:40 Test 05/05/25 11:40 Range/Units Serum Glucose 133 H 74-106 mg/dL Assessment/Plan A: 1. resolved pSBO P: 1. surgery signing off. Plan discussed with: Patient MACIEL KOWALSKI MD May 07, 2025 14:11
[2025-05-07] MEDS: CHOLESTYRAMINE 4 GM POWDER GT SCH (22:53)
[2025-05-08 05:00] VITALS: BP 114/74; PULSE 74; RESP 18; TEMP 98.6; O2SAT 96
[2025-05-08 09:00] VITALS: BP 127/77; PULSE 69; RESP 16; TEMP 98; O2SAT 91
[2025-05-08 13:00] VITALS: BP 120/83; PULSE 74; RESP 16; TEMP 98.8; O2SAT 92
--- NOTE | 2025-05-08 15:41 | DVHPN2 ---
Subjective Patient improving symptoms. Reviewed: H&P Changes from previous H/P or p: No Changes General: Per HPI Gastrointestinal: Nausea, Vomiting, Abdominal Pain Objective Vitals Vital Signs Date Time Temp Pulse Resp B/P (MAP) Pulse Ox O2 Delivery O2 Flow Rate FiO2 05/08/25 13:00 98.8 74 16 120/83 (95) 92 98.8 05/08/25 08:05 Room Air* 0 21 Intake/Output Intake and Output 05/08/25 07:00 Intake Total 1200 ml Balance 1200 ml Intake Oral 1200 ml # Voids 5 # Bowel Movements 10 Exam GEN: Healthy appearing, well-developed, NAD. HEENT: NC/AT; MMM. CV: RRR, no m/r/g. LUNGS: CTAB, no w/r/c. ABD: Soft, NT/ND, NBS, no masses or organomegaly. EXT: skin Warm, well perfused. no rashes. No clubbing, cyanosis, or edema. NEURO: Ambulating with no limitations. No focal deficits. Medications Current Medications Medications Dose Ordered Sig/Jon Route Start Time Stop Time Status Last Admin Dose Admin Acetaminophen/ Hydrocodone Bitart 1 tab Q4HP PRN PO 05/05/25 16:30 Ondansetron HCl 4 mg Q4HP PRN IV 05/05/25 16:30 05/06/25 22:01 4 MG Acetaminophen 650 mg Q6HP PRN PO 05/05/25 16:30 Morphine Sulfate 2 mg Q4HPRN PRN IV 05/05/25 16:30 Piperacillin Sod/ Tazobactam Sod 100 ml @ 25 mls/hr Q8HR IV 05/05/25 22:00 05/08/25 13:28 25 MLS/HR EZETIMIBE 10 mg DAILY PO 05/06/25 10:00 05/08/25 09:07 10 MG Tamsulosin HCl 0.4 mg QPM PO 05/06/25 18:00 05/07/25 18:06 0.4 MG Atorvastatin Calcium 40 mg HS PO 05/05/25 22:00 05/07/25 21:45 40 MG Sodium Chloride 1,000 ml @ 60 mls/hr [id number] IV 05/06/25 15:45 Cholestyramine Resin 4 gm Q12HR@11,23 GT 05/07/25 23:00 05/09/25 22:59 Laboratory Results Laboratory Tests 05/05/25 11:40 Urinalysis Test 05/05/25 11:40 Urine Color Yellow (Yellow) Urine Clarity Turbid (Clear) H Urine pH 5.5 (5.0-9.0) Urine Specific [place] 1.031 (1.001-1.035) Urine Protein 1+ (Negative) H Urine Ketones Negative (Negative) Urine Blood 2+ /uL (Negative) H Urine Nitrite Negative (Negative) Urine Bilirubin Negative (Negative) Urine Urobilinogen Normal mg/dL (Negative) Urine Leukocyte Esterase Trace /uL (Negative) Urine RBC 17 /hpf (0 - 3) Urine Microscopic WBC 30 /HPF (0-3) H Urine Squamous Epithelial Cells Few /hpf (<5) Urine Bacteria None seen /hpf (None Seen) Urine Mucus Few (None Seen) Urine Glucose Normal mg/dL (Normal) Microbiology Microbiology Date/Time Source Procedure Growth Status 05/07/25 15:31 Nose MRSA Screen - Final Complete 05/05/25 12:55 Blood Blood Culture - Preliminary NO GROWTH AFTER 72 HOURS OF INCUBATION. Resulted Labs and/or images reviewed: Labs reviewed by me, Image(s) reviewed by me Assessment/Plan Assessment/Plan HPI: Chano James is a 69-year-old male with past medical history of colon cancer, bowel resection, [place], CAD status post PTCA in 2012, renal stones, hyperlipidemia, and bladder cancer surgery 3 weeks ago who presents to the ED with abdominal pain that started 1 week ago. He states that he was here a week ago and then discharged on Friday. Reports that his pain is 3/10 sharp and intermittent nature. He states that the pain is worse when there is pressure applied. Patient reports that he has not been on his medications for the last 2 weeks due to all the surgeries he has required and had including his Plavix. Patient denies any chest pain, shortness of breath, fever, chills, lightheadedness, weakness, dizziness, urinary symptoms, diarrhea, chest pain, shortness of breath, recent trauma or injury, recent sick contacts, recent travels, or recent ingestion of spoiled food. 05/06- CT abdomen and pelvis was concerning for possible acute worsening of chronic transition point. Currently patient complains of left lower quadrant pain near the groin. CT also showed severe hydronephrosis which was confirmed by ultrasound on the left side. Patient recently had a procedure with Urology for bladder mass/stones on left side. patient was given Gastrografin which appears to have cleared out obstruction. UA has mild concerns of possible infection, urine culture pending. Blood cultures are negative. We also note a LFT rise surgery is consulted and they have ordered right upper quadrant ultrasound which shows hepatic steatosis and hepatomegaly with some gallbladder sludge. We will have to trend LFTs. Currently no bile duct dilatation. Patient is now able to tolerate p.o. and endorses test surgery wants to escalate diet. Appears that Urology is likely going to put a nephrostomy tube on left as radiologist is consulted. - 05/06 update: Patient is irritable and upset when approached with consent/discussion for left nephrostomy. He does not want nephrostomy tube right now. Patient is advised to stay 1 night. Today patient will have discussion with neurology. Tomorrow we need to trend LFTs, possibly repeat renal ultrasound to reassess left hydronephrosis. And tomorrow we need to assess p.o. tolerance. If all these are cleared patient could possibly be discharged tomorrow (? Possible Outpatient nephrostomy, pending/defer to Urology). If for any reason patient needs to stay (LFTs rising, SBO recurs/not passing gas, worsening Left hydronephrosis+ssx), if he wants to leave it we will have to be AMA. 05/07: Appears that urology plan is to keep patient for left nephrostomy until Friday. If patient wants to AMA we will have no choice but let him go. No further efforts to for sway decision. 05/08: Patient stable. Nephrostomy tomorrow. Labs CBC today, a.m. labs tomorrow. Continue present management. Intractable abdominal pain with possible partial acute on chronic small bowel obstruction Leukocytosis likely due to moderate left-sided hydronephrosis Acute complicated UTI, possible Lactic acidosis, due to above, resolving Possible bronchitis Hypokalemia , resolved Hyperbilirubinemia Transaminitis Tobacco use History of colon cancer History of bladder cancer with tumor removal 3 weeks ago History of hyperlipidemia History of CAD status post PTCA in 2013 History of renal stones History of ND History of bowel resection Plan: - IV antibiotics- Zosyn - surgical consult -right upper quadrant ultrasound -urology consult -radiologist consulted-possible left nephrostomy -advancing diet from clear liquid to regular -maintenance IV fluids -continuing home meds- Lipitor, Zetia, Flomax Diet soft DVT prophylaxis Lovenox GI prophylaxis tolerating diet Med surge Full code Plan discussed with: Patient Date of Service: May 08, 2025 Billing Provider: YOLIE CRAWFORD MD Common Visit Codes: [id number] INP/OBS CARE(HIGH) YOLIE CRAWFORD MD May 08, 2025 15:41
[2025-05-08 17:00] VITALS: BP 112/69; PULSE 69; RESP 16; TEMP 99.6; O2SAT 92
[2025-05-08 20:00] VITALS: PULSE 71; RESP 18; O2SAT 93
[2025-05-08 20:58] VITALS: BP 137/75; PULSE 71; RESP 17; TEMP 98.7; O2SAT 93
[2025-05-09] VITALS (12 sets, daily range): BP systolic 111–146; BP diastolic 60–85; PULSE 60–73; RESP 15–18; TEMP 97.6–98.7; O2SAT 93–97
[2025-05-09 10:01] LABS: INR 1.03 (0.9-1.15); Prothrombin Time 10.9 sec (9.3-11.8)
[2025-05-09] MEDS: IOHEXOL 350 MG/ML 100ML IJ ONE (10:38)
[2025-05-09] MEDS: LIDOCAINE 2%HCL (LOCAL ANESTH.) INJ 20ML MDV ONE (10:46)
[2025-05-09] MEDS: fentaNYL CITRATE 100 MCG/2 ML VL ONE (10:47)
[2025-05-09] MEDS: MIDAZOLAM HCL 2MG/2ML 2ml VIAL (1mg/ml) ONE (10:47)
--- NOTE | 2025-05-09 11:40 | DVH ---
US KIDNEY HISTORY: F/U ON LT HYDRO COMPARISON: US KIDNEY on DOS: 05/05/25 TECHNIQUE: Transverse and longitudinal grayscale and color doppler images were obtained of the kidney s . FINDINGS: Left kidney: Similar persistent left hydronephrosis. IMPRESSION: Similar persistent left hydronephrosis.
--- NOTE | 2025-05-09 12:28 | DVH ---
US US GUIDANCE FOR NEEDLE PLACEME HISTORY: Nephro Tube Insertion due to obstructive uropathy. PROCEDURE: Informed consent was obtained. The patient was placed on the fluoroscopic table in a prone position and IV sedation administered. The left flank was prepped with chlorhexidine which was allow ed to dry and draped in the usual sterile fashion. Time out was performed and the soft tissues infilt rated with 1% lidocaine local anesthetic. Utilizing ultrasound guidance, a 21 gauge Accu Stick needle was advanced from a posterolateral approach into an lower pole calyx, and a small amount of contrast was injected under fluoroscopy to confirm positioning. Over a mandril wire, exchange was made to a n on-vascular access set, through which was advanced an 0.035 wire. Following serial dilation, an 8.5 F rench multipurpose nephrostomy catheter was placed with tip pigtailed within the renal pelvis. Positi on was confirmed with antegrade nephrostogram. The catheter was secured in place and connected to gra vity drainage. A sterile dressing was applied. No immediate complication was identified. DAP 161 FLUOROSCOPY TIME: 1.3 minutes. CONTRAST USED: 15 mL . SEDATION: Dr. Geoffrey Pierce was personally responsible for the administration of moderate sedation during the procedure performed, including the use of an independent trained observer who had no other duties during the procedure. The drugs utilized were IV fentanyl and versed (see nursing log for details). The total time of supervision by the attending physician was approximately 30 minutes. FINDINGS: Dilated left renal collecting system involving the calyces/renal pelvis/ureter. New 8.5 irish nephrostomy tube via a posterior lower pole calyceal access, with loop coiled within the renal pelvis. IMPRESSION: Left hydronephrosis, status post placement of 8.5 irish left percutaneous nephrostomy catheter. PLAN: Routine catheter care.
--- NOTE | 2025-05-09 12:28 | DVH ---
US US GUIDANCE FOR NEEDLE PLACEME HISTORY: Nephro Tube Insertion due to obstructive uropathy. PROCEDURE: Informed consent was obtained. The patient was placed on the fluoroscopic table in a prone position and IV sedation administered. The left flank was prepped with chlorhexidine which was allow ed to dry and draped in the usual sterile fashion. Time out was performed and the soft tissues infilt rated with 1% lidocaine local anesthetic. Utilizing ultrasound guidance, a 21 gauge Accu Stick needle was advanced from a posterolateral approach into an lower pole calyx, and a small amount of contrast was injected under fluoroscopy to confirm positioning. Over a mandril wire, exchange was made to a n on-vascular access set, through which was advanced an 0.035 wire. Following serial dilation, an 8.5 F rench multipurpose nephrostomy catheter was placed with tip pigtailed within the renal pelvis. Positi on was confirmed with antegrade nephrostogram. The catheter was secured in place and connected to gra vity drainage. A sterile dressing was applied. No immediate complication was identified. DAP 161 FLUOROSCOPY TIME: 1.3 minutes. CONTRAST USED: 15 mL . SEDATION: Dr. Geoffrey Pierce was personally responsible for the administration of moderate sedation during the procedure performed, including the use of an independent trained observer who had no other duties during the procedure. The drugs utilized were IV fentanyl and versed (see nursing log for details). The total time of supervision by the attending physician was approximately 30 minutes. FINDINGS: Dilated left renal collecting system involving the calyces/renal pelvis/ureter. New 8.5 chinese nephrostomy tube via a posterior lower pole calyceal access, with loop coiled within the renal pelvis. IMPRESSION: Left hydronephrosis, status post placement of 8.5 chinese left percutaneous nephrostomy catheter. PLAN: Routine catheter care.
--- NOTE | 2025-05-09 15:47 | DVHDS2 ---
Discharge Summary Date of Admission May 05, 2025 at 16:16 Date of Discharge: May 09, 2025 Labs/Diagnostic Data: Laboratory Results Test 05/09/25 09:01 05/05/25 14:41 05/05/25 11:40 Prothrombin Time 10.9 sec (9.3-11.8) Prothrombin Time INR 1.03 (0.9-1.15) Lactic Acid Level 1.4 mmol/L (0.4-2.0) Troponin I High Sensitivity 4 ng/L (</=54) White Blood Count 11.1 10^3/uL (4.4-10.8) Red Blood Count 5.29 10^6/uL (4.5-5.90) Hemoglobin 16.4 g/dL (13.5-17.5) Hematocrit 46.5 % (41.0-53.0) Mean Corpuscular Volume 88.0 fL (80.0-100.0) Mean Corpuscular Hemoglobin 31.0 pg (28.0-32.0) Mean Corpuscular Hemoglobin Concent 35.2 g/dL (32.0-36.0) Red Cell Distribution Width 14.5 % (11.8-14.3) Platelet Count 213 10^3/uL (140-450) Mean Platelet Volume 8.4 fL (6.9-10.8) Neutrophils (%) (Auto) 74.2 % (37.0-80.0) Lymphocytes (%) (Auto) 13.1 % (10.0-50.0) Monocytes (%) (Auto) 10.3 % (0.0-12.0) Eosinophils (%) (Auto) 2.0 % (0.0-7.0) Basophils (%) (Auto) 0.4 % (0.0-2.0) Neutrophils # (Auto) 8.2 10 ^3/uL (1.6-8.6) Lymphocytes # (Auto) 1.5 10 ^3/uL (0.4-5.4) Monocytes # (Auto) 1.1 10 ^3/uL (0-1.3) Eosinophils # (Auto) 0.2 10 ^3/uL (0-0.8) Basophils # (Auto) 0 10 ^3/uL (0-0.2) Nucleated Red Blood Cells 0.2 % Urine Color Yellow (Yellow) Urine Clarity Turbid (Clear) Urine pH 5.5 (5.0-9.0) Urine Specific [place] 1.031 (1.001-1.035) Urine Protein 1+ (Negative) Urine Ketones Negative (Negative) Urine Blood 2+ /uL (Negative) Urine Nitrite Negative (Negative) Urine Bilirubin Negative (Negative) Urine Urobilinogen Normal mg/dL (Negative) Urine Leukocyte Esterase Trace /uL (Negative) Urine RBC 17 /hpf (0 - 3) Urine Microscopic WBC 30 /HPF (0-3) Urine Squamous Epithelial Cells Few /hpf (<5) Urine Bacteria None seen /hpf (None Seen) Urine Mucus Few (None Seen) Urine Glucose Normal mg/dL (Normal) Sodium Level 141 mmol/L (136-145) Potassium Level 3.1 mmol/L (3.5-5.1) Chloride Level 99 mmol/L (98-107) Carbon Dioxide Level 31 mmol/L (20-31) Anion Gap 11 (5-15) Blood Urea Nitrogen 28 mg/dL (9-23) Creatinine 1.18 mg/dL (0.700-1.30) Glomerular Filtration Rate Calc 66 mL/min (>90) BUN/Creatinine Ratio 23.7 (10.0-20.0) Serum Glucose 133 mg/dL (74-106) Calcium Level 9.8 mg/dL (8.7-10.4) Total Bilirubin 1.5 mg/dL (0.2-1.0) Aspartate Amino Transferase (AST) 206 U/L (13-40) Alanine Aminotransferase (ALT) 428 U/L (7-40) Alkaline Phosphatase 122 U/L (46-116) Total Protein 6.8 g/dL (5.7-8.2) Albumin 4.6 g/dL (3.2-4.8) Lipase 49 U/L (12-53) Other Laboratory Tests 05/05/25 11:40 Brief Hx & Hospital Course: HPI: Chano James is a 69-year-old male with past medical history of colon cancer, bowel resection, RI, CAD status post PTCA in 2012, renal stones, hyperlipidemia, and bladder cancer surgery 3 weeks ago who presents to the ED with abdominal pain that started 1 week ago. He states that he was here a week ago and then discharged on Friday. Reports that his pain is 3/10 sharp and intermittent nature. He states that the pain is worse when there is pressure applied. Patient reports that he has not been on his medications for the last 2 weeks due to all the surgeries he has required and had including his Plavix. Patient denies any chest pain, shortness of breath, fever, chills, lightheadedness, weakness, dizziness, urinary symptoms, diarrhea, chest pain, shortness of breath, recent trauma or injury, recent sick contacts, recent travels, or recent ingestion of spoiled food. Summary: 05/06- CT abdomen and pelvis was concerning for possible acute worsening of chronic transition point. Currently patient complains of left lower quadrant pain near the groin. CT also showed severe hydronephrosis which was confirmed by ultrasound on the left side. Patient recently had a procedure with Urology for bladder mass/stones on left side. patient was given Gastrografin which appears to have cleared out obstruction. UA has mild concerns of possible infection, urine culture pending. Blood cultures are negative. We also note a LFT rise surgery is consulted and they have ordered right upper quadrant ultrasound which shows hepatic steatosis and hepatomegaly with some gallbladder sludge. We will have to trend LFTs. Currently no bile duct dilatation. Patient is now able to tolerate p.o. and endorses test surgery wants to escalate diet. Appears that Urology is likely going to put a nephrostomy tube on left as radiologist is consulted. - 05/06 update: Patient is irritable and upset when approached with consent/discussion for left nephrostomy. He does not want nephrostomy tube right now. Patient is advised to stay 1 night. Today patient will have discussion with neurology. Tomorrow we need to trend LFTs, possibly repeat renal ultrasound to reassess left hydronephrosis. And tomorrow we need to assess p.o. tolerance. If all these are cleared patient could possibly be discharged tomorrow (? Possible Outpatient nephrostomy, pending/defer to Urology). If for any reason patient needs to stay (LFTs rising, SBO recurs/not passing gas, worsening Left hydronephrosis+ssx), if he wants to leave it we will have to be AMA. 05/07: Appears that urology plan is to keep patient for left nephrostomy until Friday. If patient wants to AMA we will have no choice but let him go. No further efforts to for sway decision. 05/08: Patient stable. Nephrostomy tomorrow. Labs CBC today, a.m. labs tomorrow. Continue present management. 05/09 -Patient received left nephrostomy tube today with IR. Tolerated procedure well. Good urine output. Pain control. Urology plan remains the same. Patient is stable for discharge as per plan below. Diagnosis: Intractable abdominal pain with possible partial acute on chronic small bowel obstruction, resolved persistent left hydronephrosis, likely due to bladder mass, s/p left PNL nephrostomy Leukocytosis likely due to moderate left-sided hydronephrosis , resolved Acute complicated UTI, possible, resolving Lactic acidosis, due to above, resolved Possible bronchitis Hypokalemia , resolved Hyperbilirubinemia Transaminitis Tobacco use History of colon cancer History of bladder cancer with tumor removal 3 weeks ago History of hyperlipidemia History of CAD status post PTCA in 2012 History of renal stones History of RI History of bowel resection Discharge plan: - continue home medications - pain control medications as needed (OTC Tylenol and OTC nsaids ok to use) - follow-up with urology outpatient 1-2 weeks - follow-up with PCP to review discharge Condition at Discharge: Fair Final Diagnosis/Problems List Intractable abdominal pain with possible partial acute on chronic small bowel obstruction, resolved persistent left hydronephrosis, likely due to bladder mass, s/p left PNL nephrostomy Leukocytosis likely due to moderate left-sided hydronephrosis , resolved Acute complicated UTI, possible, resolving Lactic acidosis, due to above, resolved Possible bronchitis Hypokalemia , resolved Hyperbilirubinemia Transaminitis Tobacco use History of colon cancer History of bladder cancer with tumor removal 3 weeks ago History of hyperlipidemia History of CAD status post PTCA in 2012 History of renal stones History of RI History of bowel resection Discharge Disposition: Home Discharge Instruct/Medications Diet: Cardiac 2g Na,low cholest Activity: No Restrictions, As Tolerated Follow Up/Referral: See below Medications: See below Scheduled Atorvastatin Calcium (Atorvastatin Calcium), 1 TAB PO DAILY, (Reported) Clopidogrel Bisulfate (Clopidogrel), 75 MG PO DAILY, (Reported) Ezetimibe (Zetia), 10 MG PO DAILY, (Reported) Naproxen (Naprosyn Tablet), 1 TAB PO BID, (Reported) Tamsulosin Hcl (Tamsulosin Hcl), 1 CAP PO DAILY, (Reported) Discontinued Medications Atorvastatin Calcium (Lipitor), 1 TAB PO QPM, (Reported) Discharge Statement: "Patient was advised to return to the ER or call 911 if any headaches, dizziness, shortness of breath, chest pain, abdominal pain, bleeding, fevers, or worsening of medical condition. Patient was counseled about treatment plan, medications, possible side effects, patientverbalized understanding. All questions were answered to the best of my ability. This discharge took greater then 30 minutes in planning, reviewing documentation, counseling the patient, and discussing with other team members." Date of Service: May 09, 2025 Billing Provider: YOLIE CRAWFORD MD Common Visit Codes: 34735-OBF/OBS DISCH DAY >30min YOLIE CRAWFORD MD May 09, 2025 15:47
[2025-05-09] MEDS ORDERED: HYDR-4902 PO ×2 (16:34)
== END 2025-05-09 17:56 | disposition home or self-care (01) | DRG 389 ==
LOC: ER 11:07 → OVERFLOW 16:16 → CENTRAL 17:32
PROVIDERS: ADMIT Student in an Organized Health Care Education/Training Program; ATTEND Student in an Organized Health Care Education/Training Program
PROC: BT121ZZ Fluoroscopy of Left Kidney using Low Osmolar Contrast (ICD-10-PCS; principal; 2025-05-09)
PROC: 0T9430Z Drainage of Left Kidney Pelvis with Drainage Device, Percutaneous Approach (ICD-10-PCS; 2025-05-09)
DX: K56.600 Partial intestinal obstruction, unspecified as to cause (principal); E87.20 Acidosis, unspecified; N13.6 Pyonephrosis; E87.6 Hypokalemia; J40 Bronchitis, not specified as acute or chronic; E80.6 Other disorders of bilirubin metabolism; E78.5 Hyperlipidemia, unspecified; I25.10 Atherosclerotic heart disease of native coronary artery without angina pectoris; F17.210 Nicotine dependence, cigarettes, uncomplicated; R74.01 Elevation of levels of liver transaminase levels; Z85.51 Personal history of malignant neoplasm of bladder; Z79.899 Other long term (current) drug therapy; Z85.038 Personal history of other malignant neoplasm of large intestine; Z80.0 Family history of malignant neoplasm of digestive organs; Z98.61 Coronary angioplasty status; I25.2 Old myocardial infarction; Z90.49 Acquired absence of other specified parts of digestive tract; Z79.1 Long term (current) use of non-steroidal anti-inflammatories (NSAID); Z90.79 Acquired absence of other genital organ(s); Z87.442 Personal history of urinary calculi
CPT/HCPCS: 36415; 50430; 50432; 74176; 74425; 76705; 76775; 76942; 80053; 81001; 83605; 83690; 84484; 85025; 85610; 87040; 87081; 93005; 99152; G0378; J2250; J2405; J2543; J3480

== ENCOUNTER 2025-05-10 21:15 | Inpatient (IN) | payer OTHER ==
[~2025-05-10] VITALS: Ht 182.9 cm; Wt 87.3 kg
[~2025-05-10 21:15] MED LIST changes: -ATOR-507 PO; +HYDR-4902 PO; -NAP500T GT
[2025-05-10 22:17] VITALS: PULSE 66; RESP 18; O2SAT 94
[2025-05-10 22:18] VITALS: BP 136/82; PULSE 62; PULSE 66; RESP 18; RESP 19; TEMP 98.7; TEMP 98.8; O2SAT 94; O2SAT 95
--- NOTE | 2025-05-10 22:39 | DVHHPRES ---
History of Present Illness Resident Creating Document: GERMÁN TREJO History of Present Illness 69-year-old male with previous history of colon cancer, urethral resection of bladder tumor, bladder stone removal presents to the ER day 2 status post left nephrostomy tube placement on Friday at [facility], presents to the ER following passing blood mixed urine. The patient was anxious about the recurrent admission. He denies any chest pain, shortness of breath, fever, abdominal pain or any other complaints today. Past medical history: None Past surgical history: Laparotomy for colon cancer resection, surgery to resect bladder cancer, left nephrostomy tube placement Smoking history: Then 1 pack a day Alcohol: None Drugs: None Code status: Full code Review of Systems Review of Systems The patient was seen and examined at the bedside. The patient reports hematuria. No other complaints reported. Rest of the ROS is negative. Allergies: Coded Allergies: NO KNOWN ALLERGIES (Unverified , 03/30/20) Exam Vital Signs Vital Signs Date Time Temp Pulse Resp B/P (MAP) Pulse Ox O2 Delivery O2 Flow Rate FiO2 05/10/25 22:18 98.8 62 19 136/82 (100) 95 98.8 SEPSIS Sepsis Screen Physician Orders Mrsa Screen (05/10/25 22:35) Urinalysis (05/10/25 22:35) Vital Signs Date Time Temp Pulse Resp B/P (MAP) Pulse Ox O2 Delivery O2 Flow Rate FiO2 05/10/25 22:18 98.8 62 19 136/82 (100) 95 98.8 05/10/25 22:18 98.7 66 18 136/82 (100) 94 98.7 Assessment/Plan Assessment/Plan Day 2 status post left nephrostomy tube placement Hematuria due to UTI/ renal stone/ trauma -urinalysis ordered -ceftriaxone 1 g IV daily -urology consult GI prophylaxis: Not indicated DVT prophylaxis: Not indicated Diet: NPO Goals of care discussed with the patient for more than 27 minutes: Full code status Case discussed with Dr. Aden , patient and RN Plan discussed with: Patient, Other (RN) My Orders Orders - GERMÁN TREJO Procedure Category Date Status Time Mrsa Screen KAT 05/10/25 Logged 22:35 Urinalysis LAB 05/10/25 Logged 22:35 GERMÁN TREJO May 10, 2025 22:38
[2025-05-10 23:10] LABS: Urine Protein, UAD 1+ (Negative)
[2025-05-11] VITALS (9 sets, daily range): BP systolic 113–153; BP diastolic 56–81; PULSE 61–92; RESP 17–21; TEMP 97.4–98.4; O2SAT 90–97
[2025-05-11] MEDS: cefTRIAXone 1GM/50ML D5W 50 ML IV ONE (05:45)
[2025-05-11] MEDS: cefTRIAXone 1GM/50ML D5W 50 ML IV SCH (09:00)
[2025-05-11 11:42] LABS: Hematocrit 39.5 % (41.0-53.0); Hemoglobin 14.0 g/dL (13.5-17.5); Mean Corpuscular Hemoglobin 30.9 pg (28.0-32.0); Mean Corpuscular Volume 86.9 fL (80.0-100.0); Nucleated Red Blood Cells % 0.0 %
[2025-05-11 11:52] LABS: Sodium 144 mmol/L (136-145)
[2025-05-11 11:53] LABS: Anion Gap 9 (5-15); Carbon Dioxide 28 mmol/L (20-31)
[2025-05-11 11:55] LABS: Calcium 8.7 mg/dL (8.7-10.4); Chloride 107 mmol/L (98-107); Potassium 3.0 mmol/L (3.5-5.1)
[2025-05-11 11:58] LABS: BUN/Creatinine Ratio 11.4 (10.0-20.0); Glucose 87 mg/dL (74-106)
[2025-05-11 12:01] LABS: Blood Urea Nitrogen 9 mg/dL (9-23)
[2025-05-11 12:03] LABS: INR 1.01 (0.9-1.15); Partial Thromboplastin Time 24.1 SEC (24.5-34.5); Prothrombin Time 10.7 sec (9.3-11.8)
[2025-05-11] MEDS: fentaNYL CITRATE 100 MCG/2 ML VL ONE (13:12)
[2025-05-11] MEDS: MIDAZOLAM HCL 2MG/2ML 2ml VIAL (1mg/ml) ONE (13:12)
[2025-05-11] MEDS: IODIXANOL 320MG/ML 100ML BTL IV ONE (13:13)
[2025-05-11] MEDS: LIDOCAINE 2%HCL (LOCAL ANESTH.) INJ 20ML MDV ONE (13:13)
--- NOTE | 2025-05-11 15:12 | DVH ---
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 PROCEDURE: Informed consent was obtained. The patient was placed on the fluoroscopic table in a prone position and IV sedation administered. The right flank was prepped with chlorhexidine which was allo wed to dry and draped in the usual sterile fashion. Time out was performed and the soft tissues infil trated with 1% lidocaine local anesthetic. Contrast was injected through the nephrostomy tube. A glid e advantage wire was placed into the bladder through the nephrostomy tube which was removed over the wire. A [place] catheter placed into the bladder and contrast injected. The wire was placed back into th e bladder and catheter removed. An 8 Fr x 24 cm ureteral stent was advanced over the wire with distal pigtail in the bladder and proximal pigtain in the renal pelvis. Contrast injection confirms locatio n within renal collecting system. The sheath was removed. A sterile dressing was applied. No immediat e complication was identified. DAP 3.3 FLUOROSCOPY TIME: 3.5 minutes. CONTRAST USED: 20 mL. SEDATION: Dr. Geoffrey Pierce was personally responsible for the administration of moderate sedation during the procedure performed, including the use of an independent trained observer who had no other duties during the procedure. The drugs utilized were IV fentanyl and versed (see nursing log for details). The total time of supervision by the attending physician was approximately 45 minutes. FINDINGS: Mild right hydronephrosis. A focal stricture is suggested at the distal ureter at the UVJ. Placement of an 8 fr x 24 cm right ureteral stent with distal pigtail in the bladder and proximal pi gtain in the renal pelvis. The old nephrostomy tube was removed. IMPRESSION: Placement of an 8 fr x 24 cm right ureteral stent. Mild right hydronephrosis. A focal stricture is suggested at the distal ureter at the UVJ. Removal of the old nephrostomy tube.
--- NOTE | 2025-05-11 15:59 | DVHINCON2 ---
Date of service: May 11, 2025 History of Present Illness Patient was admitted to the hospitalist for the management of internalizing his left percutaneous nephrostomy tube. Interventional Radiology performed the procedure yesterday and patient is stable for discharge from urological standpoint. Will need to undergo follow up with me in two weeks to discuss further management of his indwelling stent. The stent should be either exchanged were removed in three months Family History: FH: cancer G8 MOTHER G8 FATHER Allergies: Coded Allergies: NO KNOWN ALLERGIES (Unverified , 03/30/20) Home Meds Active Scripts Hydrocodone-Acetaminophen (Hydrocodone Bitartrate/AC 5-325 mg) 1 Tab Tab, 1 TAB PO TIDP PRN for 7 Days, #21 TAB 0 Refills Prov:YOLIE CRAWFORD MD 05/09/25 Reported Medications Naproxen (NAPROSYN TABLET) 500 Mg Tb, 1 TAB PO BID, #60 TAB 1 Refill 04/29/25 Tamsulosin Hcl (Tamsulosin Hcl) 0.4 Mg Cap, 1 CAP PO DAILY 04/29/25 Atorvastatin Calcium (ATORVASTATIN CALCIUM) 40 Mg Tab, 1 TAB PO DAILY 04/29/25 Clopidogrel Bisulfate (CLOPIDOGREL) 75 Mg Tab, 75 MG PO DAILY, TAB 04/04/25 Ezetimibe (Zetia) 10 Mg Tab, 10 MG PO DAILY, TAB 02/24/24 Current Medications Current Medications Medications (Trade) Dose Ordered Sig/Jon Route PRN Reason Start Time Stop Time Status Last Admin Ceftriaxone Sodium 50 ml @ 100 mls/hr DAILY@09 IV 05/11/25 09:00 Vital Signs Vital Signs Date Time Temp Pulse Resp B/P (MAP) Pulse Ox O2 Delivery O2 Flow Rate FiO2 05/11/25 14:38 87 18 134/57 (82) 92 05/11/25 14:08 98.4 98.4 05/11/25 07:55 Room Air* 0 21 Labs/Diagnostic Data Labs Test 05/11/25 10:44 05/10/25 22:15 Range/Units White Blood Count 8.8 4.4-10.8 10^3/uL Red Blood Count 4.54 4.5-5.90 10^6/uL Hemoglobin 14.0 13.5-17.5 g/dL Hematocrit 39.5 #L 41.0-53.0 % Mean Corpuscular Volume 86.9 80.0-100.0 fL Mean Corpuscular Hemoglobin 30.9 28.0-32.0 pg Mean Corpuscular Hemoglobin Concent 35.5 32.0-36.0 g/dL Red Cell Distribution Width 14.9 H 11.8-14.3 % Platelet Count 232 140-450 10^3/uL Mean Platelet Volume 7.9 6.9-10.8 fL Neutrophils (%) (Auto) 84.0 H 37.0-80.0 % Lymphocytes (%) (Auto) 8.1 L 10.0-50.0 % Monocytes (%) (Auto) 5.5 0.0-12.0 % Eosinophils (%) (Auto) 1.9 0.0-7.0 % Basophils (%) (Auto) 0.5 0.0-2.0 % Neutrophils # (Auto) 7.4 1.6-8.6 10 ^3/uL Lymphocytes # (Auto) 0.7 0.4-5.4 10 ^3/uL Monocytes # (Auto) 0.5 0-1.3 10 ^3/uL Eosinophils # (Auto) 0.2 0-0.8 10 ^3/uL Basophils # (Auto) 0 0-0.2 10 ^3/uL Nucleated Red Blood Cells 0.0 % Prothrombin Time 10.7 9.3-11.8 sec Prothrombin Time INR 1.01 0.9-1.15 Activated Partial Thromboplast Time 24.1 L 24.5-34.5 SEC Sodium Level 144 136-145 mmol/L Potassium Level 3.0 L 3.5-5.1 mmol/L Chloride Level 107 98-107 mmol/L Carbon Dioxide Level 28 20-31 mmol/L Anion Gap 9 5-15 Blood Urea Nitrogen 9 9-23 mg/dL Creatinine 0.79 0.700-1.30 mg/dL Glomerular Filtration Rate Calc 95 >90 mL/min BUN/Creatinine Ratio 11.4 10.0-20.0 Serum Glucose 87 74-106 mg/dL Calcium Level 8.7 8.7-10.4 mg/dL Urine Color Light-red Yellow Urine Clarity Turbid H Clear Urine pH 7.0 5.0-9.0 Urine Specific [place] 1.009 1.001-1.035 Urine Protein 1+ H Negative Urine Ketones Negative Negative Urine Blood 3+ H Negative /uL Urine Nitrite Negative Negative Urine Bilirubin Negative Negative Urine Urobilinogen Normal Negative mg/dL Urine Leukocyte Esterase 2+ Negative /uL Urine RBC 4600 0 - 3 /hpf Urine Microscopic WBC 3 0-3 /HPF Urine Squamous Epithelial Cells None seen <5 /hpf Urine Bacteria None seen None Seen /hpf Urine Mucus Few None Seen Urine Glucose Normal Normal mg/dL Microbiology Date/Time Source Procedure Growth Status 05/10/25 22:40 Nose MRSA Screen - Final Complete Assessment Left hydro nephrosis with internalized ureteral stent per IR service Plan discussed with: Patient, Other YANCI GOFF MD May 11, 2025 15:59
[2025-05-11] MEDS: POTASSIUM CHL 20 Meq TABLET PO ONE (16:18)
--- NOTE | 2025-05-11 16:51 | DVH ---
EXAM: XY KUB ABDOMEN SINGLE VIEW HISTORY: stent placement COMPARISON: XY KUB ABDOMEN SINGLE VIEW on DOS: 05/01/25 TECHNIQUE: Single AP of the abdomen and pelvis was obtained. Findings: Frontal view of the abdomen demonstrates a nonobstructive bowel gas pattern. No visualized renal calc ezra. There is no evidence of an acute fracture, dislocation, blastic, or lytic lesions. The visualized portions of the lung bases are unremarkable. Left-sided double-J nephroureteral stent. No superficial soft tissue abnormalities. Impression: 1. Nonobstructive bowel gas pattern.
--- NOTE | 2025-05-11 17:30 | DVHDS2 ---
Discharge Summary Date of Admission May 10, 2025 at 21:49 Labs/Diagnostic Data: Laboratory Results Test 05/11/25 10:44 05/10/25 22:15 White Blood Count 8.8 10^3/uL (4.4-10.8) Red Blood Count 4.54 10^6/uL (4.5-5.90) Hemoglobin 14.0 g/dL (13.5-17.5) Hematocrit 39.5 % (41.0-53.0) Mean Corpuscular Volume 86.9 fL (80.0-100.0) Mean Corpuscular Hemoglobin 30.9 pg (28.0-32.0) Mean Corpuscular Hemoglobin Concent 35.5 g/dL (32.0-36.0) Red Cell Distribution Width 14.9 % (11.8-14.3) Platelet Count 232 10^3/uL (140-450) Mean Platelet Volume 7.9 fL (6.9-10.8) Neutrophils (%) (Auto) 84.0 % (37.0-80.0) Lymphocytes (%) (Auto) 8.1 % (10.0-50.0) Monocytes (%) (Auto) 5.5 % (0.0-12.0) Eosinophils (%) (Auto) 1.9 % (0.0-7.0) Basophils (%) (Auto) 0.5 % (0.0-2.0) Neutrophils # (Auto) 7.4 10 ^3/uL (1.6-8.6) Lymphocytes # (Auto) 0.7 10 ^3/uL (0.4-5.4) Monocytes # (Auto) 0.5 10 ^3/uL (0-1.3) Eosinophils # (Auto) 0.2 10 ^3/uL (0-0.8) Basophils # (Auto) 0 10 ^3/uL (0-0.2) Nucleated Red Blood Cells 0.0 % Prothrombin Time 10.7 sec (9.3-11.8) Prothrombin Time INR 1.01 (0.9-1.15) Activated Partial Thromboplast Time 24.1 SEC (24.5-34.5) Sodium Level 144 mmol/L (136-145) Potassium Level 3.0 mmol/L (3.5-5.1) Chloride Level 107 mmol/L (98-107) Carbon Dioxide Level 28 mmol/L (20-31) Anion Gap 9 (5-15) Blood Urea Nitrogen 9 mg/dL (9-23) Creatinine 0.79 mg/dL (0.700-1.30) Glomerular Filtration Rate Calc 95 mL/min (>90) BUN/Creatinine Ratio 11.4 (10.0-20.0) Serum Glucose 87 mg/dL (74-106) Calcium Level 8.7 mg/dL (8.7-10.4) Urine Color Light-red (Yellow) Urine Clarity Turbid (Clear) Urine pH 7.0 (5.0-9.0) Urine Specific [place] 1.009 (1.001-1.035) Urine Protein 1+ (Negative) Urine Ketones Negative (Negative) Urine Blood 3+ /uL (Negative) Urine Nitrite Negative (Negative) Urine Bilirubin Negative (Negative) Urine Urobilinogen Normal mg/dL (Negative) Urine Leukocyte Esterase 2+ /uL (Negative) Urine RBC 4600 /hpf (0 - 3) Urine Microscopic WBC 3 /HPF (0-3) Urine Squamous Epithelial Cells None seen /hpf (<5) Urine Bacteria None seen /hpf (None Seen) Urine Mucus Few (None Seen) Urine Glucose Normal mg/dL (Normal) Other Laboratory Tests 05/11/25 10:44 Discharge Disposition: AMA Discharge Instruct/Medications Scheduled Atorvastatin Calcium (Atorvastatin Calcium), 1 TAB PO DAILY, (Reported) Clopidogrel Bisulfate (Clopidogrel), 75 MG PO DAILY, (Reported) Ezetimibe (Zetia), 10 MG PO DAILY, (Reported) Naproxen (Naprosyn Tablet), 1 TAB PO BID, (Reported) Tamsulosin Hcl (Tamsulosin Hcl), 1 CAP PO DAILY, (Reported) Scheduled PRN Hydrocodone-Acetaminophen (Hydrocodone Bitartrate/AC 5-325 mg), 1 TAB PO TIDP PRN Discharge Statement: "Patient was advised to return to the ER or call 911 if any headaches, dizziness, shortness of breath, chest pain, abdominal pain, bleeding, fevers, or worsening of medical condition. Patient was counseled about treatment plan, medications, possible side effects, patientverbalized understanding. All questions were answered to the best of my ability. This discharge took greater then 30 minutes in planning, reviewing documentation, counseling the patient, and discussing with other team members." ASSESSMENT ASSESSMENT Assessment IVAN CLEMONS MD May 11, 2025 17:30
== END 2025-05-11 17:25 | disposition left against medical advice (07) | DRG 690 ==
LOC: EAST 21:49
PROVIDERS: ADMIT Internal Medicine; ATTEND Internal Medicine
PROC: 0T763DZ Dilation of Right Ureter with Intraluminal Device, Percutaneous Approach (ICD-10-PCS; principal; 2025-05-11)
PROC: 0TP5X0Z Removal of Drainage Device from Kidney, External Approach (ICD-10-PCS; 2025-05-11)
DX: N13.6 Pyonephrosis (principal); Z53.29 Procedure and treatment not carried out because of patient's decision for other reasons; Z85.038 Personal history of other malignant neoplasm of large intestine; Z79.899 Other long term (current) drug therapy
CPT/HCPCS: 36415; 50694; 74018; 74425; 80048; 81001; 85025; 85610; 85730; 87081; 99152; G0378; J2250; Q9967

== ENCOUNTER 2025-05-18 05:48 | Outpatient (CLI) | payer OTHER ==
[~2025-05-18 05:48] MED LIST changes: +ACET500T58 PO; +ATOR-507 PO; +LEVO500T91 PO; +NAP500T GT; +TICA1TAB PO
[2025-05-18 10:53] LABS: Urine Protein, UAD 1+ (Negative)
== END 2025-05-18 17:00 | disposition home or self-care (01) ==
LOC: LAB 05:48
PROVIDERS: ATTEND Urology
DX: C61 Malignant neoplasm of prostate (principal)
CPT/HCPCS: 81001; 87086

== ENCOUNTER 2025-06-14 09:16 | Outpatient (CLI) | payer OTHER ==
[~2025-06-14 09:16] MED LIST changes: -ACET500T58 PO; -ATOR-507 PO; -LEVO500T91 PO; -NAP500T GT; -TICA1TAB PO
[2025-06-14 10:20] LABS: Urine Protein, UAD 2+ (Negative); Urine WBC Clumps PRESENT /hpf (None Seen)
== END 2025-06-14 17:00 | disposition home or self-care (01) ==
LOC: LAB 09:16
PROVIDERS: ATTEND Urology
DX: C67.9 Malignant neoplasm of bladder, unspecified (principal)
CPT/HCPCS: 81001; 87086

== ENCOUNTER 2025-09-13 07:53 | Day surgery (SDC) | payer OTHER ==
[2025-09-06 16:01] LABS: Hematocrit 46.7 % (41.0-53.0); Hemoglobin 15.8 g/dL (13.5-17.5); Mean Corpuscular Hemoglobin 29.8 pg (28.0-32.0); Mean Corpuscular Volume 88.0 fL (80.0-100.0); Nucleated Red Blood Cells % 1.2 %
[2025-09-06 16:18] LABS: INR 0.92 (0.9-1.15); Partial Thromboplastin Time 25.5 SEC (24.5-34.5); Prothrombin Time 9.8 sec (9.3-11.8)
[2025-09-06 16:46] LABS: Alanine Aminotransferase 33 U/L (7-40); Albumin 4.6 g/dL (3.2-4.8); Anion Gap 8 (5-15); BUN/Creatinine Ratio 13.0 (10.0-20.0); Bilirubin, Total 0.4 mg/dL (0.2-1.0); Blood Urea Nitrogen 20 mg/dL (9-23); Calcium 10.1 mg/dL (8.7-10.4); Carbon Dioxide 28 mmol/L (20-31); Chloride 106 mmol/L (98-107); Glucose 87 mg/dL (74-106); Potassium 4.6 mmol/L (3.5-5.1); Sodium 142 mmol/L (136-145); Total Protein 7.5 g/dL (5.7-8.2)
[2025-09-06 16:47] LABS: Urine Protein, UAD TRACE (Negative)
[2025-09-06 16:50] LABS: Alkaline Phosphatase 130 U/L (46-116)
[~2025-09-13] VITALS: Ht 185.4 cm; Wt 83.0 kg
[~2025-09-13 07:53] MED LIST changes: -CLOP75TA70 PO; -EZET10TA22 PO; -HYDR-4902 PO; -NAP500T PO; -TAMS0.4C39 PO
[2025-09-13] MEDS ORDERED: ACETAMINOPHEN IV 1000 MG/100ML (10MG/ML) IV ONE (07:54)
[2025-09-13] MEDS: CIPROFLOXACIN 400MG/200ML 200 ML IV ONE (11:05)
[2025-09-13] MEDS ORDERED: fentaNYL CITRATE 100 MCG/2 ML VL ONE (11:08)
[2025-09-13] MEDS ORDERED: MIDAZOLAM HCL 2MG/2ML 2ml VIAL (1mg/ml) ONE (11:08)
[2025-09-13] MEDS ORDERED: ONDANSETRON HCL 4 MG/2 ML VIAL IV PRN (11:15)
[2025-09-13] MEDS ORDERED: HYDROmorphone HCL 2 MG/ML VL/or syr IV PRN (11:15)
[2025-09-13] MEDS ORDERED: MORPHINE SULFATE 4 MG/ML SYR/VIAL IV PRN (11:15)
[2025-09-13] MEDS ORDERED: hydrALAZINE HCL 20 MG/ML VL IV PRN (11:15)
[2025-09-13] MEDS ORDERED: MIDAZOLAM HCL 2MG/2ML 2ml VIAL (1mg/ml) IV PRN (11:15)
[2025-09-13] MEDS ORDERED: PROPOFOL 10 MG/ML 20 ML IV ONE (11:43)
[2025-09-13 12:05] VITALS: PULSE 60; RESP 15; TEMP 97.5; O2SAT 100
--- NOTE | 2025-09-13 12:22 | DVHNC2 ---
Procedure - OPERATIVE REPORT Pre-op. Diagnosis: Ureteral Stent (Foreign Body) Bladder cancer Left hydronephrosis Post-op. Diagnosis: Same as pre-op diagnosis Operation: Cystoscopy, Ureteral stent removal - Left Retrograde Pyelogram - Left Cystoscopy, Ureteral stent placement - Left Anesthesia: General Indications: Patient with bladder cancer, who was found to have left hydronephrosis due to extrinsic compression of the ureter. Patient had antegrade ureteral stent placed by IR service. Patient is here for stent removal, retrograde peylogram and possible replacement of stent. Risks of Infections and damage to the surrounding structures were discussed. Benefits of stent removal when it is no longer needed were explained. Informed consent obtained. Details of Procedure: Patient was place into a supine position. He was prepped and draped in the usual manner. A 21 Fr. Cystoscope was assembled and introduced. FINDINGS: Urethra - + strictures dilated with cystoscope; Bladder - calcifications around the tumor resected site of the left trigone. The left stent was grasped using alligator flexible graspers and removed without difficulty. A 6 Fr Open-ended catheter was used to cannulate the ureteral orifice and retrograde pyelogram was done using 10 cc of 50% Renogram. There was hydronephrosis and a narrow area in the distal ureter. As such, decision was made to replace with another ureteral stent. A sensor tip guide wire was advanced into the kidney and now a 7 Fr. x 26 cm JJ stent was advanced into the kidney. Good curl was seen in the kidney under fluoroscopy once the wire was removed and good curl of the distal end of the stent was seen in the bladder under direct visualization. The bladder was emptied and the cystoscope was removed. Patient tolerated the procedure well. Specimens: left ureteral stent Complications: None Findings: Patient will need to undergo cystoscopy with resection and removal of left periureteral orifice lesions/stones/necrotic tissues. Notes: 7 Fr. x 26 cm JJ stent YANCI GOFF MD Sep 13, 2025 12:22
--- NOTE | 2025-09-13 12:24 | DVHDS2 ---
New Physician D'charge PN Admitting Diagnosis Admitting Diagnosis Left ureteral stent History of bladder cancer Discharge Diagnosis Same Operations or Procedures Cystoscopy with left ureteral stent removal, left retrograde pyelogram and left ureteral stent placement Reason(s) For Hospitalization Surgery Treatment Plan Discharge Condition of Discharge Good Disposition Home Discharge Instructions Diet: Regular Activity: Light activity Activity comment: As tolerated Medications: Given Follow Up Care Follow Up/Referral: One week for further discussion of management of his left ureteral stent and newly found bladder lesions Discharge Statement: "Patient was advised to return to the ER or call 911 if any headaches, dizziness, shortness of breath, chest pain, abdominal pain, bleeding, fevers, or worsening of medical condition. Patient was counseled about treatment plan, medications, possible side effects, patientverbalized understanding. All questions were answered to the best of my ability. This discharge took greater then 30 minutes in planning, reviewing documentation, counseling the patient, and discussing with other team members." YANCI GOFF MD Sep 13, 2025 12:24
--- NOTE | 2025-09-13 13:11 | DVH ---
C-ARM FLUOROSCOPY: PROCEDURE: Cystoscopy FLUOROSCOPY TIME: 48.6 sec DAP: 10.72 mgy FINDINGS: Spot intraoperative C arm radiographs demonstrating cystoscopy IMPRESSION: Please refer to surgical report for detailed findings.
--- NOTE | 2025-09-13 13:12 | DVH ---
C-ARM FLUOROSCOPY: PROCEDURE: Cystoscopy FLUOROSCOPY TIME: 48.6 sec DAP: 10.72 mgy FINDINGS: Spot intraoperative C arm radiographs demonstrating cystoscopy IMPRESSION: Please refer to surgical report for detailed findings.
[2025-09-13 13:35] VITALS: BP 150/78; PULSE 65; RESP 18; O2SAT 93
[2025-09-13] MEDS: IOHEXOL 300 MG/ML 100ML BOTTLE IJ ONE (14:59)
== END 2025-09-13 14:05 | disposition home or self-care (01) ==
LOC: SUR 07:53
PROVIDERS: ATTEND Urology
DX: C67.9 Malignant neoplasm of bladder, unspecified (principal); N13.1 Hydronephrosis with ureteral stricture, not elsewhere classified; I25.10 Atherosclerotic heart disease of native coronary artery without angina pectoris; I12.9 Hypertensive chronic kidney disease with stage 1 through stage 4 chronic kidney disease, or unspecified chronic kidney disease; N18.2 Chronic kidney disease, stage 2 (mild); E78.00 Pure hypercholesterolemia, unspecified; Z79.899 Other long term (current) drug therapy; Z98.890 Other specified postprocedural states
CPT/HCPCS: 36415; 52332; 74018; 74420; 80053; 81001; 85025; 85610; 85730; 87086; 88300; A4315; A4344; C1769; J0744; J1100; J2250; J2704; J3010; J7030; Q9967; 76000; J0131

== ENCOUNTER 2025-09-13 20:38 | Emergency (ER) | payer OTHER ==
[~2025-09-13] VITALS: Ht 185.4 cm; Wt 83.0 kg
[2025-09-13 20:41] VITALS: BP 150/95; PULSE 111; RESP 20; TEMP 97.7; O2SAT 97
== END 2025-09-13 21:45 | disposition left against medical advice (07) ==
LOC: ER 20:38
DX: Z46.6 Encounter for fitting and adjustment of urinary device (principal); Z53.21 Procedure and treatment not carried out due to patient leaving prior to being seen by health care provider